=== PATIENT | male | born 1960 | race Caucasian/White ===

== ENCOUNTER 2020-09-08 10:05 | Outpatient (REF) | payer OTHER, SELFPAY ==
[2020-09-08 11:16] LABS: MANUAL DIFF FLAG NO
[2020-09-08 11:28] LABS: Basophils Absolute Auto 0.1 X10*3/uL (0.0-0.2); Basophils Percent Auto 1.1 % (0-2); Eosinophils Absolute Auto 0.1 X10*3/uL (0.0-0.4); Eosinophils Percent Auto 2.6 % (0-4); Hematocrit 40.8 % (42-52); Hemoglobin 13.8 g/dl (14.0-18.0); Imm Gran Abs Auto 0.01 X10*3/uL (0.00-0.03); Imm Gran Pct Auto 0.2 % (0.0-0.4); Lymphocytes Absolute Auto 0.9 X10*3/uL (1.2-4.9); Lymphocytes Percent Auto 19.2 % (20-40); Mean Corpuscular HGB Conc 33.8 g/dl (31.0-36.0); Mean Corpuscular Hemoglobin 29.2 pg (27.0-33.0); Mean Corpuscular Volume 86.4 fL (80-98); Mean Platelet Volume 10.7 fL (9.4-12.4); Monocytes Absolute Auto 0.3 X10*3/uL (0.1-1.2); Neutrophils Absolute Auto 3.3 X10*3/uL (2.0-8.3); Neutrophils Percent Auto 70.9 % (45-73); Platelet Count 185 X10*3/uL (160-400); Red Blood Count 4.72 X10*6/uL (4.60-5.80); Red Cell Distribution Width 13.2 % (11.0-16.0); White Blood Count 4.7 X10*3/uL (4.8-10.8)
[2020-09-08 11:32] LABS: Estimated Average Glucose 134 mg/dL; Hemoglobin A1c % 6.3 %
[2020-09-08 12:17] LABS: Alanine Aminotransferase 64 U/L (0-40); Albumin Level 4.2 g/dL (3.5-5.0); Alkaline Phosphatase 81 U/L (39-117); Anion Gap 12 (12-20); Aspartate Amino Transferase 42 U/L (5-37); Bilirubin Total 0.6 mg/dL (0.0-1.0); Blood Urea Nitrogen 17 mg/dL (9-16); Calcium 9.2 mg/dL (8.4-10.2); Carbon Dioxide 29 mmol/L (22-29); Chloride 102 mmol/L (96-108); Cholesterol 156 mg/dL; Estimated Glomerular Filt Rate > 60; Glucose Fasting 134 mg/dL (60-99); HDL Cholesterol 23 mg/dL; Potassium 4.2 mmol/l (3.3-5.1); Sodium 139 mmol/L (135-145); Total Protein 7.3 g/dL (6.5-8.0); Triglycerides 722 mg/dL
== END 2020-09-08 10:06 | disposition home or self-care (01) ==
LOC: HO.LAB 10:05
PROVIDERS: PCP Internal Medicine Medical Oncology; Visit Provider Internal Medicine Medical Oncology
DX: I10 Essential (primary) hypertension (principal); E66.9 Obesity, unspecified; E11.40 Type 2 diabetes mellitus with diabetic neuropathy, unspecified; E78.00 Pure hypercholesterolemia, unspecified
CPT/HCPCS: 36415; 80053; 80061; 83036; 85025

== ENCOUNTER → 2020-09-29 11:35 | Outpatient (BNVA) | payer OTHER, SELFPAY | PROVIDERS: PCP Internal Medicine Medical Oncology; Referring Provider Internal Medicine Medical Oncology; Visit Provider Internal Medicine | DX: G47.33 Obstructive sleep apnea (adult) (pediatric) (principal); E66.9 Obesity, unspecified; Z68.35 Body mass index [BMI] 35.0-35.9, adult; Z99.89 Dependence on other enabling machines and devices | CPT/HCPCS: 99212 ==

== ENCOUNTER 2020-11-18 17:12 | Emergency (ER) | payer OTHER, SELFPAY ==
[2020-11-18 17:49] VITALS: BP 192/99; PULSE 88; RESP 16; TEMP 36.4; O2SAT 96; BMI 35.3
--- NOTE | 2020-11-18 17:50 | ED_ITS ---
HPI - Extremity Injury (Upper) General Chief Complaint: Wound/Laceration Stated Complaint: hand wound Time Seen by Provider: 11/18/20 18:40 Source: patient Mode of arrival: ambulatory Limitations: no limitations History of Present Illness HPI narrative: 60-year-old male with past medical history of diabetes, hyperte nsion, hyperlipidemia, obstructive sleep apnea compliant with CPAP, presents with a right hand crush injury. 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 this afternoon. He cleaned out the wound and applied a Band-Aid but the pain and swelling continued to increase. Does not report any other symptoms. MD complaint: injury to: right and hand Onset (ago): hour(s) Other injuries: none Handedness: right Place: home Severity: moderate Severity scale (1-10): 7 Relieving factors: none Exacerbating factors: movement of extremity Context: crush Associated symptoms: denies other symptoms Treatments prior to arrival: bandage and NSAIDS Related Data Home Medications Medication Instructions Recorded Confirmed insulin glargine 100 unit/mL 90 unit SUBCUT BID ml 09/29/20 09/29/20 subcutaneous solution latanoprost 0.005 % eye drops 1 drp OPHTHALMIC (EYE) DAILY 09/29/20 09/29/20 Previous Rx's Medication Instructions Recorded gabapentin 300 mg capsule 300 mg PO TID #90 cap 11/01/20 Allergies Allergy/AdvReac Type Severity Reaction Status Date / Time pollen extracts [POLLEN] Allergy Unknown WATERY Verified 09/29/20 11:44 EYES/SNEEZING Review of Systems Review of Systems: Constitutional: No Fever, No Chills ENT/Mouth: No Ear Pain, No Hoarseness, No sore throat Eyes: No Eye Pain, No Swelling, No Redness, No Foreign Body Cardiovascular: No Chest Pain, No SOB Respiratory: No Cough, No Dyspnea Gastrointestinal: No Nausea, No Vomiting, No Diarrhea, No abdominal Pain Genitourinary: No Dysuria, No Hematuria Musculoskeletal: positive right hand pain, No Myalgias, No Joint Swelling Skin: No Skin lacerations, No rash Neuro: No Weakness, No Numbness, No Paresthesias, No Loss of Consciousness, No Dizziness, No Headache Psych: No Anxiety/Panic, No Depression Heme/Lymph: no easy bruising, no Lymphadenopathy Endocrine: No Polyuria, No Polydipsia Yes all other systems are reviewed and are negative PMFSH Past Medical History Attestation statement: The following information was validated with the patient. Medical History Diabetes mellitus Hyperlipidemia Hypertension Obesity (BMI 30-39.9) PAT (obstructive sleep apnea) Restless leg syndrome Social History Social History Smoking Status: Never smoker Use of substances other than those prescribed or required for medical reasons: No Advance Directives: No Advance Directives Information Provided: Yes Physical Exam Vital Signs: Vital Signs: Last Vital Signs Temp 97.5 F 11/18/20 17:49 Pulse 88 11/18/20 17:49 Resp 16 11/18/20 17:49 BP 192/99 H 11/18/20 17:49 Pulse Ox 96 11/18/20 17:49 Body Mass Index 35.3 Appearance: Alert. Oriented X3. No acute distress. Eyes: Pupils equal, round and reactive to light. ENT: Pharynx normal. Neck: Normal inspection. Neck supple. CVS: Normal heart rate and rhythm. Pulses normal. Respiratory: No respiratory distress. Breath sounds normal. Abdomen: Soft and nontender. Skin: Skin warm and dry. Normal skin color. Normal skin turgor. Extremities: No lower extremity edema. Neuro: No motor deficit. No sensory deficit. Skin: Other: Extrem: Other: Course Course Course Narrative: 60-year-old male with right hand crush injury, plan of care is for laceration repair and x-rays. He has full range of motion to all of his digits, brisk capillary refill and equal pulses to both extremities. Neurovascularly intact. Laceration is superficial, plan of care is for bacitracin and bandage, 1st metacarpal flange nondisplaced fracture. Plan of care is right thumb spica splint and for follow-up with Orthopedics. Neurovascularly intact with brisk capillary refill to all digits status post thumb spica splint. Patient verbalized understanding of and agrees plan of care discharge home. MDM - Extremity Injury (Upper) Differential Diagnosis Differential diagnosis: Likely fracture of wrist and fracture of hand Medical Records Attestation: I reviewed the patient's medical records. Lab Data Attestation: I reviewed the patient's lab results. Imaging Data Right hand x-ray: Attestation: I personally reviewed and interpreted this imaging study as follows: Radiologist's impression: EXAMINATION: XR HAND, RIGHT CLINICAL INFORMATION: Crush injury COMPARISON: Right hand films 03/28/2011 TECHNIQUE: PA, lateral, and oblique views of the right hand. FINDINGS: There is an acute transverse nondisplaced fracture involving the proximal diaphysis of the first metacarpal. Some mild mottling is noted in the soft tissues in this region which could be related to the patient's crush injury. No radiopaque foreign bodies are seen. No other fractures are detected. A small cyst is noted in the navicular. XR/XR hand RT min 3V IMPRESSION: Nondisplaced transverse fracture of the proximal diaphysis of the first metacarpal Discharge Plan Discharge Clinical Impression: Abrasion First metacarpal bone fracture Qualifiers: Encounter type: initial encounter Fracture type: closed Metacarpal location: shaft Fracture alignment: nondisplaced Laterality: right Qualified Code(s): S62.244A - Nondisplaced fracture of shaft of first metacarpal bone, right hand, initial encounter for closed fracture Patient Disposition: Home, Self-Care Instructions: Hand Fracture (ED), Thumb Fracture (ED) Additional Instructions: You were evaluated for a crush injury to the right hand. You have a metacarpal fracture, a fracture of 1 of the bones for your thumb. We have placed you in a thumb spica splint. Please keep the splint in place until you follow-up with orthopedics. Please call Dr. Braxton and request an appointment. Please let him know that you are diabetic and you have an abrasion over the fracture site. Thank you for choosing this emergency department for evaluation. Please follow-up with primary care physician as needed. Return to the emergency department for any new, concerning, or worsening symptoms. Prescriptions: No Action gabapentin 300 mg capsule 300 mg PO TID Qty: 90 RF: 0 Lantus U-100 Insulin 100 unit/mL solution 90 unit subcut BID RF: 0 latanoprost 0.005 % drops 1 drp ophthalmic (eye) DAILY RF: 0 Referrals: Contreras Braxton MD [Physician] - 2 days (First metacarpal nondisplaced fracture, right hand)
== END 2020-11-18 19:19 | disposition home or self-care (01) ==
PROVIDERS: Emergency Provider Emergency Medicine; PCP Internal Medicine Medical Oncology
DX: S62.244A Nondisplaced fracture of shaft of first metacarpal bone, right hand, initial encounter for closed fracture (principal); W20.8XXA Other cause of strike by thrown, projected or falling object, initial encounter; E11.9 Type 2 diabetes mellitus without complications; I10 Essential (primary) hypertension; Y93.H3 Activity, building and construction; Y92.019 Unspecified place in single-family (private) house as the place of occurrence of the external cause; Y99.9 Unspecified external cause status; Z79.4 Long term (current) use of insulin
CPT/HCPCS: 29125; 73130; 90471; 90715; 99284

== ENCOUNTER → 2020-11-25 13:19 | Outpatient (BNVA) | payer OTHER, SELFPAY | PROVIDERS: Visit Provider Orthopaedic Surgery | DX: S62.233A Other displaced fracture of base of first metacarpal bone, unspecified hand, initial encounter for closed fracture (principal) | CPT/HCPCS: 99202 ==

== ENCOUNTER 2020-12-16 09:19 | Outpatient (REF) | payer OTHER, SELFPAY ==
--- NOTE | 2020-12-16 11:31 | XR_ITS ---
EXAMINATION: XR HAND, RIGHT CLINICAL INFORMATION: Fracture. COMPARISON: Right hand radiographs dated 11/18/2020 TECHNIQUE: PA, lateral, and oblique views of the right hand. FINDINGS: Redemonstration of an oblique fracture through the 1st metacarpal diaphysis in similar anatomic alignment. No significant new bone/callus formation. No joint space narrowing or marginal osteophytes. No osseous erosion. No abnormal soft tissue calcification. XR/XR hand RT min 3V IMPRESSION: First metacarpal fracture in similar anatomic alignment without new bone/callus formation.
== END 2020-12-16 09:20 | disposition home or self-care (01) ==
LOC: HO.HOSX 09:19
PROVIDERS: Visit Provider Orthopaedic Surgery
DX: S62.201D Unspecified fracture of first metacarpal bone, right hand, subsequent encounter for fracture with routine healing (principal)
CPT/HCPCS: 73130; 99212

== ENCOUNTER 2021-01-20 07:50 | Outpatient (REF) | payer OTHER, SELFPAY ==
--- NOTE | ~2021-01-20 | XR_ITS ---
EXAMINATION: XR HAND, RIGHT CLINICAL INFORMATION: Fracture first metacarpal. Follow-up. COMPARISON: Radiographs right hand 12/16/2020, 11/18/2020 TECHNIQUE: PA, lateral, and oblique views of the right hand. FINDINGS: The right first metacarpal shaft fracture is unchanged in alignment. There is some callus formation present. Fracture line still visible. No new fracture or destructive process. XR/XR hand RT min 3V IMPRESSION: Healing fracture right first metacarpal. No change in alignment.
== END 2021-01-20 07:51 | disposition home or self-care (01) ==
LOC: HO.HOSX 07:50
PROVIDERS: Visit Provider Orthopaedic Surgery
DX: S62.501A Fracture of unspecified phalanx of right thumb, initial encounter for closed fracture (principal)
CPT/HCPCS: 73130; 99212

== ENCOUNTER 2021-03-09 10:30 | Outpatient (REF) | payer OTHER, SELFPAY ==
--- NOTE | 2021-03-09 10:32 | EMG_ITS ---
This is a 60-year-old man with a 40-year history of diabetes, who is known to have diabetic peripheral neuropathy. He has had numbness in both hands, but now has lost use in the right hand, which has become quite weak. PHYSICAL EXAMINATION: On examination, he has marked weakness of the intrinsic hand muscles, both in opposition, abductor pollicis brevis, and finger spread, and diffuse loss of sensation. He is areflexic throughout with distal sensory loss. IMPRESSION: Diabetic neuropathy with superimposed median and ulnar neuropathy. Nerve conduction EMG study: Severe diffuse sensory motor peripheral neuropathy in the upper extremities with severe compression palsy of the left ulnar nerve at the elbow and end-stage right median neuropathy. EMG of the right upper extremity shows active denervation in the intrinsic hand muscles of the right hand, innervated both by ulnar and median nerves. MD ALEC Pedraza/ARTISL / [id number]
== END 2021-03-09 10:31 | disposition home or self-care (01) ==
LOC: HO.NEURO 10:30
PROVIDERS: PCP Internal Medicine Medical Oncology; Visit Provider Orthopaedic Surgery
DX: R20.0 Anesthesia of skin (principal)
CPT/HCPCS: 95885; 95910

== ENCOUNTER → 2021-04-05 11:37 | Outpatient (BNVA) | payer OTHER, SELFPAY | PROVIDERS: PCP Internal Medicine Medical Oncology; Visit Provider Internal Medicine | DX: E66.9 Obesity, unspecified (principal); G47.33 Obstructive sleep apnea (adult) (pediatric); R06.00 Dyspnea, unspecified | CPT/HCPCS: 99212 ==

== ENCOUNTER 2021-09-13 09:48 | Outpatient (REF) | payer OTHER, SELFPAY ==
[2021-09-13 10:08] LABS: MANUAL DIFF FLAG NO
[2021-09-13 10:41] LABS: Basophils Percent Auto 0.9 % (0-2); Eosinophils Absolute Auto 0.1 X10*3/uL (0.0-0.4); Hemoglobin 13.7 g/dl (14.0-18.0); Imm Gran Abs Auto 0.01 X10*3/uL (0.00-0.03); Imm Gran Pct Auto 0.2 % (0.0-0.4); Lymphocytes Absolute Auto 1.1 X10*3/uL (1.2-4.9); Lymphocytes Percent Auto 24.2 % (20-40); Mean Corpuscular HGB Conc 34.3 g/dl (31.0-36.0); Mean Corpuscular Hemoglobin 29.1 pg (27.0-33.0); Mean Corpuscular Volume 84.9 fL (80-98); Mean Platelet Volume 10.5 fL (9.4-12.4); Monocytes Absolute Auto 0.3 X10*3/uL (0.1-1.2); Monocytes Percent Auto 7.2 % (2-11); Neutrophils Absolute Auto 2.8 X10*3/uL (2.0-8.3); Neutrophils Percent Auto 64.5 % (45-73); Platelet Count 170 X10*3/uL (160-400); Red Blood Count 4.71 X10*6/uL (4.60-5.80); Red Cell Distribution Width 13.2 % (11.0-16.0); White Blood Count 4.3 X10*3/uL (4.8-10.8)
[2021-09-13 11:07] LABS: Estimated Average Glucose 148 mg/dL; Hemoglobin A1c % 6.8 %
[2021-09-13 11:16] LABS: Alanine Aminotransferase 66 U/L (0-40); Albumin Level 4.3 g/dL (3.5-5.0); Alkaline Phosphatase 80 U/L (39-117); Anion Gap 16 (12-20); Aspartate Amino Transferase 46 U/L (5-37); Bilirubin Total 0.5 mg/dL (0.0-1.0); Blood Urea Nitrogen 18 mg/dL (9-16); Calcium 9.4 mg/dL (8.4-10.2); Carbon Dioxide 25 mmol/L (22-29); Chloride 103 mmol/L (96-108); Cholesterol 132 mg/dL; Estimated Glomerular Filt Rate 59; Glucose Fasting 171 mg/dL (60-99); HDL Cholesterol 24 mg/dL; Potassium 4.6 mmol/L (3.3-5.1); Sodium 139 mmol/L (135-145); Total Protein 7.1 g/dL (6.5-8.0); Triglycerides 406 mg/dL
[2021-09-13 14:29] LABS: Creatinine Urine 58.84 mg/dL; Microalbum/Creatinine Ratio Ur 149.5 ug/mg cr
== END 2021-09-13 09:49 | disposition home or self-care (01) ==
LOC: HO.LAB 09:48
PROVIDERS: PCP Internal Medicine Medical Oncology; Visit Provider Internal Medicine Medical Oncology
DX: I10 Essential (primary) hypertension (principal); E11.40 Type 2 diabetes mellitus with diabetic neuropathy, unspecified; D70.9 Neutropenia, unspecified; E78.5 Hyperlipidemia, unspecified
CPT/HCPCS: 36415; 80053; 80061; 82043; 83036; 85025

== ENCOUNTER → 2021-10-04 11:31 | Outpatient (BNVA) | payer OTHER, SELFPAY | PROVIDERS: PCP Internal Medicine Medical Oncology; Visit Provider Internal Medicine | DX: G47.33 Obstructive sleep apnea (adult) (pediatric) (principal); E66.9 Obesity, unspecified; R06.00 Dyspnea, unspecified | CPT/HCPCS: 99212 ==

== ENCOUNTER 2021-10-12 08:24 | Outpatient (REF) | payer OTHER, SELFPAY ==
--- NOTE | ~2021-10-12 | XR_ITS ---
EXAMINATION: XR HAND, RIGHT CLINICAL INFORMATION: Pain COMPARISON: None TECHNIQUE: PA, lateral, and oblique views of the right hand. FINDINGS: No fracture or dislocation. Alignment is anatomic. Joint spaces are maintained. No osseous erosion. The soft tissues are unremarkable. XR/XR hand RT min 3V IMPRESSION: Normal right hand.
== END 2021-10-12 08:25 | disposition home or self-care (01) ==
LOC: HO.HOSX 08:24
PROVIDERS: Visit Provider Orthopaedic Surgery
DX: G56.03 Carpal tunnel syndrome, bilateral upper limbs (principal); G56.21 Lesion of ulnar nerve, right upper limb; G56.22 Lesion of ulnar nerve, left upper limb
CPT/HCPCS: 73130; 99202

== ENCOUNTER → 2022-04-04 11:31 | Outpatient (BNVA) | payer OTHER, SELFPAY | PROVIDERS: PCP Internal Medicine Medical Oncology; Visit Provider Internal Medicine | DX: G47.33 Obstructive sleep apnea (adult) (pediatric) (principal); E66.9 Obesity, unspecified; Z68.37 Body mass index [BMI] 37.0-37.9, adult | CPT/HCPCS: 99212 ==

== ENCOUNTER 2022-10-09 11:12 | Outpatient (REF) | payer OTHER, SELFPAY ==
[2022-10-09 11:29] LABS: MANUAL DIFF FLAG NO
[2022-10-09 11:36] LABS: Basophils Percent Auto 0.6 % (0-2); Eosinophils Absolute Auto 0.1 X10*3/uL (0.0-0.4); Eosinophils Percent Auto 2.2 % (0-4); Hematocrit 40.5 % (42.0-52.0); Imm Gran Abs Auto 0.01 X10*3/uL (0.00-0.03); Imm Gran Pct Auto 0.2 % (0.0-0.4); Lymphocytes Percent Auto 21.4 % (20-40); Mean Corpuscular HGB Conc 34.6 g/dl (31.0-36.0); Mean Corpuscular Hemoglobin 29.5 pg (27.0-33.0); Mean Corpuscular Volume 85.4 fL (80.0-98.0); Mean Platelet Volume 10.2 fL (9.4-12.4); Monocytes Absolute Auto 0.3 X10*3/uL (0.1-1.2); Monocytes Percent Auto 6.3 % (2-11); Neutrophils Absolute Auto 3.2 x10*3/uL (2.0-8.3); Neutrophils Percent Auto 69.3 % (45-73); Platelet Count 171 X10*3/uL (160-400); Red Blood Count 4.74 X10*6/uL (4.60-5.80); Red Cell Distribution Width 13.3 % (11.0-16.0); White Blood Count 4.6 X10*3/uL (4.8-10.8)
[2022-10-09 11:46] LABS: Estimated Average Glucose 123 mg/dL; Hemoglobin A1C 150.5221 umol/L; Hemoglobin A1c % 5.9 %
[2022-10-09 13:04] LABS: Alanine Aminotransferase 125 U/L (0-40); Albumin Level 4.5 g/dL (3.5-5.0); Alkaline Phosphatase 81 U/L (39-117); Anion Gap 15 (12-20); Aspartate Amino Transferase 99 U/L (5-37); Bilirubin Total 0.6 mg/dL (0.0-1.0); Blood Urea Nitrogen 19 mg/dL (9-16); Calcium 9.5 mg/dL (8.4-10.2); Carbon Dioxide 26 mmol/L (22-29); Chloride 102 mmol/L (96-108); Cholesterol 147 mg/dL; Estimated Glomerular Filt Rate > 60; Glucose Fasting 111 mg/dL (60-99); HDL Cholesterol 27 mg/dL; Potassium 4.1 mmol/L (3.3-5.1); Sodium 139 mmol/L (135-145); Total Protein 7.5 g/dL (6.5-8.0); Triglycerides 425 mg/dL
[2022-10-09 14:30] LABS: Creatinine Urine 29.36 mg/dL; Microalbum/Creatinine Ratio Ur 425.7 ug/mg cr
== END 2022-10-09 11:13 | disposition home or self-care (01) ==
LOC: HO.LAB 11:12
PROVIDERS: PCP Internal Medicine Medical Oncology; Visit Provider Internal Medicine Medical Oncology
DX: I10 Essential (primary) hypertension (principal); E11.40 Type 2 diabetes mellitus with diabetic neuropathy, unspecified
CPT/HCPCS: 36415; 80053; 80061; 82043; 83036; 85025

== ENCOUNTER → 2022-10-10 11:32 | Outpatient (BNVA) | payer OTHER, SELFPAY | PROVIDERS: PCP Internal Medicine Medical Oncology; Visit Provider Internal Medicine | DX: G47.33 Obstructive sleep apnea (adult) (pediatric) (principal); E66.9 Obesity, unspecified; Z68.36 Body mass index [BMI] 36.0-36.9, adult | CPT/HCPCS: 99212 ==

== ENCOUNTER 2022-10-25 10:44 | Outpatient (REF) | payer OTHER, SELFPAY ==
[2022-10-25 11:10] LABS: MANUAL DIFF FLAG NO
[2022-10-25 12:14] LABS: Basophils Absolute Auto 0.1 X10*3/uL (0.0-0.2); Basophils Percent Auto 1.1 % (0-2); Eosinophils Absolute Auto 0.1 X10*3/uL (0.0-0.4); Hemoglobin 13.9 g/dl (14.0-18.0); Imm Gran Abs Auto 0.02 X10*3/uL (0.00-0.03); Imm Gran Pct Auto 0.4 % (0.0-0.4); Lymphocytes Absolute Auto 1.2 X10*3/uL (1.2-4.9); Mean Corpuscular HGB Conc 33.9 g/dl (31.0-36.0); Mean Corpuscular Hemoglobin 28.7 pg (27.0-33.0); Mean Corpuscular Volume 84.7 fL (80.0-98.0); Mean Platelet Volume 10.1 fL (9.4-12.4); Monocytes Absolute Auto 0.4 X10*3/uL (0.1-1.2); Monocytes Percent Auto 8.3 % (2-11); Neutrophils Absolute Auto 2.9 x10*3/uL (2.0-8.3); Neutrophils Percent Auto 61.2 % (45-73); Platelet Count 170 X10*3/uL (160-400); Red Blood Count 4.84 X10*6/uL (4.60-5.80); Red Cell Distribution Width 13.3 % (11.0-16.0); White Blood Count 4.7 X10*3/uL (4.8-10.8)
[2022-10-25 12:33] LABS: Estimated Average Glucose 126 mg/dL; Hemoglobin A1C 152.2652 umol/L
[2022-10-25 12:37] LABS: Alanine Aminotransferase 128 U/L (0-40); Albumin Level 4.1 g/dL (3.5-5.0); Alkaline Phosphatase 76 U/L (39-117); Anion Gap 13 (12-20); Aspartate Amino Transferase 78 U/L (5-37); Bilirubin Total 0.5 mg/dL (0.0-1.0); Blood Urea Nitrogen 16 mg/dL (9-16); Carbon Dioxide 28 mmol/L (22-29); Chloride 100 mmol/L (96-108); Cholesterol 122 mg/dL; Estimated Glomerular Filt Rate > 60; Glucose Fasting 112 mg/dL (60-99); HDL Cholesterol 25 mg/dL; LDL Cholesterol Calculated 32 mg/dl; Potassium 4.1 mmol/L (3.3-5.1); Sodium 137 mmol/L (135-145); Triglycerides 327 mg/dL
[2022-10-25 13:06] LABS: Creatinine Urine 28.41 mg/dL; Microalbum/Creatinine Ratio Ur 253.4 ug/mg cr
== END 2022-10-25 10:45 | disposition home or self-care (01) ==
LOC: HO.LAB 10:44
PROVIDERS: PCP Internal Medicine Medical Oncology; Visit Provider Internal Medicine Medical Oncology
DX: E11.40 Type 2 diabetes mellitus with diabetic neuropathy, unspecified (principal); E66.9 Obesity, unspecified; E78.5 Hyperlipidemia, unspecified
CPT/HCPCS: 36415; 80053; 80061; 82043; 83036; 85025

== ENCOUNTER 2022-11-10 12:27 | Outpatient (REF) | payer OTHER, SELFPAY ==
[2022-11-10 13:39] LABS: COVID-19 Test Positive (Negative); IDNOW Serial# BCCEAD1C
== END 2022-11-10 12:28 | disposition home or self-care (01) ==
LOC: HO.LAB 12:27
PROVIDERS: Visit Provider Internal Medicine
DX: Z20.822 Contact with and (suspected) exposure to COVID-19 (principal)
CPT/HCPCS: 87635; C9803

== ENCOUNTER 2022-11-13 13:53 | Outpatient (REF) | payer OTHER, SELFPAY ==
[2022-11-13 14:34] LABS: IDNOW Serial# 55D5AD1C
[2022-11-13 14:35] LABS: COVID-19 Test Positive (Negative)
== END 2022-11-13 13:54 | disposition home or self-care (01) ==
LOC: HO.LAB 13:53
PROVIDERS: Visit Provider Internal Medicine
DX: Z20.822 Contact with and (suspected) exposure to COVID-19 (principal)
CPT/HCPCS: 87635; C9803

== ENCOUNTER 2022-11-22 15:37 | Outpatient (REF) | payer OTHER, SELFPAY ==
[2022-11-22 16:13] LABS: COVID-19 Test Positive (Negative); IDNOW Serial# 9DB6401D
== END 2022-11-22 15:38 | disposition home or self-care (01) ==
LOC: HO.LAB 15:37
PROVIDERS: Visit Provider Internal Medicine
DX: Z20.822 Contact with and (suspected) exposure to COVID-19 (principal)
CPT/HCPCS: 87635; C9803

== ENCOUNTER 2023-02-01 10:03 | Outpatient (REF) | payer OTHER, SELFPAY ==
[2023-02-01 10:19] LABS: MANUAL DIFF FLAG NO
[2023-02-01 11:35] LABS: Basophils Percent Auto 0.8 % (0-2); Eosinophils Absolute Auto 0.2 X10*3/uL (0.0-0.4); Eosinophils Percent Auto 3.1 % (0-4); Hematocrit 40.1 % (42.0-52.0); Hemoglobin 13.8 g/dl (14.0-18.0); Lymphocytes Absolute Auto 1.3 X10*3/uL (1.2-4.9); Lymphocytes Percent Auto 24.6 % (20-40); Mean Corpuscular HGB Conc 34.4 g/dl (31.0-36.0); Mean Corpuscular Hemoglobin 29.6 pg (27.0-33.0); Mean Corpuscular Volume 85.9 fL (80.0-98.0); Mean Platelet Volume 10.2 fL (9.4-12.4); Monocytes Absolute Auto 0.4 X10*3/uL (0.1-1.2); Monocytes Percent Auto 7.6 % (2-11); Neutrophils Absolute Auto 3.3 x10*3/uL (2.0-8.3); Neutrophils Percent Auto 63.9 % (45-73); Platelet Count 175 X10*3/uL (160-400); Red Blood Count 4.67 X10*6/uL (4.60-5.80); Red Cell Distribution Width 13.3 % (11.0-16.0); White Blood Count 5.1 X10*3/uL (4.8-10.8)
[2023-02-01 11:48] LABS: Estimated Average Glucose 137 mg/dL; Hemoglobin A1c % 6.4 %
[2023-02-01 12:46] LABS: Creatinine Urine 116.17 mg/dL
[2023-02-01 15:24] LABS: Alanine Aminotransferase 83 U/L (0-40); Albumin Level 4.2 g/dL (3.5-5.0); Alkaline Phosphatase 69 U/L (39-117); Anion Gap 15 (12-20); Aspartate Amino Transferase 56 U/L (5-37); Bilirubin Total 0.7 mg/dL (0.0-1.0); Blood Urea Nitrogen 16 mg/dL (9-16); Calcium 9.1 mg/dL (8.4-10.2); Carbon Dioxide 28 mmol/L (22-29); Chloride 103 mmol/L (96-108); Cholesterol 87 mg/dL; Estimated Glomerular Filt Rate 59; Glucose Fasting 111 mg/dL (60-99); HDL Cholesterol 26 mg/dL; LDL Cholesterol Calculated 24 mg/dl; Potassium 4.6 mmol/L (3.3-5.1); Sodium 141 mmol/L (135-145); Total Protein 6.8 g/dL (6.5-8.0); Triglycerides 185 mg/dL
== END 2023-02-01 10:04 | disposition home or self-care (01) ==
LOC: HO.LAB 10:03
PROVIDERS: PCP Internal Medicine Medical Oncology; Visit Provider Internal Medicine Medical Oncology
DX: E66.9 Obesity, unspecified (principal); E11.40 Type 2 diabetes mellitus with diabetic neuropathy, unspecified; E78.5 Hyperlipidemia, unspecified
CPT/HCPCS: 36415; 80053; 80061; 82043; 83036; 85025

== ENCOUNTER → 2023-04-10 11:02 | Outpatient (BNVA) | payer OTHER, SELFPAY | PROVIDERS: PCP Internal Medicine Medical Oncology; Visit Provider Internal Medicine | DX: G47.33 Obstructive sleep apnea (adult) (pediatric) (principal); E66.9 Obesity, unspecified; Z68.36 Body mass index [BMI] 36.0-36.9, adult | CPT/HCPCS: 99212 ==

== ENCOUNTER 2023-04-23 06:05 | Emergency (ER) | payer OTHER, SELFPAY ==
[2023-04-23 06:36] VITALS: BP 159/73; PULSE 71; RESP 18; TEMP 37.1; O2SAT 98; BMI 36.7
--- NOTE | 2023-04-23 06:53 | ED_ITS ---
HPI - Dental/Oral General Chief complaint: Dental/Oral Stated complaint: tooth pain Time Seen by Provider: 04/23/23 06:29 Source: patient Mode of arrival: ambulatory Limitations: no limitations History of Present Illness HPI Narrative: 62 y/o male with history of PAT, carpal tunnel syndrome s/p recent surgery who presents to the ER for evaluation of a left upper toothache for the last month, got acutely worse last night. States he was seen by the [facility] dental clinic on April 12 for this for which she got prescribed amoxicillin and Tylenol. He completed the course of antibiotics with improvement in the pain. He reports taking leftover oxycodone from his wrist surgery for severe pain. His PCP also prescribed him some tramadol which she had been taking as well. He states last night the pain got worse and was keeping him up. He denies any new dental trauma. No facial swelling. No fevers. MD Complaint: tooth pain Location: Tooth # (16) Onset (ago): week(s) Duration: constant Severity: severe Severity scale (1-10): 10 Relieving factors: prescription analgesics Exacerbating factors: nothing Context: trauma (mechanism) and poor dental care Treatment prior to arrival: none Related Data Home Medications Medication Instructions Recorded Confirmed insulin glargine 100 unit/mL 90 unit subcut BID 09/29/20 09/29/20 subcutaneous solution (Lantus U-100 Insulin) latanoprost 0.005 % eye drops 1 drp ophthalmic (eye) DAILY 09/29/20 09/29/20 fenofibrate 160 mg tablet 160 mg PO DAILY 11/25/20 lisinopril 20 mg tablet 20 mg PO BID 11/25/20 omeprazole 20 mg capsule,delayed 20 mg PO DAILY 11/25/20 release insulin lispro 100 unit/mL subcut 04/05/21 subcutaneous solution insulin syringe-needle U-100 1 mL #10 ea 04/05/21 29 gauge x 1/2 atorvastatin 10 mg tablet 10 mg PO DAILY 04/10/23 betamethasone dipropionate 0.05 % topical 04/10/23 topical ointment Previous Rx's Medication Instructions Recorded gabapentin 300 mg capsule 300 mg PO TID #90 caps 04/13/23 amoxicillin 875 mg-potassium 1 tab PO BID #20 tabs 04/23/23 clavulanate 125 mg tablet ibuprofen 600 mg tablet 600 mg PO Q8H PRN pain #14 tabs 04/23/23 tramadol 50 mg tablet 50 mg PO Q6H PRN severe pain 04/23/23 (scale score 7-10) #10 tabs Allergies Allergy/AdvReac Type Severity Reaction Status Date / Time pollen extracts [POLLEN] Allergy Unknown WATERY Verified 04/10/23 11:20 EYES/SNEEZING Review of Systems Review of Systems: Yes all other systems are reviewed and are negative [facility] Past Medical History Medical History Closed fracture of right thumb Diabetes mellitus Dyspnea on exertion Hand weakness Hyperlipidemia Hypertension Obesity (BMI 30-39.9) PAT (obstructive sleep apnea) Restless leg syndrome Right hand weakness Social History Social History Patient Tobacco Use Status: Never used Tobacco Advance Directives: No Advance Directives Information Provided: No Current occupation: Right Handed Physical Exam Vital Signs: Vital Signs: Last Vital Signs Temp 98.7 F 04/23/23 06:36 Pulse 71 04/23/23 06:36 Resp 18 04/23/23 06:36 BP 159/73 H 04/23/23 06:36 Pulse Ox 98 04/23/23 06:36 O2 Del Method Room Air 04/23/23 06:36 BMI result Body Mass Index 36.7 Appearance: Alert. Oriented X3. No acute distress. HEENT: Normocephalic, atraumatic. Face is symmetrical, no facial swelling. No trismus. Poor dentition. Left upper molar, tooth 16. With broken tooth, decay present, tenderness present, mild associated gingival tenderness without swelling or fluctuance. Moist mucous membranes of the oropharynx with uvula midline, no tonsillar swelling. Normal voice, handling secretions normally. CVS: Normal heart rate and rhythm. Pulses normal. Respiratory: No respiratory distress. Lungs are clear throughout Skin: Skin warm and dry. Normal skin color. Normal skin turgor. No rashes. Extremities: Normal inspection x4. Neuro: Oriented X 3. No motor deficit. No sensory deficit. Medical Decision Making Medical Decision Making MDM Narrative: 62-year-old male presents to the ER for evaluation of acute on chronic toothache, left upper molar. Tooth is broken and tender, no appreciated abscess on examination. He responded well to antibiotics, will repeat course of antibiotics, changed to Augmentin. Will provide pain control. Will have him follow-up with his dentist and PCP tomorrow. He is stable for discharge home. Differential Diagnosis Differential Diagnoses: The differential diagnosis associated with the pres entation includes Toothache, dental abscess, dental fracture External Record Review External record reviewed: Prior outpatient labs Prescription Management I considered prescription management with: Pain Medication and Antibiotic Critical Care Time Critical Care Time Critical Care Time: No Discharge Plan Discharge Clinical Impression: Toothache Patient Disposition: Home, Self-Care Instructions: Toothache (ED) Additional Instructions: take the prescribed antibiotic as directed - start it perez, do not miss any doses and complete the entire course continue tylenol around the clock start ibuprofen 600 mg every 8 hours - take with food take the prescribed tramadol as needed for severe pain only follow up with your doctor and your dentist tomorrow Prescriptions: New amoxicillin-pot clavulanate 875-125 mg tablet 1 tab PO BID Qty: 20 0RF ibuprofen 600 mg tablet 600 mg PO Q8H PRN (Reason: pain) Qty: 14 0RF tramadol 50 mg tablet 50 mg PO Q6H PRN (Reason: severe pain (scale score 7-10)) Qty: 10 0RF No Action gabapentin 300 mg capsule 300 mg PO TID Qty: 90 0RF Lantus U-100 Insulin 100 unit/mL solution 90 unit subcut BID latanoprost 0.005 % drops 1 drp ophthalmic (eye) DAILY insulin lispro 100 unit/mL solution subcut (DME) insulin syringe-needle U-100 1 mL 29 gauge x 1/2 syringe See Rx Instructions .ROUTE QID Qty: 10 Rx Instructions: As directed lisinopril 20 mg tablet 20 mg PO BID fenofibrate 160 mg tablet 160 mg PO DAILY omeprazole 20 mg capsule,delayed release(DR/EC) 20 mg PO DAILY atorvastatin 10 mg tablet 10 mg PO DAILY betamethasone dipropionate 0.05 % ointment topical Referrals: Wander Reich MD [Primary Care Provider] -
[2023-04-23] MEDS: Ketorolac Tromethamine 30 MG/ML VIAL IM (07:20)
== END 2023-04-23 07:23 | disposition home or self-care (01) ==
PROVIDERS: Emergency Provider Student in an Organized Health Care Education/Training Program; PCP Internal Medicine Medical Oncology
DX: K08.89 Other specified disorders of teeth and supporting structures (principal); Z79.899 Other long term (current) drug therapy
CPT/HCPCS: 96372; 99283; 99284; J1885

== ENCOUNTER 2023-05-10 10:34 | Outpatient (REF) | payer OTHER, SELFPAY ==
[2023-05-10 10:47] LABS: MANUAL DIFF FLAG NO
[2023-05-10 11:05] LABS: Basophils Percent Auto 0.9 % (0-2); Eosinophils Absolute Auto 0.2 X10*3/uL (0.0-0.4); Eosinophils Percent Auto 3.6 % (0-4); Hematocrit 38.6 % (42.0-52.0); Hemoglobin 13.2 g/dl (14.0-18.0); Imm Gran Abs Auto 0.01 X10*3/uL (0.00-0.03); Imm Gran Pct Auto 0.2 % (0.0-0.4); Lymphocytes Absolute Auto 1.1 X10*3/uL (1.2-4.9); Lymphocytes Percent Auto 24.4 % (20-40); Mean Corpuscular HGB Conc 34.2 g/dl (31.0-36.0); Mean Corpuscular Hemoglobin 29.5 pg (27.0-33.0); Mean Corpuscular Volume 86.2 fL (80.0-98.0); Mean Platelet Volume 9.9 fL (9.4-12.4); Monocytes Absolute Auto 0.3 X10*3/uL (0.1-1.2); Monocytes Percent Auto 6.5 % (2-11); Neutrophils Absolute Auto 2.9 x10*3/uL (2.0-8.3); Neutrophils Percent Auto 64.4 % (45-73); Platelet Count 173 X10*3/uL (160-400); Red Blood Count 4.48 X10*6/uL (4.60-5.80); Red Cell Distribution Width 13.3 % (11.0-16.0); White Blood Count 4.4 X10*3/uL (4.8-10.8)
[2023-05-10 11:30] LABS: Estimated Average Glucose 126 mg/dL
[2023-05-10 11:58] LABS: Alanine Aminotransferase 50 U/L (0-40); Albumin Level 4.1 g/dL (3.5-5.0); Alkaline Phosphatase 74 U/L (39-117); Anion Gap 12 (12-20); Aspartate Amino Transferase 42 U/L (5-37); Bilirubin Total 0.6 mg/dL (0.0-1.0); Blood Urea Nitrogen 13 mg/dL (9-16); Calcium 9.5 mg/dL (8.4-10.2); Carbon Dioxide 28 mmol/L (22-29); Chloride 105 mmol/L (96-108); Estimated Glomerular Filt Rate > 60; Glucose Random 137 mg/dL (60-115); Potassium 4.4 mmol/L (3.3-5.1); Sodium 141 mmol/L (135-145); Total Protein 7.1 g/dL (6.5-8.0)
[2023-05-10 12:01] LABS: Prostate Specific Antigen 0.15 ng/mL (<0.05-4.0)
== END 2023-05-10 10:35 | disposition home or self-care (01) ==
LOC: HO.LAB 10:34
PROVIDERS: PCP Internal Medicine Medical Oncology; Visit Provider Internal Medicine Medical Oncology
DX: I10 Essential (primary) hypertension (principal); E11.40 Type 2 diabetes mellitus with diabetic neuropathy, unspecified; D70.9 Neutropenia, unspecified; N52.9 Male erectile dysfunction, unspecified; Z12.5 Encounter for screening for malignant neoplasm of prostate
CPT/HCPCS: 36415; 80053; 83036; 84153; 85025

== ENCOUNTER 2023-07-31 10:30 | Day surgery (SDC) | payer OTHER, SELFPAY ==
[2023-07-31 10:38] VITALS: BMI 36.2
--- NOTE | 2023-07-31 11:16 | PC.NURSE ---
dr. orr aware that patient checked poc at home and was 215. patient states he gave himself Novolog 40 units at 1000 due to being nervous of high sugar. poc here at 1100 was 168. will re-assess again prior to going into procedure room per dr. orr. director organizational Joann [place] aware that patient stated that he is taking hospital transportation to [facility] and taking bus to home in [place] and she has stated that this is okay per her and that patient will remain longer in pacu to recover. report will be given to pacu nurse regarding this approval and length of extra time per joann. dr. herron aware of the above and that also patient has leg wound to lower left leg that is wrapped and he cares for at home. patient states that he has been to wound clinic before due to open leg areas. dr. herron to assess and speak with patient. patient educated regarding no driving for 24 hours after anesthesia and the need for a ride with family/friend post anesthesia for future appts.
[2023-07-31 11:20] LABS: Glucose, Whole Blood 168 mg/dL (60-115)
[2023-07-31] MEDS: Lactated Ringers 1,000 ML 100 ML IVCONT (11:21)
[2023-07-31 11:35] VITALS: BP 178/75; PULSE 88; RESP 18; TEMP 36.6; O2SAT 98
--- NOTE | 2023-07-31 11:35 | P.CONAN_ITS ---
Documented by User: Jessica Flynn NP 07/27/23 11:19 HPI - Anesthesia Eval Consult details Narrative: 63yo M for Colonoscopy PMFSH Active Problems Active Problems: All Active Problems (Updated 07/27/23 @ 08:41 by Chloe Yates RN) Carpal tunnel syndrome of right wrist (Acute) Carpal tunnel syndrome of left wrist (Acute) Cubital tunnel syndrome on right (Acute) Cubital tunnel syndrome on left (Acute) Dyspnea on exertion (Acute) Right hand weakness (Acute) Hand weakness (Acute) Closed fracture of right thumb (Acute) PAT (obstructive sleep apnea) (Acute) Obesity (BMI 30-39.9) (Acute) Past Medical History Medical History Closed fracture of right thumb Diabetes mellitus Dyspnea on exertion Hand weakness Hyperlipidemia Hypertension Neuropathy Obesity (BMI 30-39.9) PAT (obstructive sleep apnea) Restless leg syndrome Retinopathy Right hand weakness Venous stasis Surgical History Surgical History History of carpal tunnel surgery of left wrist Hx of colonoscopy Hx of foot surgery Social History Social History Patient Tobacco Use Status: Never used Tobacco Are you DNR?: No Advance Directives: No Advance Directives Information Provided: Yes Nutrition Risks: No Nutritional Risk Current occupation: Right [employer] Meds Allergies Allergy/AdvReac Type Severity Reaction Status Date / Time pollen extracts [POLLEN] Allergy Unknown WATERY Verified 07/31/23 10:59 EYES/SNEEZING Home Medications Medication Instructions Recorded Confirmed Last Taken Type insulin glargine 100 unit/mL 90 unit subcut BID 09/29/20 07/31/23 Unknown History subcutaneous solution (Lantus U-100 Insulin) latanoprost 0.005 % eye drops 1 drp ophthalmic (eye) DAILY 09/29/20 07/31/23 Unknown History fenofibrate 160 mg tablet 160 mg PO DAILY 11/25/20 07/31/23 Unknown History lisinopril 20 mg tablet 20 mg PO BID 11/25/20 07/31/23 07/31/23 History omeprazole 20 mg capsule,delayed 20 mg PO DAILY 11/25/20 07/31/23 Unknown History release insulin syringe-needle U-100 1 mL #10 ea 04/05/21 Unknown History 29 gauge x 1/2 atorvastatin 10 mg tablet 10 mg PO DAILY 04/10/23 07/31/23 Unknown History aspirin 81 mg tablet,delayed 81 mg PO DAILY 07/27/23 07/27/23 Unknown History release insulin aspart U-100 100 unit/mL 50 - 100 unit subcut TID 07/31/23 07/31/23 Unk nown History subcutaneous solution (Novolog U-100 Insulin aspart) Exam Exam Date and Time: July 27, 2023 111 Pertinent Lab Results Pertinent Lab Results: Laboratory Tests 05/10/23 05/10/23 10:46 10:46 WBC 4.4 L Hgb 13.2 L Hct 38.6 L Plt Count 173 Sodium 141 Potassium 4.4 Chloride 105 Carbon Dioxide 28 BUN 13 Creatinine 0.97 Assessment and Plan Assessment Anesthesia Assessment: Chart Reviewed Documented by User: Chloe Hall DO 07/31/23 11:40 [facility] Past Medical History Medical History Closed fracture of right thumb Diabetes mellitus Dyspnea on exertion Hand weakness Hyperlipidemia Hypertension Neuropathy Obesity (BMI 30-39.9) PAT (obstructive sleep apnea) Restless leg syndrome Retinopathy Right hand weakness Venous stasis Family History Family history of problems with anesthesia: No Surgical History Surgical History History of carpal tunnel surgery of left wrist Hx of colonoscopy Hx of foot surgery History of Problems with Anesthesia: No Social History Social History Patient Tobacco Use Status: Never used Tobacco Are you DNR?: No Advance Directives: No Advance Directives Information Provided: Yes Nutrition Risks: No Nutritional Risk Current occupation: Right Handed Meds Allergies Allergy/AdvReac Type Severity Reaction Status Date / Time pollen extracts [POLLEN] Allergy Unknown WATERY Verified 07/31/23 10:59 EYES/SNEEZING Home Medications Medication Instructions Recorded Confirmed Last Taken Type insulin glargine 100 unit/mL 90 unit subcut BID 09/29/20 07/31/23 Unknown History subcutaneous solution (Lantus U-100 Insulin) latanoprost 0.005 % eye drops 1 drp ophthalmic (eye) DAILY 09/29/20 07/31/23 Unknown History fenofibrate 160 mg tablet 160 mg PO DAILY 11/25/20 07/31/23 Unknown History lisinopril 20 mg tablet 20 mg PO BID 11/25/20 07/31/23 07/31/23 History omeprazole 20 mg capsule,delayed 20 mg PO DAILY 11/25/20 07/31/23 Unknown History release insulin syringe-needle U-100 1 mL #10 ea 04/05/21 Unknown History 29 gauge x 1/2 atorvastatin 10 mg tablet 10 mg PO DAILY 04/10/23 07/31/23 Unknown History aspirin 81 mg tablet,delayed 81 mg PO DAILY 07/27/23 07/27/23 Unknown History release insulin aspart U-100 100 unit/mL 50 - 100 unit subcut TID 07/31/23 07/31/23 Unknown History subcutaneous solution (Novolog U-100 Insulin aspart) Exam Exam Date and Time: July 27, 2023 1135 Height,Weight and Vital Signs: Height 6 ft 2 in Weight 127.913 kg Vital Signs Temperature 97.9 F 07/31/23 11:35 Pulse Rate 88 07/31/23 11:35 Respiratory Rate 18 07/31/23 11:35 Blood Pressure 178/75 H 07/31/23 11:35 Pulse Oximetry 98 07/31/23 11:35 Oxygen Delivery Method Room Air 07/31/23 11:35 Temperature 97.9 F 07/31/23 11:35 Pulse Rate 88 07/31/23 11:35 Respiratory Rate 18 07/31/23 11:35 Blood Pressure 178/75 H 07/31/23 11:35 Pulse Oximetry 98 07/31/23 11:35 Oxygen Delivery Method Room Air 07/31/23 11:35 Airway Mallampati Class: III TM Dist: <=3cm Neck ROM: Full Loose/Missing/Broken Teeth: No Heart: S1S2 Lungs: CTAB Assessment and Plan Assessment Anesthesia Assessment: Anesthesia Plan Discussed and Chart Reviewed Final Anesthetic Review Family History of Problems with Anesthesia: No History of Problems with Anesthesia: No NPO: Yes ASA Class: III Final Preanesthetic Review: No Changes in Pt Med Stat, Meds/Allgs Chart Reviewed, Consent Obtained/Reviewed and Anes Risks/Benef Reviewed Patient Risk: Intermediate Procedure Risk: Low Anesthetic Plan Anesthetic Plan: MAC: and Agree w/ Assess. and Plan Disposition: Standard PACU
--- NOTE | 2023-07-31 11:47 | PC.NURSE ---
dr. herron educated patient regarding leg wounds and f/u with pcp regarding care.
--- NOTE | 2023-07-31 11:49 | MHC.SHP ---
Pre-Procedural Eval Section A Date of Service: 07/31/23 Section B Chief Complaint: Encounter for screening for malignant neoplasm Details of Present Illness: see H*P no changes Relevant Family History (Specify if Yes): No Relevant Social History: None Present Medications: see Short Stay Collaborative assessment Medical History: No relevant PMH History of Previous Operations: No relevant previous surgery Allergies: Allergies Allergy/AdvReac Type Severity Reaction Status Date / Time pollen extracts [POLLEN] Allergy Unknown WATERY Verified 07/31/23 10:59 EYES/SNEEZING Review of Systems Sugical H&P ROS: Negative: Constitution, Cardiovascular, Respiratory, Neurological, Psychiatric, Hem-Onc, Allergic/Immunologic, Gastrointestinal, Genitourinary, Musculoskeletal, Integumentary, Endocrine and Eyes/Ears/Nose/Throat Exam Surgical H&P Exam: Normal: HEENT, Normal: Heart, Normal: Lungs, Normal: Extremities, Normal: Abdomen, Normal: Skin and Normal: Neurological Plan Diagnosis/Plan: Unchanged I have reviewed the history and physical and performed a pertinent physical examination on my patient. No changes have occurred unless specified. Time Spent With Patient Time: Total time managing care of this patient today ____ minutes.
[2023-07-31 11:52] LABS: Glucose, Whole Blood 153 mg/dL (60-115)
[2023-07-31 11:53] VITALS: BP 147/67
--- NOTE | 2023-07-31 11:53 | PC.NURSE ---
poc checked prior to patient going into procedure room per dr. vásquez result was 153.
--- NOTE | 2023-07-31 12:31 | P.BOP_ITS ---
Brief Operative Note Date of Service: 07/31/23 Pre-op diagnosis: screening Post-op diagnosis: same Procedure: colonoscopy Surgeon: Hitesh Sauer Anesthesia: MAC Was an Quality Control Tech Raw Materials used for this Procedure?: No Estimated blood loss (mL): 2 Pathology: other Condition: stable Disposition: PACU
[2023-07-31 12:34] VITALS: BP 137/55; PULSE 84; RESP 16; TEMP 36.5; O2SAT 97
[2023-07-31 12:49] VITALS: BP 132/66; PULSE 80; RESP 16; TEMP 36.5; O2SAT 95
--- NOTE | 2023-07-31 13:30 | PC.NURSE ---
PATIENT WAS GIVEN A VOUCHER FOR A SHUTTLE RIDE TO THE [facility]. PT NOW REFUSES TO TAKE THE SHUTTLE HOME AND STATES HE WILL DRIVE HOME. PER LYNNE NOTIFIED AND PATIENT SIGNED AN AMA FORM. PT LEFT. TWO RN'S TRIED TO CONVINCE PATIENT TO DO THE RIGHT THING.
--- NOTE | 2023-07-31 15:05 | PC.NURSE ---
Pt called at 1505-confirmed that patient made it home safely and without incident. Pt encouraged to notify medical staff prior to coming to the hospital that he has transportation issues so that he can be assisted with making arrangements with hospital transport if his area of [place] is serviced. Pt verbalizes agreement with this plan.
--- NOTE | 2023-07-31 16:45 | OP_ITS ---
DATE OF SERVICE: 07/31/2023 SURGEON: Hitesh Sauer MD INDICATIONS: Colon cancer screening. PREOPERATIVE DIAGNOSIS: POSTOPERATIVE DIAGNOSIS: PROCEDURE PERFORMED: Colonoscopy to the terminal ileum with snare polypectomy and biopsy. ESTIMATED BLOOD LOSS: COMPLICATIONS: ANESTHESIA: Monitored anesthesia care. ASSISTANTS: SPECIMENS: DESCRIPTION OF PROCEDURE: A history and physical was performed. The risks and benefits of the procedure were explained to the patient. Informed consent was obtained. The patient was placed in the left lateral decubitus position. A digital rectal exam was performed and was found to be normal. The Olympus pediatric video colonoscope was introduced into the rectum and advanced to the cecum. The cecum was identified by transillumination, palpation, and identification of the ileocecal valve. Abdominal wall pressure was used to assist in advancement of the scope due to looping in the sigmoid. Examination was performed. The scope was removed. He tolerated the procedure well and was taken to the recovery area in stable condition. FINDINGS: The terminal ileum was examined and appeared normal. The visualized colonic mucosa was normal. Some parts of the colon including the cecum, descending colon, and sigmoid were not well seen due to retained liquid stool coating the mucosa, which was washed and suctioned as best possible. Four polyps were removed. All were less than 10 mm and removed with a combination of snare polypectomy and biopsy. One was located at the hepatic flexure, 2 at 80 cm and 1 at 40 cm. Retroflexed examination showed internal hemorrhoids. IMPRESSION: Colon polyps. RECOMMENDATION: Follow up the biopsy results. MD PAMELA Siu/MODL / [id number] MTDD
== END 2023-07-31 13:32 | disposition home or self-care (01) ==
PROVIDERS: PCP Internal Medicine; Visit Provider Internal Medicine Gastroenterology
PROC: 0DJD8ZZ Inspection of Lower Intestinal Tract, Via Natural or Artificial Opening Endoscopic (ICD-10-PCS; CPT 45378; principal; 2023-07-31 11:50)
DX: Z12.11 Encounter for screening for malignant neoplasm of colon (principal); D12.4 Benign neoplasm of descending colon; D12.3 Benign neoplasm of transverse colon; K64.8 Other hemorrhoids; E11.9 Type 2 diabetes mellitus without complications; I10 Essential (primary) hypertension; E78.5 Hyperlipidemia, unspecified; E66.9 Obesity, unspecified; Z68.36 Body mass index [BMI] 36.0-36.9, adult; G47.33 Obstructive sleep apnea (adult) (pediatric); Z99.89 Dependence on other enabling machines and devices; Z79.82 Long term (current) use of aspirin; Z79.899 Other long term (current) drug therapy; Z79.4 Long term (current) use of insulin
CPT/HCPCS: 45385; 45380; 82947; 88305

== ENCOUNTER 2023-08-21 11:16 | Outpatient (AMB) | payer OTHER, SELFPAY ==
--- NOTE | 2023-08-21 11:28 | MHC.OFFVIS ---
Intake Vital Signs 08/21/23 11:29 Height 6 ft 2 in Weight 285 lb BMI 36.6 BP 150/70 H Blood Pressure Location Lt brachial Position Sitting Pulse 78 Pulse Source Pulse Oximeter Pulse Oximetry (%) 96 Oxygen Delivery Method Room Air Intake Visit Reasons: Obstructive sleep apnea follow-up Intake Note: pt is here for follow up and states he is using cpap and everything is going okay. pt has had his machine for 5 years and would like a replacement machine sent to [facility] Accredited Pharmacy Technician Required: No Allergies pollen extracts [POLLEN] Allergy (Unknown, Verified 08/21/23 11:44) WATERY EYES/SNEEZING Medication List - Last Reconciled 08/21/23 by Fernanda Almonte MD aspirin 81 mg PO DAILY atorvastatin 10 mg PO DAILY fenofibrate 160 mg PO DAILY gabapentin 300 mg PO TID insulin aspart U-100 (Novolog U-100 Insulin aspart) 50 - 100 units subcut TID insulin glargine (Lantus U-100 Insulin) 90 units subcut BID insulin syringe-needle U-100 As directed latanoprost 0.005% 1 drp ophthalmic (eye) DAILY lisinopril 20 mg PO BID omeprazole 20 mg PO DAILY Do you need a note to return to daycare/school/sports/work: No HPI Obstructive sleep apnea follow-up HPI Details Rohit hoyt, 63 years old gentleman grossly obese with diagnosis of obstructive sleep apnea, requiring use of BiPAP for many years. He is a regular user of BiPAP every night, . Comes after 6 months for follow-up Using his BiPAP every night and sleeps well. He has. No daytime sleepiness Has not been able. To lose much weight He is told by his DME supplier that he needs a new CPAP device [facility] Medical History Venous stasis Retinopathy Neuropathy Dyspnea on exertion Right hand weakness Hand weakness Closed fracture of right thumb PAT (obstructive sleep apnea) Obesity (BMI 30-39.9) Diabetes mellitus Restless leg syndrome Hyperlipidemia Hypertension Surgical History Hx of foot surgery History of carpal tunnel surgery of left wrist Hx of colonoscopy Social History Patient Tobacco Use Status: Never used Tobacco Current occupation: Right Handed Review of Systems Const All systems reviewed & are unremarkable except as noted in HPI and below Reports snoring (Controlled with CPAP) Eyes Reports no additional complaints ENT Reports no additional complaints Card Denies chest pain, Denies irregular heart rhythm, Denies leg edema and Reports dyspnea on exertion Resp Reports dyspnea on exertion and Reports snoring (Controlled with CPAP) GI Reports heartburn (Symptoms of GERD controlled with omeprazole) and Reports vomiting Reports other (BPH symptoms controlled with med) Musc Reports no additional complaints Skin/Breast Reports system reviewed and no additional complaints, except as documented Neuro Reports no additional complaints Psych Reports no additional complaints Physical Exam Vital Signs: Last Vital Signs Pulse 78 08/21/23 11:29 BP 150/70 H 08/21/23 11:29 Pulse Ox 96 08/21/23 11:29 Oxygen Delivery Method Room Air 08/21/23 11:29 BMI result Body Mass Index 36.6 Const Other: STU HAS A VERY ROUND FACE AND A SHORT NECK. General: healthy appearing (EXCEPT FOR BEING OVERWEIGHT), comfortable, no acute distress, alert and awake Orientation/consciousness: patient oriented x3 HEENT Head: Yes normal to inspection General nose exam: No nasal polyps present and No nasal discharge present Face and sinus: Yes sinuses nontender Mouth: oropharynx abnormals (Oropharynx is narrow and crowded, Mallampati class 4) Throat: Yes posterior oropharynx normal Eyes General: appearance normal, both eyes and all related structures Neck Neck: Yes normal visual inspection, Yes no lymphadenopathy, Yes trachea midline and Yes no JVD Thyroid: Thyroid normal Chest Chest palpation & inspection: normal inspection of the chest, normal palpation of entire chest wall and no tenderness Resp Other: Percussion note resonant, breath sounds slightly diminished over the bases. Both lungs are clear without any wheezes or rhonchi. Cardio Palpation: normal PMI Rate: regular rate Rhythm: regular rhythm Heart sounds: no gallops and no murmurs Peripheral pulses: Peripheral pulses 2+ throughout GI Palpation (GI): Soft to palpation, nontender, No hepatosplenomegaly present, no masses and Other GI palpation findings present (Abdomen moderately obese and protuberant) Auscultation: normal bowel sounds Back/Spine/Pelvis Thoracic/Lumbar Spine: thoracic and lumbar spine normal to inspection Skin General skin exam: no rashes or lesions noted Neuro General: patient oriented x3 and no focal motor deficits Cranial nerves: Yes CN's II-XII intact bilaterally Extrem General: Yes normal to inspection, Yes no clubbing, cyanosis or edema and Yes no calf tenderness Psych Appearance: grossly normal and well kempt Speech and movement: Normal speech and movement present Results Reviewed Results Reviewed: COMPLIANCE REPORT FOR THE LAST 30 NIGHTS IS REVIEWED. USAGE HAS BEEN 100%. AVERAGE USE PER NIGHT. 8 HOURS 13 MINUTES PRESSURE 19/15 CM. THERE IS NOT MUCH AIR LEAK. RESIDUAL AHI 4.3 Assessment & Plan Assessment & Plan (1) Obesity (BMI 30-39.9): Comment: HE IS GROSSLY OBESE AND HAS NOT BEEN ABLE TO LOSE MUCH WEIGHT. HE IS MADE AWARE OF THIS AND INSTRUCTED TO START WALKING MORE, CUT DOWN THE CALORIES INTAKE AND LOSE AT LEAST 10-15 LB OF WEIGHT Code(s): E66.9 - Obesity, unspecified (2) PAT (obstructive sleep apnea): Comment: HE IS VERY COMPLIANT AND BENEFITTING , HAS BEEN USING 30/30 NIGHTS, 100%, AND AVERAGE USE PER NIGHT 8 HOURS 13 MINUTES WHICH IS EXCELLENT. NEEDS REPLACEMENT FOR HIS CPAP DEVICE IT IS MORE THAN 5 YEARS OLD. ORDER FOR THE REPLACEMENT IS BEING SENT. FULLFACE MASK,BI-LEVEL PRESSURE SETTING 19/15 CM. Code(s): G47.33 - Obstructive sleep apnea (adult) (pediatric) Coding Level of Care Code Est Pt Level 3 (48290) Diagnoses Obesity (BMI 30-39.9) E66.9 PAT (obstructive sleep apnea) G47.33
[2023-08-21 11:29] VITALS: BP 150/70; PULSE 78; O2SAT 96; BMI 36.6
== END 2023-08-21 11:51 | disposition home or self-care (01) ==
PROVIDERS: PCP Internal Medicine Medical Oncology; Visit Provider Internal Medicine
DX: E66.9 Obesity, unspecified (principal); G47.33 Obstructive sleep apnea (adult) (pediatric)
CPT/HCPCS: 99213

== ENCOUNTER → 2023-08-21 11:16 | Outpatient (BNVA) | payer OTHER, SELFPAY | PROVIDERS: Visit Provider Internal Medicine | DX: G47.33 Obstructive sleep apnea (adult) (pediatric) (principal); E66.9 Obesity, unspecified; Z68.36 Body mass index [BMI] 36.0-36.9, adult | CPT/HCPCS: 99212 ==

== ENCOUNTER 2023-08-24 10:52 | Outpatient (REF) | payer OTHER, SELFPAY ==
[2023-08-24 11:14] LABS: MANUAL DIFF FLAG NO
[2023-08-24 12:14] LABS: Basophils Percent Auto 0.6 % (0-2); Eosinophils Absolute Auto 0.1 X10*3/uL (0.0-0.4); Eosinophils Percent Auto 2.2 % (0-4); Hematocrit 41.8 % (42.0-52.0); Imm Gran Abs Auto 0.02 X10*3/uL (0.00-0.03); Imm Gran Pct Auto 0.4 % (0.0-0.4); Lymphocytes Absolute Auto 1.1 X10*3/uL (1.2-4.9); Lymphocytes Percent Auto 20.4 % (20-40); Mean Corpuscular HGB Conc 33.5 g/dl (31.0-36.0); Mean Corpuscular Hemoglobin 28.5 pg (27.0-33.0); Mean Platelet Volume 10.5 fL (9.4-12.4); Monocytes Absolute Auto 0.4 X10*3/uL (0.1-1.2); Monocytes Percent Auto 7.9 % (2-11); Neutrophils Absolute Auto 3.7 x10*3/uL (2.0-8.3); Neutrophils Percent Auto 68.5 % (45-73); Platelet Count 168 X10*3/uL (160-400); Red Blood Count 4.92 X10*6/uL (4.60-5.80); Red Cell Distribution Width 13.5 % (11.0-16.0); White Blood Count 5.4 X10*3/uL (4.8-10.8)
[2023-08-24 12:28] LABS: Estimated Average Glucose 137 mg/dL; Hemoglobin A1c % 6.4 % (<6.0)
[2023-08-24 12:39] LABS: Alanine Aminotransferase 42 U/L (0-40); Albumin Level 4.2 g/dL (3.5-5.0); Alkaline Phosphatase 79 U/L (39-117); Anion Gap 15 (12-20); Aspartate Amino Transferase 36 U/L (5-37); Bilirubin Total 0.6 mg/dL (0.0-1.0); Blood Urea Nitrogen 17 mg/dL (9-16); Calcium 9.6 mg/dL (8.4-10.2); Carbon Dioxide 26 mmol/L (22-29); Chloride 104 mmol/L (96-108); Cholesterol 87 mg/dL (<200); Estimated Glomerular Filt Rate > 60; Glucose Fasting 118 mg/dL (60-99); HDL Cholesterol 24 mg/dL (>40); LDL Cholesterol Calculated 22 mg/dL (<100); Potassium 4.4 mmol/L (3.3-5.1); Sodium 141 mmol/L (135-145); Total Protein 7.2 g/dL (6.5-8.0); Triglycerides 206 mg/dL (<150)
[2023-08-24 14:17] LABS: Microalbum/Creatinine Ratio Ur 284.6 ug/mg cr (<30)
== END 2023-08-24 10:53 | disposition home or self-care (01) ==
LOC: HO.LAB 10:52
PROVIDERS: PCP Internal Medicine Medical Oncology; Visit Provider Internal Medicine Medical Oncology
DX: I10 Essential (primary) hypertension (principal); E78.5 Hyperlipidemia, unspecified; E11.40 Type 2 diabetes mellitus with diabetic neuropathy, unspecified
CPT/HCPCS: 36415; 80053; 80061; 82043; 82570; 83036; 85025

== ENCOUNTER 2023-09-15 15:39 | Outpatient (REF) | payer OTHER, SELFPAY ==
--- NOTE | ~2023-09-15 | MR_ITS ---
EXAMINATION: MR LUMBAR SPINE WITHOUT CONTRAST CLINICAL INFORMATION: Lower back pain, leg weakness COMPARISON: MRI lumbar spine 09/26/2019 TECHNIQUE: MRI of the lumbar spine was obtained using routine sequences without contrast. FINDINGS: Normal lumbar lordosis is preserved. Redemonstrated grade 1 retrolisthesis at L3-L4 and L5-S1. Vertebral body heights are maintained. There is no suspicious osseous lesion. Multilevel disc desiccation with mild multilevel disc height loss, most pronounced at L5-S1. Increased type I Modic endplate changes on the right at L5-S1 and new stress-related edema within the right L5 pedicle. Multilevel anterior osteophytic spurring is seen. Level by level detail as follows: L1-L2: Mild bilateral facet arthrosis. No spinal canal or neural foraminal stenosis. L2-L3: Annular disc bulge with new right foraminal/lateral disc protrusion and mild bilateral facet arthrosis. Minimal spinal canal narrowing and abutment of the traversing right greater than left L3 nerve roots. No significant neural foraminal stenosis. L3-L4: Annular disc bulge with decreased size of the inferiorly migrated paracentral disc extrusion, paracentral annular fissure, and moderate bilateral facet arthrosis with ligamentum flavum thickening. Decreased though persistent moderate to severe spinal canal and subarticular zone narrowing with persistent mass effect along the traversing L4 nerve roots. Unchanged mild bilateral neural foraminal stenosis with mass effect along the extraforaminal right and possibly also left L3 nerve roots. L4-L5: Annular disc bulge with redemonstrated right paracentral annular fissure, broad-based paracentral disc protrusion, and moderate to advanced bilateral facet arthrosis with ligamentum flavum thickening. Stable moderate spinal canal and subarticular zone narrowing with impression upon the traversing bilateral L5 nerve roots. Unchanged mild bilateral neural foraminal stenosis. L5-S1: Annular disc bulge with increased size of inferiorly migrated broad-based paracentral/subarticular to lateral recess disc extrusion eccentric to the right. Moderate bilateral facet arthrosis. Increased mild right eccentric spinal canal stenosis and right subarticular zone narrowing with compression of the traversing right S1 nerve root. There is also increased encroachment/abutment of the traversing left S1 nerve root. Unchanged moderate bilateral neural foraminal stenosis with impingement upon the exiting L5 nerve roots. The conus medullaris terminates at the inferior L1 level. The distal spinal cord is normal in appearance. No epidural fluid collection, hematoma, or mass. No significant abnormalities of the paraspinal musculature. Redemonstrated multiple nonpathologic size criteria retroperitoneal lymph nodes, nonspecific. The abdominal aorta is of normal contour and caliber. MR/MR lumbar spine wo con IMPRESSION: 1. At L5-S1, increased size of inferiorly migrated right paracentral/subarticular to lateral recess disc extrusion contributing to severe right subarticular zone narrowing compressing the traversing right S1 nerve root. Increased encroachment upon/abutment of the traversing left S1 nerve root at this level. 2. At L3-L4, decreased inferiorly migrated paracentral disc extrusion that results in decreased though persistent moderate to severe spinal canal and subarticular zone narrowing with persistent mass effect along the traversing L4 nerve roots. Unchanged mild bilateral neural foraminal stenosis with mass effect along the extraforaminal right and possibly also left L3 nerve roots. 3. At L2-L3, there is a new right foraminal/lateral disc protrusion and a background of annular disc bulge abuts the traversing right greater than left L3 nerve roots. 4. Stable additional level by level as above, notably at L4-L5 where there is moderate spinal canal and subarticular zone narrowing and impression upon the traversing bilateral L5 nerve roots.
== END 2023-09-15 15:40 | disposition home or self-care (01) ==
LOC: HO.MRI 15:39
PROVIDERS: PCP Internal Medicine Medical Oncology; Visit Provider Internal Medicine Medical Oncology
DX: M48.00 Spinal stenosis, site unspecified (principal); M54.9 Dorsalgia, unspecified
CPT/HCPCS: 72148

== ENCOUNTER 2023-10-25 10:47 | Outpatient (REF) | payer OTHER, SELFPAY ==
[2023-10-25 11:08] LABS: MANUAL DIFF FLAG NO
[2023-10-25 12:18] LABS: Estimated Average Glucose 131 mg/dL; Hemoglobin A1c % 6.2 % (<6.0)
[2023-10-25 12:25] LABS: Basophils Absolute Auto 0.1 X10*3/uL (0.0-0.2); Basophils Percent Auto 1.1 % (0-2); Eosinophils Absolute Auto 0.2 X10*3/uL (0.0-0.4); Eosinophils Percent Auto 3.5 % (0-4); Hematocrit 41.4 % (42.0-52.0); Hemoglobin 14.1 g/dl (14.0-18.0); Imm Gran Abs Auto 0.01 X10*3/uL (0.00-0.03); Imm Gran Pct Auto 0.2 % (0.0-0.4); Lymphocytes Absolute Auto 1.1 X10*3/uL (1.2-4.9); Lymphocytes Percent Auto 25.1 % (20-40); Mean Corpuscular HGB Conc 34.1 g/dl (31.0-36.0); Mean Corpuscular Hemoglobin 29.4 pg (27.0-33.0); Mean Corpuscular Volume 86.4 fL (80.0-98.0); Mean Platelet Volume 10.5 fL (9.4-12.4); Monocytes Absolute Auto 0.3 X10*3/uL (0.1-1.2); Monocytes Percent Auto 6.2 % (2-11); Neutrophils Absolute Auto 2.9 x10*3/uL (2.0-8.3); Neutrophils Percent Auto 63.9 % (45-73); Platelet Count 167 X10*3/uL (160-400); Red Blood Count 4.79 X10*6/uL (4.60-5.80); White Blood Count 4.5 X10*3/uL (4.8-10.8)
[2023-10-25 12:59] LABS: Alanine Aminotransferase 64 U/L (0-40); Albumin Level 4.2 g/dL (3.5-5.0); Alkaline Phosphatase 77 U/L (39-117); Aspartate Amino Transferase 48 U/L (5-37); Bilirubin Total 0.4 mg/dL (0.0-1.0); Blood Urea Nitrogen 13 mg/dL (9-16); Calcium 9.4 mg/dL (8.4-10.2); Cholesterol 104 mg/dL (<200); Estimated Glomerular Filt Rate > 60; Glucose Fasting 138 mg/dL (60-99); HDL Cholesterol 23 mg/dL (>40); LDL Cholesterol Calculated 17 mg/dL (<100); Total Protein 7.4 g/dL (6.5-8.0); Triglycerides 324 mg/dL (<150)
[2023-10-25 13:06] LABS: Anion Gap 12 (12-20); Carbon Dioxide 28 mmol/L (22-29); Chloride 102 mmol/L (96-108); Potassium 3.7 mmol/L (3.3-5.1); Sodium 138 mmol/L (135-145)
[2023-10-25 13:08] LABS: Creatinine Urine 51.79 mg/dL; Microalbum/Creatinine Ratio Ur 266.4 ug/mg cr (<30)
== END 2023-10-25 10:48 | disposition home or self-care (01) ==
LOC: HO.LAB 10:47
PROVIDERS: PCP Internal Medicine Medical Oncology; Visit Provider Internal Medicine Medical Oncology
DX: I10 Essential (primary) hypertension (principal); E66.9 Obesity, unspecified; E11.40 Type 2 diabetes mellitus with diabetic neuropathy, unspecified
CPT/HCPCS: 36415; 80053; 80061; 82043; 82570; 83036; 85025

== ENCOUNTER 2023-11-08 13:23 | Outpatient (AMB) | payer OTHER, SELFPAY ==
--- NOTE | 2023-11-08 13:58 | A.OFFVIS_ITS ---
Intake Intake Visit Reasons: Lumbar radiculopathy Allergies pollen extracts [POLLEN] Allergy (Unknown, Verified 08/21/23 11:44) WATERY EYES/SNEEZING [facility] Medical History Venous stasis Retinopathy Neuropathy Dyspnea on exertion Right hand weakness Hand weakness Closed fracture of right thumb PAT (obstructive sleep apnea) Obesity (BMI 30-39.9) Diabetes mellitus Restless leg syndrome Hyperlipidemia Hypertension Surgical History Hx of foot surgery History of carpal tunnel surgery of left wrist Hx of colonoscopy Social History Patient Tobacco Use Status: Never used Tobacco Current occupation: Right Handed Assessment & Plan Assessment & Plan (1) Lumbar stenosis: Code(s): M48.061 - Spinal stenosis, lumbar region without neurogenic claudication Plan Dear Dr Reich, Thank you for referring Mr Mena to our office today. He is a 63-year-old gentleman with a multiyear history of back pain and progressive bilateral leg pain, right greater than left. The symptoms encompass his whole leg on both side. Primarily worse when he standing and walking and gets better when he sits. It does not completely go away when he sits down however. He has tried gabapentin and Tylenol which seemed to help. It does affect his daily walking distances but the pain is not disabling to degree worse keeping from from doing activities that he enjoys. He is still able to walk the mall. He has not yet done any dedicated conservative management. PMH: He is a diabetic with his last A1c at 6.2, history of GERD, sleep apnea, peripheral neuropathy, carpal tunnel release, history of osteomyelitis on his big toe on the left side which healed with antibiotics, right shoulder surgery. Denies any issues with heart attacks, strokes, kidney disorders. Social hx: He does not smoke, drink or use any marijuana or recreational drugs. Medications: Fenofibrate, omeprazole, eye drops, lisinopril, gabapentin, NovoLog, Humalog, atorvastatin Allergies: None Physical exam: Morbidly obese gentleman, no acute distress, BMI 36, he has full strength of bilateral lower extremities with absent reflexes bilaterally in the lower extremities. Normal gait. Imaging review: Lumbar MRI done in August 2023 at [facility] reveals multilevel degenerative disc disease with moderate to severe stenosis at L3-4, moderate stenosis at L4-5 and a right-sided disc herniation which appears chronic at L5- S1 causing compression of the right S1 nerve root. Impression: 63-year-old gentleman presents with chronic low back pain with bilateral leg pain, claudicating in nature. Although he does have chronic back pain, the leg pain and discomfort with walking is really the main reason he is here today. He does have stenosis at multiple levels including L3-4 and L4-5 and a disc herniation on the right at L5-S1. He has not done any conservative treatment yet in terms of physical therapy or cortisone injections. It is not been my experience that these are very helpful in this kind of situation. We reviewed his imaging at length together, and discussed the natural history of degenerative disc disease and stenosis. If we were to consider offering him surgery, in order to treat the leg pain it would be a simple decompression at L3-4, L4-5 and possibly L5-S1. At this point, his symptoms are not disabling in the sense that there are not altering his quality of life. We reviewed surgical indications for surgery and at this point, he does not feel that the pain is bad enough to justify an operation. This is certainly reasonable and I told him we would be happy to follow up with him in 3 months and we can reassess. If things get worse before then we would happy to see him back. Thank you for allowing us to care for your patient. The total time spent with this visit with this patient was 45 minutes reviewing history, physical exam, lumbar imaging review, and implementation of treatment plan or further diagnostic testing Mark Beard MD,PhD [facility] Coding Level of Care Code New Pt Level 4 (58214) Diagnoses Lumbar stenosis M48.061
== END 2023-11-08 14:10 | disposition home or self-care (01) ==
PROVIDERS: PCP Internal Medicine Medical Oncology; Referring Provider Internal Medicine Medical Oncology; Visit Provider Physician Assistant
DX: M48.061 Spinal stenosis, lumbar region without neurogenic claudication (principal)
CPT/HCPCS: 99204

== ENCOUNTER → 2023-11-08 13:23 | Outpatient (BNVA) | payer OTHER, SELFPAY | PROVIDERS: PCP Internal Medicine Medical Oncology; Visit Provider Physician Assistant | DX: M48.061 Spinal stenosis, lumbar region without neurogenic claudication (principal) | CPT/HCPCS: 99202 ==

== ENCOUNTER 2024-02-19 11:15 | Outpatient (AMB) | payer OTHER, SELFPAY ==
--- NOTE | 2024-02-19 11:26 | A.OFFVIS_ITS ---
Intake Vital Signs 02/19/24 11:28 Height 6 ft 2 in Weight 292 lb 1.8 oz BMI 37.5 BP 130/70 Blood Pressure Location Lt brachial Position Sitting Pulse 76 Pulse Source Pulse Oximeter Pulse Oximetry (%) 99 Oxygen Delivery Method Room Air Intake Visit Reasons: Obstructive sleep apnea follow-up Intake Note: pt is here for follow up and has a new cpap, and having some short of breath with exertion, but he is aware of his weight. 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: No Allergies pollen extracts [POLLEN] Allergy (Unknown, Verified 02/19/24 11:34) WATERY EYES/SNEEZING Medication List - Last Reconciled 02/19/24 by Fernanda Almonte MD aspirin 81 mg PO DAILY atorvastatin 10 mg PO DAILY fenofibrate 160 mg PO DAILY gabapentin 300 mg PO TID insulin aspart U-100 (Novolog U-100 Insulin aspart) 50 - 100 units subcut TID insulin glargine (Lantus U-100 Insulin) 90 units subcut BID insulin syringe-needle U-100 As directed latanoprost 0.005% 1 drp ophthalmic (eye) DAILY lisinopril 20 mg PO BID omeprazole 20 mg PO DAILY Do you need a note to return to daycare/school/sports/work: No HPI Obstructive sleep apnea follow-up HPI Details Stu is 63 years old gentleman with gross obesity, and round face, with diagnosis of obstructive sleep apnea. He is here for. 6 months follow-up He just had a new CPAP equipment, he has no issue with the new machine, Even the old machine he has been using every night and sleeps well at least for 8 hours per night. During the winter months he has been less than active and has put on about 5-6 lb of weight. He is somewhat out of shape and complains of getting more short of breath when he walks around. However he has no cough or wheezing. [facility] Medical History Venous stasis Retinopathy Neuropathy Dyspnea on exertion Right hand weakness Hand weakness Closed fracture of right thumb PAT (obstructive sleep apnea) Obesity (BMI 30-39.9) Diabetes mellitus Restless leg syndrome Hyperlipidemia Hypertension Surgical History Hx of foot surgery History of carpal tunnel surgery of left wrist Hx of colonoscopy Social History Patient Tobacco Use Status: Never used Tobacco Current occupation: Right Handed Review of Systems Const All systems reviewed & are unremarkable except as noted in HPI and below Reports snoring (Controlled with CPAP) Eyes Reports no additional complaints ENT Reports no additional complaints Card Denies chest pain, Denies irregular heart rhythm, Denies leg edema and Reports dyspnea on exertion Resp Reports dyspnea on exertion and Reports snoring (Controlled with CPAP) GI Reports heartburn (Symptoms of GERD controlled with omeprazole) and Reports vomiting Reports other (BPH symptoms controlled with med) Musc Reports no additional complaints Skin/Breast Reports system reviewed and no additional complaints, except as documented Neuro Reports no additional complaints Psych Reports no additional complaints Physical Exam Vital Signs: Last Vital Signs Pulse 76 02/19/24 11:28 BP 130/70 02/19/24 11:28 Pulse Ox 99 02/19/24 11:28 Oxygen Delivery Method Room Air 02/19/24 11:28 BMI result Body Mass Index 37.5 Const Other: STU HAS A VERY ROUND FACE AND A SHORT NECK. General: healthy appearing (EXCEPT FOR BEING OVERWEIGHT), comfortable, no acute distress, alert and awake Orientation/consciousness: patient oriented x3 HEENT Head: Yes normal to inspection General nose exam: No nasal polyps present and No nasal discharge present Face and sinus: Yes sinuses nontender Mouth: oropharynx abnormals (Oropharynx is narrow and crowded, Mallampati class 4) Throat: Yes posterior oropharynx normal Eyes General: appearance normal, both eyes and all related structures Neck Neck: Yes normal visual inspection, Yes no lymphadenopathy, Yes trachea midline and Yes no JVD Thyroid: Thyroid normal Chest Chest palpation & inspection: normal inspection of the chest, normal palpation of entire chest wall and no tenderness Resp Other: Percussion note resonant, breath sounds slightly diminished over the bases. Both lungs are clear without any wheezes or rhonchi. Cardio Palpation: normal PMI Rate: regular rate Rhythm: regular rhythm Heart sounds: no gallops and no murmurs Peripheral pulses: Peripheral pulses 2+ throughout GI Palpation (GI): Soft to palpation, nontender, No hepatosplenomegaly present, no masses and Other GI palpation findings present (Abdomen moderately obese and protuberant) Auscultation: normal bowel sounds Back/Spine/Pelvis Thoracic/Lumbar Spine: thoracic and lumbar spine normal to inspection Skin General skin exam: no rashes or lesions noted Neuro General: patient oriented x3 and no focal motor deficits Cranial nerves: Yes CN's II-XII intact bilaterally Extrem General: Yes normal to inspection, Yes no clubbing, cyanosis or edema and Yes no calf tenderness Psych Appearance: grossly normal and well kempt Speech and movement: Normal speech and movement present Results Reviewed Results Reviewed: Compliance report with his old CPAP device, from to 01/04 to 02/01 shows that he has used 30/30 nights with an average use it per night 8 hours 0 minute. No air leak and residual AHI 4.5. Compliance report with his new CPAP device starting on 01/20 to shows that he is using every night and average usage is 8 hours 7 minutes Again there is no air leak and residual AHI 3.1 which is even better than before Assessment & Plan Assessment & Plan (1) Obesity (BMI 30-39.9): Comment: HE IS GROSSLY OBESE AND HAS NOT BEEN ABLE TO LOSE MUCH WEIGHT. Code(s): E66.9 - Obesity, unspecified Plan: HE IS MADE AWARE OF THIS AND INSTRUCTED TO START WALKING MORE, CUT DOWN THE CALORIES INTAKE AND LOSE AT LEAST 10-15 LB OF WEIGHT (2) PAT (obstructive sleep apnea): Comment: He has known diagnosis of obstructive sleep apnea for the past many years. He is very compliant, using every night for an average of 8 hours per night. Code(s): G47.33 - Obstructive sleep apnea (adult) (pediatric) Plan: Advised to continue using bilevel CPAP device pressure setting 19/15 cm. Advised to try loosing weight (3) Dyspnea on exertion: Comment: THIS IS VERY NONSPECIFIC AND MILD . RELATED TO GROSS OBESITY, GENERAL DECONDITIONING, AND POSSIBLE MILD RESTRICTIVE PULM . DISORDER . ADVISED TO LOSE WEIGHT AND ALSO DO DEEP BREATHING EXERCISES 2 OR 3 TIMES A DAY. Code(s): R06.00 - Dyspnea, unspecified Plan: as above. Coding Level of Care Code Est Pt Level 3 (94248) Diagnoses Obesity (BMI 30-39.9) E66.9 PAT (obstructive sleep apnea) G47.33 Dyspnea on exertion R06.00
[2024-02-19 11:28] VITALS: BP 130/70; PULSE 76; O2SAT 99; BMI 37.5
== END 2024-02-19 11:39 | disposition home or self-care (01) ==
PROVIDERS: PCP Internal Medicine; Visit Provider Internal Medicine
DX: E66.9 Obesity, unspecified (principal); G47.33 Obstructive sleep apnea (adult) (pediatric); R06.00 Dyspnea, unspecified
CPT/HCPCS: 99213

== ENCOUNTER → 2024-02-19 11:15 | Outpatient (BNVA) | payer OTHER, SELFPAY | PROVIDERS: PCP Internal Medicine; Visit Provider Internal Medicine | DX: G47.33 Obstructive sleep apnea (adult) (pediatric) (principal); R06.00 Dyspnea, unspecified; E66.9 Obesity, unspecified | CPT/HCPCS: 99212 ==

== ENCOUNTER 2024-08-25 13:31 | Outpatient (AMB) | payer OTHER, SELFPAY ==
--- NOTE | 2024-08-25 13:40 | A.OFFVIS_ITS ---
Vital Signs 08/25/24 13:41 Height 6 ft 2 in Weight 286 lb 9.615 oz BMI 36.8 BP 130/70 Blood Pressure Location Lt brachial Position Sitting Pulse 67 Pulse Source Pulse Oximeter Pulse Oximetry (%) 96 Oxygen Delivery Method Room Air Intake Visit Reasons: Obstructive sleep apnea Intake Note: pt is here for follow up and states he doing well with bi-pap, but he did state he had covid again this past summer. 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 Guard Chief Required: No Allergies pollen extracts [POLLEN] Allergy (Unknown, Verified 08/25/24 13:50) WATERY EYES/SNEEZING Medication List - Last Reconciled 08/25/24 by Fernanda Almonte MD aspirin 81 mg PO DAILY atorvastatin 10 mg PO DAILY fenofibrate 160 mg PO DAILY gabapentin 300 mg PO TID PRN insulin aspart U-100 (Novolog U-100 Insulin aspart) 50 - 100 units subcut TID insulin glargine (Lantus U-100 Insulin) 90 units subcut BID insulin syringe-needle U-100 As directed latanoprost 0.005% 1 drp ophthalmic (eye) DAILY lisinopril 20 mg PO BID omeprazole 20 mg PO DAILY Do you need a note to return to daycare/school/sports/work: No HPI HPI Obstructive sleep apnea: Details: Stu is 64 years old gentleman grossly obese especially in the neck and had area, he is known to have obstructive sleep apnea and uses CPAP very regularly with good results. He does not have any asthma or COPD. Recently did suffered from COVID infection but mainly in the upper airways, and still has mild intermittent residual cough. Denies any wheezing attacks are any shortness of breath on exertion. Weight is down by a few lbs . [facility] Medical History Venous stasis Retinopathy Neuropathy Dyspnea on exertion Right hand weakness Hand weakness Closed fracture of right thumb PAT (obstructive sleep apnea) Obesity (BMI 30-39.9) Diabetes mellitus Restless leg syndrome Hyperlipidemia Hypertension Surgical History Hx of foot surgery History of carpal tunnel surgery of left wrist Hx of colonoscopy Social History Patient Tobacco Use Status: Never used Tobacco Current occupation: Right Handed Review of Systems Const All systems reviewed & are unremarkable except as noted in HPI and below Reports snoring (Controlled with CPAP) Eyes Reports no additional complaints ENT Reports no additional complaints Card Denies chest pain, Denies irregular heart rhythm, Denies leg edema and Reports dyspnea on exertion Resp Reports dyspnea on exertion and Reports snoring (Controlled with CPAP) GI Reports heartburn (Symptoms of GERD controlled with omeprazole) and Reports vomiting Reports other (BPH symptoms controlled with med) Musc Reports no additional complaints Skin/Breast Reports system reviewed and no additional complaints, except as documented Neuro Reports no additional complaints Psych Reports no additional complaints Physical Exam Vital Signs: Last Vital Signs Pulse 67 08/25/24 13:41 BP 130/70 08/25/24 13:41 Pulse Ox 96 08/25/24 13:41 Oxygen Delivery Method Room Air 08/25/24 13:41 BMI result Body Mass Index 36.8 Const Other: STU HAS A VERY ROUND FACE AND A SHORT NECK. General: healthy appearing (EXCEPT FOR BEING OVERWEIGHT), comfortable, no acute distress, alert and awake Orientation/consciousness: patient oriented x3 HEENT Head: Yes normal to inspection General nose exam: No nasal polyps present and No nasal discharge present Face and sinus: Yes sinuses nontender Mouth: oropharynx abnormals (Oropharynx is narrow and crowded, Mallampati class 4) Throat: Yes posterior oropharynx normal Eyes General: appearance normal, both eyes and all related structures Neck Neck: Yes normal visual inspection, Yes no lymphadenopathy, Yes trachea midline and Yes no JVD Thyroid: Thyroid normal Chest Chest palpation & inspection: normal inspection of the chest, normal palpation of entire chest wall and no tenderness Resp Other: Percussion note resonant, breath sounds slightly diminished over the bases. A few fine inspiratory crackles heard over the left base. Otherwise lungs are clear. Cardio Palpation: normal PMI Rate: regular rate Rhythm: regular rhythm Heart sounds: no gallops and no murmurs Peripheral pulses: Peripheral pulses 2+ throughout GI Palpation (GI): Soft to palpation, nontender, No hepatosplenomegaly present, no masses and Other GI palpation findings present (Abdomen moderately obese and protuberant) Auscultation: normal bowel sounds Back/Spine/Pelvis Thoracic/Lumbar Spine: thoracic and lumbar spine normal to inspection Skin General skin exam: no rashes or lesions noted Neuro General: patient oriented x3 and no focal motor deficits Cranial nerves: Yes CN's II-XII intact bilaterally Extrem General: Yes normal to inspection, Yes no clubbing, cyanosis or edema and Yes no calf tenderness Psych Appearance: grossly normal and well kempt Speech and movement: Normal speech and movement present Results Reviewed Results Reviewed: COMPLIANCE REPORT FOR THE LAST. 30 NIGHTS IS REVIEWED USED 30/30 NIGHTS, 100%. AVERAGE USE IT PER NIGHT 7 HOURS 34 MINUTES. PRESSURE SETTING. 19/15 CM NO SIGNIFICANT AIR LEAK. RESIDUAL AHI 3.2 Assessment & Plan Assessment & Plan (1) Obesity (BMI 30-39.9): Comment: HE IS GROSSLY OBESE. BMI=36.8 LOST 6 LB IN THE LAST 6 MONTHS. Code(s): E66.9 - Obesity, unspecified Category: Medical Plan: COMMENDED FOR LOSING WEIGHT EVEN THOUGH IT WAS MINIMAL. I STRESS THAT HE SHOULD WALK COUPLE MILES EVERY DAY AND TRY TO CUT DOWN ON DIETARY INTAKE. (2) PAT (obstructive sleep apnea): Comment: He has known diagnosis of obstructive sleep apnea for the past many years. He is very compliant, using every night for an average of 7- 8 hours per night. HE SLEEPS VERY WELL . Code(s): G47.33 - Obstructive sleep apnea (adult) (pediatric) Category: Medical Plan: COMMENDED FOR GOOD COMPLIANCE AND ADVISED TO CONTINUE USING BIPAP REGULARLY Medications: Changed From gabapentin 300 mg PO TID 90 caps 0RF To gabapentin 300 mg PO TID PRN Coding Level of Care Code Est Pt Level 3 (67012) Diagnoses Obesity (BMI 30-39.9) E66.9 PAT (obstructive sleep apnea) G47.33
[2024-08-25 13:41] VITALS: BP 130/70; PULSE 67; O2SAT 96; BMI 36.8
== END 2024-08-25 14:00 | disposition home or self-care (01) ==
PROVIDERS: PCP Internal Medicine; Visit Provider Internal Medicine
DX: E66.9 Obesity, unspecified (principal); G47.33 Obstructive sleep apnea (adult) (pediatric)
CPT/HCPCS: 99213

== ENCOUNTER → 2024-08-25 13:31 | Outpatient (BNVA) | payer OTHER, SELFPAY | PROVIDERS: PCP Internal Medicine; Visit Provider Internal Medicine | DX: G47.33 Obstructive sleep apnea (adult) (pediatric) (principal); E66.9 Obesity, unspecified; Z68.36 Body mass index [BMI] 36.0-36.9, adult | CPT/HCPCS: 99212 ==

== ENCOUNTER 2024-12-03 14:04 | Outpatient (AMB) | payer OTHER, SELFPAY ==
--- NOTE | 2024-12-03 14:08 | A.OFFVIS_ITS ---
Vital Signs 12/03/24 14:09 Height 6 ft 2 in Weight 281 lb 1.43 oz BMI 36.1 BP 150/82 H Blood Pressure Location Lt brachial Position Sitting Pulse 88 Pulse Source Pulse Oximeter Pulse Oximetry (%) 98 Oxygen Delivery Method Room Air Intake Visit Reasons: Obstructive sleep apnea Intake Note: pt is here for sick visit, went to urgent care, was told you have pneumonia both lungs. 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 Required: No Allergies pollen extracts [POLLEN] Allergy (Unknown, Verified 12/03/24 14:32) WATERY EYES/SNEEZING Medication List - Last Reconciled 12/03/24 by Fernanda Almonte MD aspirin 81 mg PO DAILY atorvastatin 10 mg PO DAILY fenofibrate 160 mg PO DAILY gabapentin 300 mg PO TID PRN insulin aspart U-100 (Novolog U-100 Insulin aspart) 50 - 100 units subcut TID insulin glargine (Lantus U-100 Insulin) 90 units subcut BID insulin syringe-needle U-100 As directed latanoprost 0.005% 1 drp ophthalmic (eye) DAILY lisinopril-hydrochlorothiazide 20-25 mg 1 tab PO BID omeprazole 20 mg PO DAILY Do you need a note to return to daycare/school/sports/work: No HPI HPI Obstructive sleep apnea: Details: Stu, 64 years old gentleman, is tall and obese, with rounded face and narrow upper airways. He is a case of obstructive sleep apnea which is being treated successfully with the CPAP. Stu is nonsmoker and does not have any underlying chronic respiratory disease. He was having nasal congestion cough and general weakness for about 1 week, And yesterday he went to urgent clinic of [facility]. He had testing for viral panel and COVID which was probably negative. He was told that he probably had infection in the sinuses. Also sent to [facility] for a chest x-ray. The treating physician called him at home indicating that he has bilateral pneumonia. Prescribed Augmentin 875 mg b.i.d. and also course of azithromycin. He has just taken these agents since yesterday. He is feeling better nasal congestion is much less, cough is also almost gone, However he was worried about pneumonia, and came to see me for good checkup. [facility] Medical History (Updated 12/03/24 @ 14:40 by Fernanda Almonte MD) Acute rhinosinusitis Venous stasis Retinopathy Neuropathy Dyspnea on exertion Right hand weakness Hand weakness Closed fracture of right thumb PAT (obstructive sleep apnea) Obesity (BMI 30-39.9) Diabetes mellitus Restless leg syndrome Hyperlipidemia Hypertension Surgical History Hx of foot surgery History of carpal tunnel surgery of left wrist Hx of colonoscopy Social History Patient Tobacco Use Status: Never used Tobacco Current occupation: Right Handed Review of Systems Const All systems reviewed & are unremarkable except as noted in HPI and below Reports snoring (Controlled with CPAP) Eyes Reports no additional complaints ENT Reports no additional complaints Card Denies chest pain, Denies irregular heart rhythm, Denies leg edema and Reports dyspnea on exertion Resp Reports dyspnea on exertion and Reports snoring (Controlled with CPAP) GI Reports heartburn (Symptoms of GERD controlled with omeprazole) and Reports vomiting Reports other (BPH symptoms controlled with med) Musc Reports no additional complaints Skin/Breast Reports system reviewed and no additional complaints, except as documented Neuro Reports no additional complaints Psych Reports no additional complaints Physical Exam Vital Signs: Last Vital Signs Pulse 88 12/03/24 14:09 BP 150/82 H 12/03/24 14:09 Pulse Ox 98 12/03/24 14:09 Oxygen Delivery Method Room Air 12/03/24 14:09 BMI result Body Mass Index 36.1 Const Other: STU HAS A VERY ROUND FACE AND A SHORT NECK. General: healthy appearing (EXCEPT FOR BEING OVERWEIGHT), comfortable, no acute distress, alert and awake Orientation/consciousness: patient oriented x3 HEENT Other: Throat is very clear and he has only mild nasal congestion . Head: Yes normal to inspection General nose exam: No nasal polyps present and No nasal discharge present Face and sinus: Yes sinuses nontender Mouth: oropharynx abnormals (Oropharynx is narrow and crowded, Mallampati class 4) Throat: Yes posterior oropharynx normal Eyes General: appearance normal, both eyes and all related structures Neck Neck: Yes normal visual inspection, Yes no lymphadenopathy, Yes trachea midline and Yes no JVD Thyroid: Thyroid normal Chest Chest palpation & inspection: normal inspection of the chest, normal palpation of entire chest wall and no tenderness Resp Other: Percussion note resonant, breath sounds slightly diminished over the bases. Both lungs are clear to auscultation. There are no crepitations wheezes or rhonchi. Cardio Palpation: normal PMI Rate: regular rate Rhythm: regular rhythm Heart sounds: no gallops and no murmurs Peripheral pulses: Peripheral pulses 2+ throughout GI Palpation (GI): Soft to palpation, nontender, No hepatosplenomegaly present, no masses and Other GI palpation findings present (Abdomen moderately obese and protuberant) Auscultation: normal bowel sounds Back/Spine/Pelvis Thoracic/Lumbar Spine: thoracic and lumbar spine normal to inspection Skin General skin exam: no rashes or lesions noted Neuro General: patient oriented x3 and no focal motor deficits Cranial nerves: Yes CN's II-XII intact bilaterally Extrem General: Yes normal to inspection, Yes no clubbing, cyanosis or edema and Yes no calf tenderness Psych Appearance: grossly normal and well kempt Speech and movement: Normal speech and movement present Results Reviewed Results Reviewed: The report of chest x-ray performed on 12/02/24 at [facility], indicates that there are no infiltrates, and no new change as compared to a chest x-ray on 08/19/2024. Assessment & Plan Assessment & Plan (1) Acute rhinosinusitis: Comment: He has had nonspecific upper respiratory infection most likely viral. He is prone to have recurrent rhinosinusitis. He is already much better and nasal congestion as well as cough is almost gone. * I reviewed the report of chest x-ray , from [facility], It is reported that there is no acute change, and definitely there is no evidence of pneumonia. Code(s): J01.90 - Acute sinusitis, unspecified Category: Medical Plan: Discussed with the patient, reassured, that he does not have pneumonia. Advised to continue taking Augmentin 875 b.i.d. for 1 week. Also advised that there is no need to take azithromycin anymore Coding Level of Care Code Est Pt Level 3 (49226) Diagnoses Acute rhinosinusitis J01.90
[2024-12-03 14:09] VITALS: BP 150/82; PULSE 88; O2SAT 98; BMI 36.1
== END 2024-12-03 14:31 | disposition home or self-care (01) ==
PROVIDERS: PCP Internal Medicine; Visit Provider Internal Medicine
DX: J01.90 Acute sinusitis, unspecified (principal)
CPT/HCPCS: 99213

== ENCOUNTER → 2024-12-03 14:04 | Outpatient (BNVA) | payer OTHER, SELFPAY | PROVIDERS: PCP Internal Medicine; Visit Provider Internal Medicine | DX: J01.90 Acute sinusitis, unspecified (principal); Z79.2 Long term (current) use of antibiotics | CPT/HCPCS: 99212 ==

== ENCOUNTER 2025-02-10 13:29 | Outpatient (AMB) | payer OTHER, SELFPAY ==
[2025-02-10 13:37] VITALS: BP 122/70; PULSE 74; O2SAT 98; BMI 37.1
--- NOTE | 2025-02-10 13:37 | MHC.OFFVIS ---
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 Allergies pollen extracts [POLLEN] Allergy (Unknown, Verified 02/10/25 13:48) WATERY EYES/SNEEZING Medication List - Last Reconciled 02/10/25 by Fernanda Almonte MD aspirin 81 mg PO DAILY atorvastatin 10 mg PO DAILY fenofibrate 160 mg PO DAILY gabapentin 300 mg PO TID PRN insulin aspart U-100 (Novolog U-100 Insulin aspart) 50 - 100 units subcut TID insulin glargine (Lantus U-100 Insulin) 90 units subcut BID insulin syringe-needle U-100 As directed latanoprost 0.005% 1 drp ophthalmic (eye) DAILY lisinopril-hydrochlorothiazide 20-25 mg 1 tab PO BID omeprazole 20 mg PO DAILY Do you need a note to return to daycare/school/sports/work: No HPI HPI brennen: Details: STU 64 YEARS OLD VERY PLEASANT GENTLEMAN IS GROSSLY OBESE, MORE SPECIFICALLY HE HAS A ROUND FACE AND A SHORT NECK , AND SEVERELY COMPROMISED OROPHARYNGEAL SPACE. HE HAS SEVERE OBSTRUCTIVE SLEEP APNEA, BEING TREATED WITH BILEVEL CPAP. HE USES VERY REGULARLY 100% OF THE TIME AND AVERAGE USAGE PER NIGHT IS 7-8 HOURS. HE SAY IS THAT HE SLEEPS GOOD WITH THE CPAP. HE IS NOT TIRED OR SLEEPY DURING THE DAY. THE ONLY PROBLEM IS THAT DURING THE WINTER MONTHS HE HAS PUT ON SOME WEIGHT AGAIN, INSTEAD OF LOSING. HE HAS NOT BEEN ABLE TO WALK MUCH. HE UNDERSTANDS ABOUT THE DIET BUT HAS NOT BEEN FOLLOWING IT STRICTLY. [facility] Medical History Acute rhinosinusitis Venous stasis Retinopathy Neuropathy Dyspnea on exertion Right hand weakness Hand weakness Closed fracture of right thumb BRENNEN (obstructive sleep apnea) Obesity (BMI 30-39.9) Diabetes mellitus Restless leg syndrome Hyperlipidemia Hypertension Surgical History Hx of foot surgery History of carpal tunnel surgery of left wrist Hx of colonoscopy Social History Patient Tobacco Use Status: Never used Tobacco Current occupation: Right Handed Review of Systems Const All systems reviewed & are unremarkable except as noted in HPI and below Reports snoring (Controlled with CPAP) Eyes Reports no additional complaints ENT Reports no additional complaints Card Denies chest pain, Denies irregular heart rhythm, Denies leg edema and Reports dyspnea on exertion Resp Reports dyspnea on exertion and Reports snoring (Controlled with CPAP) GI Reports heartburn (Symptoms of GERD controlled with omeprazole) and Reports vomiting Reports other (BPH symptoms controlled with med) Musc Reports no additional complaints Skin/Breast Reports system reviewed and no additional complaints, except as documented Neuro Reports no additional complaints Psych Reports no additional complaints Physical Exam Vital Signs: Last Vital Signs Pulse 74 02/10/25 13:37 BP 122/70 02/10/25 13:37 Pulse Ox 98 02/10/25 13:37 Oxygen Delivery Method Room Air 02/10/25 13:37 BMI result Body Mass Index 37.1 Const Other: STU HAS A VERY ROUND FACE AND A SHORT NECK. General: healthy appearing (EXCEPT FOR BEING OVERWEIGHT), comfortable, no acute distress, alert and awake Orientation/consciousness: patient oriented x3 HEENT Other: Throat is very clear and he has only mild nasal congestion . Head: Yes normal to inspection General nose exam: No nasal polyps present and No nasal discharge present Face and sinus: Yes sinuses nontender Mouth: oropharynx abnormals (Oropharynx is narrow and crowded, Mallampati class 4) Throat: Yes posterior oropharynx normal Eyes General: appearance normal, both eyes and all related structures Neck Neck: Yes normal visual inspection, Yes no lymphadenopathy, Yes trachea midline and Yes no JVD Thyroid: Thyroid normal Chest Chest palpation & inspection: normal inspection of the chest, normal palpation of entire chest wall and no tenderness Resp Other: Percussion note resonant, breath sounds slightly diminished over the bases. Both lungs are clear to auscultation. There are no crepitations wheezes or rhonchi. Cardio Palpation: normal PMI Rate: regular rate Rhythm: regular rhythm Heart sounds: no gallops and no murmurs Peripheral pulses: Peripheral pulses 2+ throughout GI Palpation (GI): Soft to palpation, nontender, No hepatosplenomegaly present, no masses and Other GI palpation findings present (Abdomen moderately obese and protuberant) Auscultation: normal bowel sounds Back/Spine/Pelvis Thoracic/Lumbar Spine: thoracic and lumbar spine normal to inspection Skin General skin exam: no rashes or lesions noted Neuro General: patient oriented x3 and no focal motor deficits Cranial nerves: Yes CN's II-XII intact bilaterally Extrem General: Yes normal to inspection, Yes no clubbing, cyanosis or edema and Yes no calf tenderness Psych Appearance: grossly normal and well kempt Speech and movement: Normal speech and movement present Results Reviewed Results Reviewed: COMPLIANCE REPORT FOR THE LAST 30 NIGHTS IS REVIEWED HIS USAGE IS 100% OF THE NIGHT AVERAGE USE IT PER NIGHT, 7 HOURS 56 MINUTES WHICH IS EXCELLENT HE HAS VERY LITTLE AIR LEAK. HIS RESIDUAL AHI IS 7 THIS TIME . WHICH I THINK IS BECAUSE OF HIS GAINING WEIGHT Assessment & Plan Assessment & Plan (1) Obesity (BMI 30-39.9): Comment: HE IS GROSSLY OBESE. BMI=37.1 GAINED 7 LBS . Code(s): E66.9 - Obesity, unspecified Category: Medical Plan: STU IS FULLY AWARE OF HIS WEIGHT AND ALSO UNDERSTANDS ABOUT THE DIET AND NEED TO EXERCISE OR WALK DAILY. HOWEVER HE JUST FORGETS AND STARTS TAKING IT EASY. I HAVE STRESS THAT HE NEEDS TO CUT OUT THE PORTIONS OF CARBOHYDRATES AND INCREASE INTAKE OF SOLIDS AND VEGGIES AND FRUITS. HE SHOULD ALSO WALK DAILY AND MINIMUM WALK OF 2 MILES AT A VIGOROUS PACE. (2) BRENNEN (obstructive sleep apnea): Comment: He has known diagnosis of obstructive sleep apnea for the past many years. He is very compliant, using every night for an average of 7- 8 hours per night. He sleeps very well Compliance report shows that he has residual AHI of 7.0, this is a little bit high. And I think may be because of gaining some weight. Code(s): G47.33 - Obstructive sleep apnea (adult) (pediatric) Category: Medical Plan: Commended for good compliance. Advised to keep on using BiPAP regularly , Hopefully by weight loss is residual AHI would be reduced to below 5. (3) Dyspnea on exertion: Comment: THIS IS VERY NONSPECIFIC AND MILD . .He has no cough or wheezing Code(s): R06.00 - Dyspnea, unspecified Category: Medical Plan: Advised to do gentle exercise daily and walk at least 2 miles every day and during that time try to do deep breathing exercises. Coding Level of Care Code Est Pt Level 3 (97386) Diagnoses Obesity (BMI 30-39.9) E66.9 BRENNEN (obstructive sleep apnea) G47.33 Dyspnea on exertion R06.00
--- OUTSIDE RECORDS SUMMARY | 2025-02-10 15:52 | XMS_ITS | Clinical Summary ---
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 09/13/20 20 Active atorvastatin (Lipitor) 10 MG tablet daily. 10/30/20 22 Active Blood Glucose Monitoring Suppl (FreeStyle Lite) device as directed 09/24/20 20 Active gabapentin (Neurontin) 300 MG capsule 3 times a day. 06/18/20 18 Active Insulin Aspart (NovoLOG) 100 UNIT/ML solution ADMINISTER 50 TO 100 UNITS UNDER THE SKIN THREE TIMES DAILY DIRECTED PER SLIDING SCALE Active insulin glargine (Lantus) 100 UNIT/ML injection INJECT 90 UNITS SUBCUTANEOUSLY TWICE DAILY Active insulin syringe (Easy Touch Insulin Syringe) 29G X 1/2 1 mL misc USE DIRECTED FIVE TIMES DAILY Active insulin syringe 29G X 1/2 1 mL misc USE TO INJECT INSULIN FIVE TIMES DAILY Active FreeStyle lancets as directed 09/24/20 20 Active meclizine (Antivert) 25 MG tablet 1 tablet as needed 10/01/20 20 Active omega-3 (Fish Oil) 1000 MG capsule 2 times daily. 01/08/20 17 Active lisinopril (Prinivil, Zestril) 10 MG split tablet Take 1 tablet by mouth at bed time. Active omeprazole (PriLOSEC) [address] capsule Take 1 capsule by mouth in the morning. Active lisinopril 20 MG tablet Take 1 tablet by mouth 2 times daily. Active Insulin Syringe 29G X 1/2 0.3 ML misc DIRECTED WITH INSULIN Active glucose blood test strip as directed 10/30/20 20 Active Glucose Blood (FREESTYLE LITE TEST ) USE TO TEST UP TO FIVE TIMES DAILY Active fenofibrate (Triglide) 160 MG tablet daily. Active Blood Glucose Calibration (Contour Next Control) Low solution as directed 09/18/20 Active glucose blood test strip as directed 09/18/20 Active Immunizations Name Administration Dates Next Due Moderna Covid-19 Vaccine 12+ 02/09/2021 Tdap 11/18/2020 Social History Tobacco Use Types Packs/Day Years Used Date Smoking Tobacco: Never Smokeless Tobacco: Never Tobacco Cessation:Counseling Given: Not Answered Sex and Gender Information Value Date Recorded Sex Assigned at Male 09/25/2022 10:24 AM EDT Legal Sex Male 10:24 AM EDT Gender Identity Male 04/12/2023 8:08 AM EDT Sexual Orientation Don't know 04/12/2023 8: 08 AM EDT Plan of Treatment Health Maintenance Due Date Last Done Comments CT Colonography 1960 Colonoscopy 1960 Colorectal Cancer Screening 1960 Depression Screening 1960 FIT DNA/Cologuard 1960 FIT 1960 FOBT 1960 HIV Screening 1960 Lipid Panel 1960 SDOH Screening 1960 Sigmoidoscopy 1960 Alcohol/Substance Use Screening 1972 Hepatitis C Screening 1978 Pneumococcal Vaccine: 50+ Years (1 of 1 - PCV) 2010 Zoster Vaccines (1 of 2) 2010 Dental Prophylaxis 06/13/2013 12/13/2012 Dental Oral Exam 12/15/2019 06/13/2019, 09/09/2012 Dental X-Ray: Full Mouth 06/14/2022 06/13/2019 Tobacco Screening 04/12/2024 04/12/2023 Dental X-Ray: Bitewings 04/13/2024 04/12/2023, 06/13 COVID-19 Vaccine ( season) 2024 10/25/2021, 03/16/2021, 02/22/2021, Additional history exists Influenza Vaccine (#1) 2024 DTaP/Tdap/Td Vaccines (2 - Td or Tdap) 11/18/2030 11/18/2020 RSV Patients and Patients Aged 60 years or older (1 - 1-dose 75+ series) 2035 HIB Vaccines Aged Out No longer eligi ble based on patient's age to complete this topic HPV Vaccines Aged Out No longer eligi ble based on patient's age to complete this topic Hepatitis A Vaccines Aged Out No long er eligible based on patient's age to complete this topic Hepatitis B Vaccines Aged Out No long er eligible based on patient's age to complete this topic IPV Vaccines Aged Out No longer eligi ble based on patient's age to complete this topic Meningococcal Vaccine Aged Out No godfrey laurel eligible based on patient's age to complete this topic RSV under 20 months Aged Out No longe r eligible based on patient's age to complete this topic Rotavirus Vaccines Aged Out No longer eligible based on patient's age to complete this topic Procedures Procedure Name Priority Date/Time Associated Diagnosis Comments BITEWING - SINGLE RADIOGRAPHIC IMAGE Routine 04/12/2023 11:30 AM EDT Dental cyst Dental caries INTRAORAL - COMPLETE SERIES OF RADIOGRAPHIC IMAGES Routine 06/13/2019 12:00 AM EDT PERIODIC ORAL EVALUATION - ESTABLISHED PATIENT Routine 06/13/2019 12:00 AM EDT PROPHYLAXIS - ADULT Routine 12/13/2012 1 2:00 AM EST from Last 3 Months or Most Recently Relevant to Health Maintenance Insurance DENTAL [facility]
--- OUTSIDE RECORDS SUMMARY | 2025-02-10 15:52 | XMS_ITS | Encounter Summary ---
Author Organization [employer] Address [address] [place] [address] [address] [place] [address] Care Team Providers Care Carport Erector Name Role Phone Unavailable Primary Care Provider Unavailabl e Encounter Details Date Type Department Care Team (Late st Contact Info) Description 04/13/2023 Orders Only [facility] [address] [place] [address] Lucy Geronimo, DDS [address] [place] [address] Social History Tobacco Use Types Packs/Day Years Used Date Smoking Tobacco: Never Smokeless Tobacco: Never Sex and Gender Information Value Date Recorded Sex Assigned at Male 09/25/2022 10:24 AM EDT Legal Sex Male 10:24 AM EDT Gender Identity Male 04/12/2023 8:08 AM EDT Sexual Orientation Don't know 04/12/2023 8: 08 AM EDT COVID-19 Exposure Response Date Recorded In the last 10 days, have yo u been in contact with someone who was confirmed or suspected to have Coronavirus/COVID-19? No / Unsure 04/12/2023 11:22 AM EDT documented as of this encounter Plan of Treatment Not on file documented as of this encounter Visit Diagnoses Not on filedocumented in this encounter
--- OUTSIDE RECORDS SUMMARY | 2025-02-10 15:52 | XMS_ITS | Patient Health Record ---
Author Organization [facility] Address [address] [place] [id number] Care Team Providers Care Supervisor Inventory Merchandising Name Role Phone Wander Reich MD Primary Care Provider Unavailab Hitesh Guzmán Jr Unavailable Allergies Allergen (clinical drug ingredient) Drug/Non Drug Allergy documented on EMR Reaction Allergy Type Onset Date Status Pollen Pollen Unknown Allergy Active Reason For Referral No Information Medications Medication SIG (Take, Route, Frequency, Duration) Notes Start Date End Date Status Atorvastatin Calcium 10 MG TAKE 1 TABLET BY MOUTH EVERY DAY Diagnosis Unavailable Oral for 30 Active Betamethasone Dipropionate Aug 0.05 % External for 21 Active Omeprazole 20 MG TAKE 1 CAPSULE BY [facility] EVERY DAY Oral for 90 Active Lantus 100 UNIT/ML INJECT 90 UNITS SUBCUTANEOUS TWICE DAILY Subcutaneous for 88 Active Contour Next Test - USE DIRECTED 5 TI MES DAILY In Vitro for 30 Active NovoLOG 100 UNIT/ML Injection for 32 Active Gabapentin 300 MG TAKE 1 CAPSULE BY [facility] THREE TIMES DAILY Oral for 30 Active Fenofibrate 160 MG Oral for 90 Active Lisinopril 20 MG Oral for 90 A ctive Aspirin 81 81 MG 1 tablet Orally Once a day for 30 day(s) Active MiraLax (colon prep) 17 GM/SCOOP mixed with Gatorade or Crystal Light Orally begin at 5:00 p.m. the day before the procedure for 1 day 06/18/2023 Active Easy Touch Insulin Syringe 29G X 1/2 1 ML USE DIRECTED FIVE TIMES DAILY for 90 Active Immunizations Vaccine Route Administration Date Status Comme nts Influenza Unknown 06/18/2023 Refused Social History Tobacco Use: Social History Observation Description Date Details (start date - stop date) Never Smoker NA - NA Tobacco Use/Smoking Question Answer Notes Patient is a nonsmoker Alcohol Screen Question Answer Notes Did you have a drink containing alcohol in the p ast year? No Points 0 Interpretation Negative Problems Problem Type SNOMED Code ICD Code Onset Dates Problem Status W/U Status Risk Notes Problem 031093214 Colon cancer screening (Z12.11) Active confirmed Problem 727774015 supervisor intermediates (current) use of insulin (Z79.4) Active confirmed Problem 072137357 Long-term use of aspirin therapy (Z79.82) Active confirmed Plan Of Treatment Future Test Test Name Order Date COLONOSCOPY 06/18/2023 Insurance Providers Payer Name Payer Address Payer Phone Subscriber Number Group Number Insured Name Patient Relationship to Insured Coverage Start Date Coverage End Date [facility] [address] Attn Claims DARIEL Araiza [id number] STU FORBES Self - patient is the insured Medical (General) History Medical History History ICD Code 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
--- OUTSIDE RECORDS SUMMARY | 2025-02-10 15:52 | XMS_ITS | Encounter Summary ---
Author Organization [employer] Address [address] [place] [address] [address] [place] [address] Care Team Providers Care Cement Finishing Supervisor Name Role Phone Unavailable Primary Care Provider Unavailabl e Reason for Visit * Reason Onset Date Comments medication 04/13/2023 Encounter Details Date Type Department Care Team ([facility] st Contact Info) Description 04/13/2023 Telephone [facility] [address] [place] [address] Lucy Geronimo DDS [address] [place] [address] medication Social History Tobacco Use Types Packs/Day Years [...] AM EDT documented as of this encounter Miscellaneous Notes * Telephone Encounter - Lucy Geronimo DDS - 04/13/2023 11:24 AM EDT Please inform the pt that the abx is for 7 days, and new pain medication has been sent- Ibuprofen 800 mg * Telephone Encounter - Madelin Valencia - 04/13/2023 9:22 AM EDT Patient called in stating that he is curious if amoxicillin causes more pain. He took it last nightand experienced far more pain than he was in before and almost went to the ER. He ended up taking some oxycodone that he had from a prior wrist surgery and that helped. He took the amoxicillin this morning and says he feels ok but still has a lot of pain. He is looking for something other than the a cetaminophen to be sent to pharmacy. The insurance didn't cover it because it is over the counter. documented in this encounter Plan of Treatment Not on file documented as of this encounter Visit Diagnoses Not on filedocumented in this encounter
== END 2025-02-10 13:50 | disposition home or self-care (01) ==
LOC: HO.HPS 13:29
PROVIDERS: PCP Internal Medicine; Visit Provider Internal Medicine
DX: E66.9 Obesity, unspecified (principal); G47.33 Obstructive sleep apnea (adult) (pediatric); R06.00 Dyspnea, unspecified
CPT/HCPCS: 99213

== ENCOUNTER → 2025-02-10 13:29 | Outpatient (BNVA) | payer OTHER, SELFPAY | PROVIDERS: PCP Internal Medicine; Visit Provider Internal Medicine | DX: G47.33 Obstructive sleep apnea (adult) (pediatric) (principal); R06.00 Dyspnea, unspecified; E66.9 Obesity, unspecified; Z68.37 Body mass index [BMI] 37.0-37.9, adult | CPT/HCPCS: 99212 ==

== ENCOUNTER 2025-04-29 15:36 | Emergency (ER) | payer OTHER, SELFPAY ==
--- NOTE | ~2025-04-29 | XR_ITS ---
EXAMINATION: XR LUMBOSACRAL SPINE CLINICAL INFORMATION: atraumatic low back pain COMPARISON: None available. TECHNIQUE: Three views of the lumbosacral spine. FINDINGS: There is maintained lumbar lordosis. The vertebral heights and alignment is normal. There is mild loss of 5-S1 disc height. Rest the disc heights are normal. The vertebral heights and alignment is normal. There is mild/moderate ventral spinal spondylosis L5-S1, L3-4 and mild spondylosis L5-disc level. XR/XR lumbar spine 2-3V IMPRESSION: Degenerative disc changes and spondylosis as described above. No acute fracture, lytic or sclerotic process seen. Electronically signed by: Kris Leavitt MD 04/29/2025 04:39 PM EDT
[2025-04-29 15:53] VITALS: BP 122/76; PULSE 80; RESP 18; TEMP 36.2; O2SAT 97; BMI 36.8
--- NOTE | 2025-04-29 15:53 | ED_ITS ---
HPI - Back Pain/Injury General Chief Complaint: Back Pain/Injury Stated Complaint: Lower back pain, leg pain Time Seen by Provider: 04/29/25 17:58 Source: patient Mode of arrival: ambulatory Limitations: no limitations History of Present Illness ED Provider: SARAH SHELDON PA-C HPI Narrative: 64 year old male with pmhx significant for spinal stenosis, lumbar radiculopathy, DM, GERD, PAT, peripheral neuropathy, CTS, osteomyelitis presents to the ED today for evaluation of low back pain x2 years, worsening over the last 6 weeks. Admits to bilateral low back pain with radiation down bilateral lower extremities. Reports chronic numbness to bilateral lower extremities. Takes gabapentin for peripheral neuropathy. Saw his PCP for symptoms. Has MRI scheduled in 2 weeks. States I do not know why have to wait 2 weeks for an MRI . He is not taking any [id number] medications for pain. Denies hx IVDU. Denies hx spinal surgery. Denies saddle anesthesia, bowel or bladder incontinence or retention, dysuria, hematuria, fever, chills. Reports following up with neuro spine 2 years ago. Was told to return with any new or worsening symptoms with plan for possible surgery. Reports calling their office. They are unable to see him without an updated MRI. Patient states that his sugars are well controlled. Related Data Home Medications ?Medication ?Instructions ?Recorded ?Confirmed insulin glargine 100 unit/mL 90 unit subcut BID 09/29/20 12/03/24 subcutaneous solution (Lantus U-100 Insulin) latanoprost 0.005 % eye drops 1 drp ophthalmic (eye) DAILY 09/29/20 12/03/24 fenofibrate 160 mg tablet 160 mg PO DAILY 11/25/20 12/03/24 omeprazole 20 mg capsule,delayed 20 mg PO DAILY 11/25/20 12/03/24 release insulin syringe-needle U-100 1 mL #10 ea 04/05/21 12/03/24 29 gauge x 1/2 atorvastatin 10 mg tablet 10 mg PO DAILY 04/10/23 12/03/24 aspirin 81 mg tablet,delayed 81 mg PO DAILY 07/27/23 12/03/24 release insulin aspart U-100 100 unit/mL 50 - 100 unit subcut TID 07/31/23 12/03/24 subcutaneous solution (Novolog U-100 Insulin aspart) gabapentin 300 mg capsule 300 mg PO TID PRN 08/25/24 12/03/24 lisinopril 20 1 tab PO BID 12/03/24 12/03/24 mg-hydrochlorothiazide 25 mg tablet Previous Rx's ?Medication ?Instructions ?Recorded lidocaine 5 % topical patch 1 patch topical DAILY #15 ea 04/29/25 (Lidoderm) prednisone 20 mg tablet 40 mg (2 x 20 mg) PO DAILY 5 days 04/29/25 #10 tabs Allergies Allergy/AdvReac Type Severity Reaction Status Date / Time pollen extracts [POLLEN] Allergy Unknown WATERY Verified 04/29/25 15:55 EYES/SNEEZING Review of Systems Review of Systems: Constitutional: No fever, chills, fatigue, night sweats, weight changes ENT/Mouth: No ear pain, hearing loss, nasal congestion, sinus pain, rhinorrhea, sore throat Eyes: No eye pain, swelling, redness, vision changes, discharge Cardio: No chest pain, palpitations, BATISTA, orthopnea, peripheral edema Pulm: No SOB, cough, sputum, wheezing, dyspnea, hemoptysis GI: No nausea, vomiting, hematemesis, abdominal pain, diarrhea, constipation, hematochezia, melena : No irregular bleeding, dysuria, frequency, urgency, hesitancy, hematuria, flank pain, urinary flow changes, urinary incontinence or retention MSK: +back pain, No neck pain, joint pain, myalgias Skin: No lesions, rashes Neuro: No weakness, numbness, paresthesias, LOC, dizziness, headache All other systems reviewed and are negative. [facility] Past Medical History Attestation statement: The following information was validated with the patient. Source: old records reviewed and nursing notes reviewed Medical History Acute rhinosinusitis Venous stasis Retinopathy Neuropathy Dyspnea on exertion Right hand weakness Hand weakness Closed fracture of right thumb PAT (obstructive sleep apnea) Obesity (BMI 30-39.9) Diabetes mellitus Restless leg syndrome Hyperlipidemia Hypertension Surgical History Hx of foot surgery History of carpal tunnel surgery of left wrist Hx of colonoscopy Social History Social History Patient Tobacco Use Status: Never used Tobacco Advance Directives: No Advance Directives Information Provided: Yes Current occupation: Right Handed Physical Exam Vital Signs: Vital Signs: Last Vital Signs Temp 97.2 F 04/29/25 18:19 Pulse 80 04/29/25 18:19 Resp 18 04/29/25 18:19 BP 122/76 04/29/25 18:19 Pulse Ox 97 04/29/25 18:19 O2 Del Method Room Air 04/29/25 18:19 BMI result Body Mass Index 36.8 vital sign stable General: Well appearing, in no acute distress. Skin: Warm, dry, intact. No rashes or lesions. Head: Normocephalic, atraumatic. EENT: Hearing is intact b/l. Conjunctiva clear. Sclera is anicteric. PERRLA. EOM intact. Moist mucous membranes.? Cardiac: Chest wall symmetric. RRR Lungs: Normal respiratory effort without accessory muscle use. CTA bilaterally. Back: No midline spinous tenderness or step-off deformity. No paraspinal muscle tenderness to palpation. negative straight leg raise b/l. no cvat. Ext: Upper and lower extremities atraumatic, without tenderness, deformity, sw elling or erythema Neuro: AOx3. Normal speech. Strength 5/5 intact throughout. Sensation intact to light touch. NV intact distally. Ambulating with slow steady gait Course Course Course Narrative: 04/29/25 1554 DARIEL Patel This is a Rapid Medical Examination (RME) performed by Fatou Sheldon PA-C in triage. Full HPI, ROS, assessment and treatment plan per primary provider in the Main ED. Hx: 64 yo M here for eval of low back pain radiating down both LEs x years, pain now getting worse x1.5 mo. no injury/trauma. numbness to b/l LEs, intermittent. PE/vitals: ambulating w/ steady gait, well appearing Plan: xrs Reevaluation(s) Reevaluation #1: X-ray showing degenerative disc changes and spondylosis. No acute fracture, lytic or sclerotic process seen. There are no back pain red flags. Exam is quite unremarkable. He does have MRI ordered in 2 weeks. I do not feel as though things to be done emergently in the ED today. I do not have concern for cauda equina at this time. Will send patient home on a short course of prednisone. Advised to monitor his glucose at home and discontinue meds if it starts elevating. He verbalizes understanding. Patient has remained stable throughout ED visit today. Discussed worrisome signs and symptoms and when to return to the ED. All questions answered at this time. Patient is agreeable with disposition and stable for discharge. Medical Decision Making Medical Decision Making MDM Narrative: 64 year old male with pmhx significant for spinal stenosis, lumbar radiculopathy, DM, GERD, PAT, peripheral neuropathy, CTS, osteomyelitis presents to the ED today for evaluation of low back pain x2 years, worsening over the last 6 weeks. vital signs stable. afebrile. On exam, there is no midline spinous tenderness or step-off deformity. There is no paraspinal muscle tenderness. No overlying erythema. No fluctuance or crepitus. CMS intact distally. Sensation intact to light touch throughout. Ambulating with slow but steady gait. Negative straight leg raise bilaterally. Concern for MSK sprain/strain, fracture, subluxation, disc herniation, sciatica, arthritis, DDD. Presentation not consistent with UTI, pyelo, hydro nephritis, nephrolithiasis, renal colic. Unlikely cord compression, cauda equina, Guillain-Reliance, epidural abscess, aortic dissection, aortic aneurysm. Plan for imaging, re-evaluation. Differential Diagnosis Differential Diagnoses: The differential diagnosis associated with the presentation includes as above Admission/Observation Not indicated. Independent Interpretation I performed an independent interpretation of an: Plain X-Ray Interpretation: X-ray lumbar spine without compression fracture Radiology Impression Discussion of test interpretation with radiology: I have reviewed the radiologist's reading. Radiologist Impression: Date of Service: 04/29/25 Procedure(s): XR lumbar spine 2-3V Accession Number(s): [id number] cc: JESSICA NIETO BURRER OPERATOR; Sarah Sheldon~ EXAMINATION: XR LUMBOSACRAL SPINE CLINICAL INFORMATION: atraumatic low back pain COMPARISON: None available. TECHNIQUE: Three views of the lumbosacral spine. FINDINGS: There is maintained lumbar lordosis. The vertebral heights and alignment is normal. There is mild loss of 5-S1 disc height. Rest the disc heights are normal. The vertebral heights and alignment is normal. There is mild/moderate ventral spinal spondylosis L5-S1, L3-4 and mild spondylosis L5-disc level. XR/XR lumbar spine 2-3V IMPRESSION: Degenerative disc changes and spondylosis as described above. No acute fracture, lytic or sclerotic process seen. Electronically signed by: Kris Leavitt MD 04/29/2025 04:39 PM EDT RP External Record Review External record reviewed: Inpatient record Prescription Management I considered prescription management with: Pain Medication and Other (prednisone) Social Determinants Patient?s care significantly limited by Social Determinants of Health including: Other Social Determinant of Health Critical Care Time Critical Care Time Critical Care Time: No Discharge Plan Discharge Clinical Impression: Degenerative disc disease, lumbar Patient Disposition: Home, Self-Care Instructions: Degenerative Disc Disease (ED) Additional Instructions: You were evaluated in the Emergency Department today for your back pain.? Your evaluation did not show signs of medical conditions requiring emergent intervention at this time. Xray of your low back shows degenerative disc changes. Avoid bending, lifting, or twisting. Use ice several times per day for 20 minutes at a time for the next 48 hours and then change to heat. I recommend you take 600mg ibuprofen every 6 hours or tylenol 650mg every 6 hours as needed for pain. If needed, you can alternate these medications so that you take one medication every 3 hours. For example, at noon take ibuprofen, then at 3pm take tylenol, then at 6pm take ibuprofen. I am sending a course of steroids to your pharmacy. As discussed, you need to monitor your blood sugars at home daily. If you find your sugars are getting high, please discontinue prednisone use. Lidoderm patches are numbing patches. Apply to painful areas. Please schedule an appointment for follow-up with your primary care provider this week for further evaluation of your symptoms. Return to the Emergency Department if you experience worsening back pain, difficulty walking, fevers, numbness, tingling, incontinence, or any other concerning symptoms. In the case of an emergency call 911. Prescriptions: New prednisone 20 mg tablet 40 mg PO DAILY 5 Days Qty: 10 0RF lidocaine [Lidoderm] 5 % adhesive patch,medicated 1 patch topical DAILY Qty: 15 0RF Rx Instructions: leave on most painful area for up to 12 hrs No Action aspirin 81 mg Tablet,Delayed Release (Dr/Ec) 81 mg PO DAILY insulin aspart U-100 [Novolog U-100 Insulin aspart] 100 unit/mL solution 50 - 100 unit subcut TID Lantus U-100 Insulin 100 unit/mL solution 90 unit subcut BID latanoprost 0.005 % drops 1 drp ophthalmic (eye) DAILY (DME) insulin syringe-needle U-100 1 mL 29 gauge x 1/2 syringe See Rx Instructions .ROUTE QID Qty: 10 Rx Instructions: As directed fenofibrate 160 mg tablet 160 mg PO DAILY omeprazole 20 mg capsule,delayed release(DR/EC) 20 mg PO DAILY atorvastatin 10 mg tablet 10 mg PO DAILY gabapentin 300 mg capsule 300 mg PO TID PRN lisinopril-hydrochlorothiazide 20-25 mg tablet 1 tab PO BID Referrals: Jessica Nieto NP [Primary Care Provider] - 5 days Interventions: ED Discharge Assessment Last Done: 04/29/25 18:19 Discharge Date/Time: 04/29/25 18:20 Print Language: Danish
[2025-04-29 18:19] VITALS: BP 122/76; PULSE 80; RESP 18; TEMP 36.2; O2SAT 97
== END 2025-04-29 18:20 | disposition home or self-care (01) ==
PROVIDERS: Emergency Provider Emergency Medicine Emergency Medical Services; PCP Nurse Practitioner Family
DX: M54.50 Low back pain, unspecified (principal); E11.9 Type 2 diabetes mellitus without complications; K21.9 Gastro-esophageal reflux disease without esophagitis; M51.369 Other intervertebral disc degeneration, lumbar region without mention of lumbar back pain or lower extremity pain; Z79.899 Other long term (current) drug therapy
CPT/HCPCS: 72100; 99282; 99283

== ENCOUNTER → 2025-04-29 15:55 | Outpatient (BNV) | payer OTHER, SELFPAY | PROVIDERS: PCP Nurse Practitioner Family; Visit Provider Radiology Diagnostic Radiology | DX: M47.816 Spondylosis without myelopathy or radiculopathy, lumbar region (principal) | CPT/HCPCS: 72100 ==

== ENCOUNTER 2025-05-11 14:29 | Outpatient (AMB) | payer OTHER, SELFPAY ==
--- NOTE | 2025-05-11 14:32 | HO.SPINEOV ---
Intake Visit Reasons: low back pain getting worst Intake Note: Mr. Mena is here today c/o low back pain that is getting worse. Auto Design Checker Required: No Allergies pollen extracts [POLLEN] Allergy (Unknown, Verified 04/29/25 15:55) WATERY EYES/SNEEZING Assessment & Plan Assessment & Plan (1) Lumbar stenosis: Code(s): M48.061 - Spinal stenosis, lumbar region without neurogenic claudication Category: Medical Plan Mr Mena is here in follow-up. He has had progressively worsening bilateral leg pain since I last saw him about a year and a half ago. Symptoms have now become quite intense, whereas before they are very manageable. He is taking Tylenol and gabapentin but it does not really seem to do much. He was in the emergency room a few weeks ago and they gave him steroid and he was on that for 4 5 days but it did not do much. A repeat MRI done at [place] shows progression of the stenosis at L3-4 and L4-5. Specifically L4-5 is now quite severe in addition to L3-4 also being moderate to severe. The disc herniation he had at L5-S1 seems to have retracted a bit. I do not see any overt compression of the nerves although it does come close to contacting them. I reviewed with the patient his films, went over things at length and I think he would be a good candidate for decompression. Specifically L3-4 and L4-5. I will review with Dr. Beard to see if he also thinks we need to consider L5-S1. Usually he will do this unilaterally with a minimally invasive approach for bilateral decompression. So I reviewed that procedure with the patient, risks, benefits etc.. Once I have a chance to review everything with Dr. Beard I will get back to the patient with a final plan. He knows he needs to stop his Mounjaro 1 week before surgery. Other than that his diabetes is well controlled with an A1c just under 6. He has no major medical problems that should preclude him from surgery. Total amount of time spent in this visit was 20 minutes in discussion of symptoms, lumbar MRI imaging results and subsequent plan of care Mark Beard MD,PhD [facility] Coding Level of Care Code Est Pt Level 3 (16614) Diagnoses Lumbar stenosis M48.061
--- OUTSIDE RECORDS SUMMARY | 2025-05-11 16:11 | XMS_ITS | Clinical Summary ---
Author Organization [employer] Address [address] [place] [address] [address] [place] [address] Care Team Providers Care Sprue Knocker Name Role Phone Unavailable Primary Care Provider [...] Active glucose blood test strip as directed 09/24/20 20 Active Glucose Blood (FREESTYLE LITE TEST ) USE TO TEST UP TO FIVE TIMES DAILY Active fenofibrate (Triglide) 160 MG tablet daily. Active Blood Glucose Calibration (Contour Next Control) Low solution as directed 09/18/20 Active glucose blood test strip as directed 09/18/20 Active Immunizations Immunization Administration Dates Next Due Moderna Covid-19 Vaccine [...] Panel 1960 SDOH Screening 1960 Sigmoidoscopy 1960 Disability Screening 1960 Alcohol/Substance Use Screening 1972 Hepatitis C [...] 03/16/2021, 02/22/2021, Additional history exists Influenza Vaccine (Season Ended) 2025 DTaP/Tdap/Td Vaccines (2 - Td or Tdap) [...] patient's age to complete this topic Meningococcal B Vaccine Aged Out No l onger eligible based on patient's age to complete [...] Recently Relevant to Health Maintenance Insurance [facility] * Guarantor: Mark Mena Account Type Relation to Patient Date of Phone Billing Address Personal/Family Self 4 [facility] [place]
== END 2025-05-11 15:46 | disposition home or self-care (01) ==
LOC: HO.HNS 14:30
PROVIDERS: PCP Nurse Practitioner Family; Visit Provider Physician Assistant
DX: M48.061 Spinal stenosis, lumbar region without neurogenic claudication (principal)
CPT/HCPCS: 99213

== ENCOUNTER → 2025-05-11 14:29 | Outpatient (BNVA) | payer OTHER, SELFPAY | PROVIDERS: PCP Nurse Practitioner Family; Visit Provider Physician Assistant | DX: M48.061 Spinal stenosis, lumbar region without neurogenic claudication (principal) | CPT/HCPCS: 99212 ==

== ENCOUNTER 2025-05-26 12:29 | Outpatient (AMB) | payer OTHER, SELFPAY ==
[2025-05-26 12:41] VITALS: BP 123/62; PULSE 82; TEMP 37; O2SAT 96; BMI 35.9
--- NOTE | 2025-05-26 12:41 | MHC.OFFWIV ---
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 - The cough has persisted for at least three weeks, initially severe but improving with jvie-yaa-qsefnup cold and allergy medications. - The patient reports nocturnal cough with associated chest discomfort and a strange taste, likely due to phlegm. - No significant fever history as an adult, but reports fatigue and minor headaches. - Shortness of breath occurs with exertion, but no wheezing or significant dyspnea at rest. - The patient's mother was diagnosed with mild pneumonia, raising concerns about a similar condition. - No sinus pain or ear pain reported, and no significant sinus tenderness on examination. Physical Exam General: Cooperative, healthy appearing, comfortable and no acute distress Orientation/consciousness: Patient oriented x3 Limitations: No limitations Head: Normal to inspection Ears: Hearing grossly normal bilaterally, external ears normal and TM's normal bilaterally Nose: Normal external nose present, Normal nares present and No nasal discharge present Face and sinus: Normal facial exam and Yes sinuses nontender Mouth: Normal oral and palatal mucosa present and moist mucous membranes Throat: Yes tonsils normal, Yes uvula midline. Posterior oropharynx erythema, no exudates Eyes: Appearance normal, both eyes and all related structures Neck: Normal visual inspection, full ROM Respiratory: Clear to auscultation bilaterally. Normal respiratory effort, able to speak in complete sentences, Actively coughing, no respiratory distress, not tachypneic, no tripod positioning and no use of accessory muscles Cardiovascular: Regular rate and rhythm. Normal S1 and S2 Skin: No rashes or lesions noted Neuro: Patient oriented x3 Extremities: Normal to inspection and Yes no clubbing, cyanosis or edema PFSH Medical History Acute rhinosinusitis Venous stasis Retinopathy Neuropathy Dyspnea on exertion Right hand weakness Hand weakness Closed fracture of right thumb PAT (obstructive sleep apnea) Obesity (BMI 30-39.9) Diabetes mellitus Restless leg syndrome Hyperlipidemia Hypertension Surgical History Hx of foot surgery History of carpal tunnel surgery of left wrist Hx of colonoscopy Social History Patient Tobacco Use Status: Never used Tobacco Current occupation: Right Handed Review of Systems Const All systems reviewed & are unremarkable except as noted in HPI and below Physical Exam Vital Signs: Last Vital Signs Temp 98.6 F 05/26/25 12:41 Pulse 82 05/26/25 12:41 BP 123/62 05/26/25 12:41 Pulse Ox 96 05/26/25 12:41 Oxygen Delivery Method Room Air 05/26/25 12:41 BMI result Body Mass Index 35.9 Assessment & Plan Assessment & Plan (1) URI, acute: Code(s): J06.9 - Acute upper respiratory infection, unspecified Plan: - VSS, pt well appearing and PE unremarkable. - Prescribe cough suppressants to be taken at night to alleviate nocturnal cough and improve sleep quality. - Consider starting Z-Mark azithromycin if symptoms do not improve within a couple of days, indicating a possible bacterial infection. Sent prescription, asked pt to see if this resolved in 24-48hours and if not, he should waste picker the antibiotic. Patient was informed and verbally consented to the use of an ambient scribe for clinic note documentation during this visit Medications: New benzonatate 200 mg PO BEDTIME PRN 10 caps 0RF cough azithromycin For 250 mg dose pack: take 500 mg today (day 1), then 250 mg for 4 days (days 2-5) PO 6 tabs 0RF Coding Level of Care Code New Pt Level 3 (03705) Diagnoses URI, acute J06.9
--- OUTSIDE RECORDS SUMMARY | 2025-05-26 13:21 | XMS_ITS | Clinical Summary ---
Author Organization [employer] Address [address] [place] [address] [address] [place] [address] Care Team Providers Care Highway Engineering Technician Name Role Phone Unavailable Primary Care Provider [...] Relevant to Health Maintenance Insurance DENTAL - [facility] * Guarantor: Mark Mena Account Type Relation to Patient Date of Phone Billing Address Personal/Family Self 4 [facility] [place]
--- OUTSIDE RECORDS SUMMARY | 2025-05-26 13:22 | XMS_ITS | Patient Health Record ---
Author Organization [facility] Address [address] [place] [id number] Care Team Providers Care Legal Job Titles Name Role Phone Wander Reich MD Primary Care Provider Unavailab Hitesh Guzmán Jr Unavailable [phone] Allergies Allergen (clinical drug ingredient) Drug/Non Drug [...] 20 MG TAKE 1 CAPSULE BY MO [facility] EVERY DAY Oral for 90 Active Lantus 100 UNIT/ML INJECT 90 UNITS SUBCUTANEOUS TWICE DAILY Subcutaneous for 88 Active Contour Next Test - USE DIRECTED 5 TI MES DAILY In Vitro for 30 Active NovoLOG 100 UNIT/ML Injection for 32 Active Gabapentin 300 MG TAKE 1 CAPSULE BY MO [facility] THREE TIMES DAILY Oral for 30 Active [...] Problem Status W/U Status Risk Notes Problem 721085339 Colon cancer screening (Z12.11) Active confirmed Problem 402981722 longterm (current) use of insulin (Z79.4) Active confirmed Problem 605414257 Long-term use of aspirin therapy (Z79.82) Active confirmed Plan Of Treatment Future Test Test Name Order Date COLONOSCOPY 06/18/2023 Insurance Providers Payer Name Payer Address Payer Phone Subscriber Number Group Number Insured Name Patient Relationship to Insured Coverage Start Date Coverage End Date [facility] [address] Attn Claims DARIEL Araiza [id number] STU FORBES Self - patient is the insured Medical (General) History Medical History History ICD Code 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
== END 2025-05-26 13:18 | disposition home or self-care (01) ==
PROVIDERS: PCP Nurse Practitioner Family; Visit Provider Physician Assistant
DX: J06.9 Acute upper respiratory infection, unspecified (principal)

== ENCOUNTER → 2025-05-26 12:29 | Outpatient (BNVA) | payer OTHER, SELFPAY | PROVIDERS: PCP Nurse Practitioner Family; Visit Provider Physician Assistant | DX: R05.3 Chronic cough (principal); J06.9 Acute upper respiratory infection, unspecified | CPT/HCPCS: 99202 ==

== ENCOUNTER 2025-05-28 13:26 | Emergency (ER) | payer OTHER, SELFPAY ==
[2025-05-28 13:30] VITALS: BP 125/68; PULSE 89; RESP 16; TEMP 36.4; O2SAT 96; BMI 35.8
--- NOTE | 2025-05-28 13:39 | ED.GENADULT ---
HPI - General Adult General Chief complaint: Back Pain/Injury Stated complaint: Pain both legs Time Seen by Provider: 05/28/25 14:38 History of Present Illness ED Provider: Maxime Connelly HPI narrative: 64-year-old male with severe lumbar radiculopathy presents to ED for lower back pain exacerbation radiating down legs. Patient comes to the ED stating he wants pain controlled. Patient has spinal surgery due for the 17 of June but has been refused pain meds by his spinal surgeon and other primary care providers. Related Data Home Medications ?Medication ?Instructions ?Recorded ?Confirmed latanoprost 0.005 % eye drops 1 drp ophthalmic (eye) DAILY 09/29/20 12/03/24 fenofibrate 160 mg tablet 160 mg PO DAILY 11/25/20 12/03/24 omeprazole 20 mg capsule,delayed 20 mg PO DAILY 11/25/20 12/03/24 release insulin syringe-needle U-100 1 mL #10 ea 04/05/21 12/03/24 29 gauge x 1/2 atorvastatin 10 mg tablet 10 mg PO DAILY 04/10/23 12/03/24 aspirin 81 mg tablet,delayed 81 mg PO DAILY 07/27/23 12/03/24 release gabapentin 300 mg capsule 300 mg PO TID PRN 08/25/24 12/03/24 lisinopril 20 1 tab PO BID 12/03/24 12/03/24 mg-hydrochlorothiazide 25 mg tablet insulin lispro 200 unit/mL (3 mL) 1 sliding scale dose subcut 05/26/25 subcutaneous pen (Humalog KwikPen USEASDIRECTD U-200 Insulin) insulin lispro 200 unit/mL (3 mL) subcut 05/26/25 subcutaneous pen (Humalog KwikPen U-200 Insulin) Previous Rx's ?Medication ?Instructions ?Recorded lidocaine 5 % topical patch 1 patch topical DAILY #15 ea 04/29/25 (Lidoderm) prednisone 20 mg tablet 40 mg (2 x 20 mg) PO DAILY 5 days 04/29/25 #10 tabs azithromycin 250 mg tablet See Rx Instructions PO .COMPLEX #6 05/26/25 tabs benzonatate 200 mg capsule 200 mg PO BEDTIME PRN cough #10 05/26/25 caps oxycodone 5 mg tablet 5 mg PO Q8H PRN pain #9 tabs 05/28/25 prednisone 20 mg tablet 40 mg (2 x 20 mg) PO DAILY 5 days 05/28/25 #10 tabs Allergies Allergy/AdvReac Type Severity Reaction Status Date / Time pollen extracts (POLLEN) Allergy Unknown WATERY Verified 05/28/25 13:34 EYES/SNEEZING Review of Systems Review of Systems: Back pain radiating down both legs Yes all other systems are reviewed and are negative [facility] Past Medical History Medical History Acute rhinosinusitis Venous stasis Retinopathy Neuropathy Dyspnea on exertion Right hand weakness Hand weakness Closed fracture of right thumb PAT (obstructive sleep apnea) Obesity (BMI 30-39.9) Diabetes mellitus Restless leg syndrome Hyperlipidemia Hypertension Surgical History Hx of foot surgery History of carpal tunnel surgery of left wrist Hx of colonoscopy Social History Social History Patient Tobacco Use Status: Never used Tobacco Advance Directives: No Advance Directives Information Provided: No Do you have a plan to hurt others: No Plan Current occupation: Right Handed Physical Exam ED Vital Signs: Vital Signs - 24 hr 05/28/25 13:30 05/28/25 16:03 Temperature 97.5 F 97.5 F Pulse Rate 89 89 Respiratory Rate 16 16 Blood Pressure 125/68 125/68 Pulse Oximetry 96 96 Oxygen Delivery Method Room Air Room Air BMI result Body Mass Index 35.8 Const General: cooperative, healthy appearing, comfortable, no acute distress, well developed, alert, awake and Physically active Orientation/consciousness: patient oriented x3 HENMT Head: Yes normal to inspection, Yes No palpable skull fracture present, Yes normocephalic and Yes atraumatic Eyes General: appearance normal, both eyes and all related structures Neck Neck: Yes normal visual inspection, Yes full ROM, Yes no lymphadenopathy, Yes no meningeal signs, Yes trachea midline, Yes supple, No anterior neck swelling and No tender Chest Chest palpation & inspection: normal inspection of the chest and normal palpation of entire chest wall Resp Effort & Inspection: normal respiratory effort and able to speak in complete sentences Auscultation: clear to auscultation bilaterally Cardio Jugular venous distension: no JVD Heart sounds: S1 normal heart sound present and S2 normal heart sound present GI Inspection: Yes normal to inspection Palpation (GI): Soft to palpation, not firm, nontender, no guarding and not rigid General: Yes no CVA tenderness Back/Spine/Pelvis Back: no CVA tenderness and back tenderness (lumbar spine tenderness) Skin General skin exam: no rashes or lesions noted, elasticity normal and turgor normal Neuro General: patient oriented x3, gait normal, tone normal, moves all extremities, Normal light touch and pain sensation, no meningeal signs, no focal motor deficits, CN's II-XI intact bilaterally and normal sensation to monofilament Extrem General: Yes normal to inspection, Yes full ROM and Yes capillary refill normal Psych Appearance: grossly normal, well kempt and not disheveled Course Course Course Narrative: RME: 64-year-old male presents to ED for back pain radiating down both legs. Patient states this is chronic in his due for surgery June 17. Patient presents to ED for pain management. Patient was informed by his primary care provider he is not able to describe any pain meds. Patient denies any recent trauma. Medications Administered Discontinued Medications Generic Name Dose Route Start Last Admin Trade Name Freq PRN Reason Stop Dose Admin Acetaminophen 975 mg 05/28/25 15:24 05/28/25 15:31 Acetaminophen 325 Mg Tablet PO 05/28/25 15:25 Not Given ONCE ONE Ketorolac Tromethamine 30 mg 05/28/25 14:50 05/28/25 15:06 Ketorolac Tromethamine 30 Mg/Ml Vial IM 05/28/25 14:51 Not Given ONCE ONE Medical Decision Making Medical Decision Making MDM Narrative: 64-year-old male presents to ED for chronic back pain exacerbation without any recent trauma. Patient denies any IV drug use. Not suspecting cauda equinus or epidural abscess. Patient denies any urinary/bowel incontinence. Not suspecting osteomyelitis, fracture, dislocation, pyelonephritis, kidney stones, UTI, or any other life threatening eitology.. Patient will be discharged with oxycodone. Patient informed to follow up with spinal surgeon Dr. Batista. Patient states Tylenol is not enough. Patient explained worrisome signs and informed to return to the ED immediately. no need for repeat imaging. patient had recent xrays. Differential Diagnosis Differential Diagnoses: The differential diagnosis associated with the presentation includes (lumbar radiculopahty) Admission/Observation Consideration of admission/observation: Escalation of care including admission/observation considered Independent Historian Clinical information obtained from an independent historian. History obtained from or confirmed by: Other (patient) Prescription Management I considered prescription management with: Pain Medication Discharge Plan Discharge Clinical Impression: Lumbar radiculopathy Patient Disposition: Home, Self-Care Instructions: Lumbar Radiculopathy (ED) Additional Instructions: Recommend follow-up with spinal surgeon will need to referral to pain management. Return to the ED immediately for any worsening back pain, urinary/bowel incontinence, lower extremity weakness paralysis, fever, chills, abdominal pain, nausea, vomiting, or any other concerning symptoms. Prescriptions: New prednisone 20 mg tablet 40 mg PO DAILY 5 Days Qty: 10 0RF oxycodone 5 mg tablet 5 mg PO Q8H PRN (Reason: pain) Qty: 9 0RF Rx Instructions: Partial Fill upon patient request. No Action prednisone 20 mg tablet 40 mg PO DAILY 5 Days Qty: 10 0RF lidocaine [Lidoderm] 5 % adhesive patch,medicated 1 patch topical DAILY Qty: 15 0RF Rx Instructions: leave on most painful area for up to 12 hrs aspirin 81 mg Tablet,Delayed Release (Dr/Ec) 81 mg PO DAILY latanoprost 0.005 % drops 1 drp ophthalmic (eye) DAILY (DME) insulin syringe-needle U-100 1 mL 29 gauge x 1/2 syringe See Rx Instructions .ROUTE QID Qty: 10 Rx Instructions: As directed fenofibrate 160 mg tablet 160 mg PO DAILY omeprazole 20 mg capsule,delayed release(DR/EC) 20 mg PO DAILY atorvastatin 10 mg tablet 10 mg PO DAILY gabapentin 300 mg capsule 300 mg PO TID PRN lisinopril-hydrochlorothiazide 20-25 mg tablet 1 tab PO BID Humalog KwikPen Insulin 200 unit/mL (3 mL) insulin pen subcut Humalog KwikPen Insulin 200 unit/mL (3 mL) insulin pen 1 sliding scale dose subcut USEASDIRECTD azithromycin 250 mg tablet See Rx Instructions PO .COMPLEX Qty: 6 0RF Rx Instructions: For 250 mg dose pack: take 500 mg today (day 1), then 250 mg for 4 days (days 2-5) PO benzonatate 200 mg capsule 200 mg PO BEDTIME PRN (Reason: cough) Qty: 10 0RF Referrals: Jessica Acosta NP [Primary Care Provider, Internal Medicine] - 2 days Referral Note: Lumbar radiculopathy Clinical Impression: Lumbar radiculopathy Itz Beard MD, PhD [Physician, Neuro Spine] Referral Note: Lumbar radiculopathy Clinical Impression: Lumbar radiculopathy Stand Alone Forms: Work/School Release Interventions: ED Discharge Assessment Last Done: 05/28/25 16:03 Discharge Date/Time: 05/28/25 16:03 Print Language: Cameroonian
--- OUTSIDE RECORDS SUMMARY | 2025-05-28 14:46 | XMS_ITS | Patient Health Record ---
Author Organization [facility] Address [address] [place] [id number] Care Team Providers Care Wet Pour Mixer Name Role Phone Wander Reich MD Primary [...] 20 MG TAKE 1 CAPSULE BY MO [facility] EVERY DAY Oral for 90 Active Lantus 100 UNIT/ML INJECT 90 UNITS SUBCUTANEOUS TWICE DAILY Subcutaneous for 88 Active Contour Next Test - USE DIRECTED 5 TI MES DAILY In Vitro for 30 Active NovoLOG 100 UNIT/ML Injection for 32 Active Gabapentin 300 MG TAKE 1 CAPSULE BY MO [facility] THREE TIMES DAILY Oral [...] Problem Status W/U Status Risk Notes Problem 574522782 Colon cancer screening (Z12.11) Active confirmed Problem 823760399 assisted (current) use of insulin (Z79.4) Active confirmed Problem 117206079 Long-term use of aspirin therapy (Z79.82) Active confirmed Plan Of Treatment Future Test Test Name Order Date COLONOSCOPY 06/18/2023 Insurance Providers Payer Name Payer Address Payer Phone Subscriber Number Group Number Insured Name Patient Relationship to Insured Coverage Start Date Coverage End Date [facility] [address] Attn Claims DARIEL Araiza [id number] STU FORBES Self - patient is the insured Medical (General) History Medical History History ICD Code 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
--- OUTSIDE RECORDS SUMMARY | 2025-05-28 14:46 | XMS_ITS | Clinical Summary ---
Author Organization [employer] Address [address] [place] [address] [address] [place] [address] Care Team Providers Care Head Of Biology Name Role Phone Unavailable Primary Care Provider [...] Relevant to Health Maintenance Insurance DENTAL - [facility] * Guarantor: Mark Mena Account Type Relation to Patient Date of Phone Billing Address Personal/Family Self 4 [facility] [place]
--- NOTE | 2025-05-28 15:06 | PC.NURSE ---
pt refused IM toraol as im nt supposed to take NSAID's because of my diabetes. PA notified
--- NOTE | 2025-05-28 16:02 | PC.NURSE ---
PT REFUSING APAP. ST I HAVE TYLENOL IN MY POCKET, I DIDNT COME HERE FOR TEMPORARY RELIEF DARIEL Connelly notified
[2025-05-28 16:03] VITALS: BP 125/68; PULSE 89; RESP 16; TEMP 36.4; O2SAT 96
== END 2025-05-28 16:03 | disposition home or self-care (01) ==
PROVIDERS: Emergency Provider Emergency Medicine Emergency Medical Services; PCP Nurse Practitioner Family
DX: M54.16 Radiculopathy, lumbar region (principal); M79.604 Pain in right leg; M79.605 Pain in left leg; M54.50 Low back pain, unspecified; Z79.899 Other long term (current) drug therapy
CPT/HCPCS: 99283; J1885

== ENCOUNTER → 2025-06-09 13:39 | Outpatient (BNV) | payer OTHER, SELFPAY | PROVIDERS: PCP Nurse Practitioner Family; Visit Provider Internal Medicine | DX: Z01.810 Encounter for preprocedural cardiovascular examination (principal) | CPT/HCPCS: 93010 ==

== ENCOUNTER 2025-06-17 07:09 | Day surgery (SDC) | payer OTHER, SELFPAY ==
--- OUTSIDE RECORDS SUMMARY | 2025-05-18 12:57 | XMS_ITS | Clinical Summary ---
Author Organization [employer] Address [address] [place] [address] [address] [place] [address] Care Team Providers Care Sales Representative Womens Health Name Role Phone Unavailable Primary Care Provider [...] Relevant to Health Maintenance Insurance DENTAL - [facility] * Guarantor: Mark Mena Account Type Relation to Patient Date of Phone Billing Address Personal/Family Self 4 [facility] [place]
--- NOTE | 2025-06-09 | ECG_ITS ---
Test Reason : PREOP Blood Pressure : */* mmHG Vent. Rate : 74 BPM Atrial Rate : 74 BPM P-R Int : 180 ms QRS Dur : 98 ms QT Int : 404 ms P-R-T Axes : 61 -6 46 degrees QTcB Int : 448 ms Normal sinus rhythm Normal ECG When compared with ECG of 10-Feb-2016 14:03, Questionable change in QRS axis Referred By: Jessica Flynn Electronically Signed By: DEWAYNE RENTERIA
[2025-06-09 12:46] VITALS: BP 144/67; PULSE 80; RESP 17; O2SAT 98; BMI 36.5
--- NOTE | 2025-06-09 13:00 | HO.ANESPROP2 ---
Documented by User: Jessica Flynn NP 06/10/25 08:55 HPI - Anesthesia Eval Consult details Narrative: 64yo M for Bilateral L3-4, L4-5 Decompression, 06/17/25 URI 05/2025, rx'd Zpak but pt only took 1 pill. Symptoms resolved (productive cough) No CP/SOB with house work/yard work/ walking the [place] PAT: CPAP QHS, [place] [facility] [place] [facility] [place], last office visit 01/2025 DM: A1C 6.1, FBS ~ 100-200 varies widely GERD: ppi daily controls Anesthesia Pre-Procedure Meds Is the patient on any of the following meds?: GLP1/DPP4 PMFSH Active Problems Active Problems: All Active Problems URI, acute (Acute) Lumbar stenosis (Acute) Cubital tunnel syndrome on left (Acute) Cubital tunnel syndrome on right (Acute) Carpal tunnel syndrome of left wrist (Acute) Carpal tunnel syndrome of right wrist (Acute) Acute rhinosinusitis (Acute) Dyspnea on exertion (Acute) Right hand weakness (Acute) Hand weakness (Acute) Closed fracture of right thumb (Acute) PAT (obstructive sleep apnea) (Acute) Obesity (BMI 30-39.9) (Acute) Past Medical History Medical History Back pain Depression Anxiety Severe sepsis Diabetic neuropathy GERD (gastroesophageal reflux disease) Acute rhinosinusitis Venous stasis Retinopathy Neuropathy Dyspnea on exertion Right hand weakness Hand weakness Closed fracture of right thumb PAT (obstructive sleep apnea) Obesity (BMI 30-39.9) Diabetes mellitus Restless leg syndrome Hyperlipidemia Hypertension Family History Family history of problems with anesthesia: No Surgical History Surgical History Hx of wisdom tooth extraction Hx of shoulder surgery History of esophagogastroduodenoscopy (EGD) Hx of foot surgery History of carpal tunnel surgery of left wrist Hx of colonoscopy History of Problems with Anesthesia: No Social History Social History Are 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 Allergies Allergy/AdvReac Type Severity Reaction Status Date / Time pollen extracts (POLLEN) Allergy Unknown WATERY Verified 06/17/25 07:32 EYES/SNEEZING Home Medications ?Medication ?Instructions ?Recorded ?Confirmed ?Last Taken ?Type latanoprost 0.005 % eye drops 1 drp ophthalmic (eye) BEDTIME 09/29/20 06/08/25 Unknown History fenofibrate 160 mg tablet 160 mg PO DAILY 11/25/20 06/08/25 Unknown History omeprazole 20 mg capsule,delayed 20 mg PO DAILY 11/25/20 06/09/25 Unknown History release insulin syringe-needle U-100 1 mL #10 ea 04/05/21 12/03/24 Unknown History 29 gauge x 1/2 atorvastatin 10 mg tablet 10 mg PO DAILY 04/10/23 06/08/25 Unknown History aspirin 81 mg tablet,delayed 81 mg PO DAILY 07/27/23 06/08/25 06/14/25 History release gabapentin 300 mg capsule 600 mg PO TID PRN Pain 08/25/24 06/09/25 06/17/25 06:45 History insulin lispro 200 unit/mL (3 mL) 1 sliding scale dose subcut 05/26/25 06/09/25 Unknown History subcutaneous pen (Humalog KwikPen USEASDIRECTD U-200 Insulin) dasiglucagon 0.6 mg/0.6 mL 0.6 mg subcut ONCE hypoglycemia 06/08/25 06/08/25 Unknown History subcutaneous syringe (Zegalogue) insulin glargine U-300 conc 300 90 unit subcut BID 06/08/25 06/09/25 Unknown History unit/mL (3 mL) subcutaneous pen (Toujeo Max U-300 SoloStar) lisinopril 20 1 tab PO BID 06/08/25 06/08/25 Unknown History mg-hydrochlorothiazide 12.5 mg tablet tirzepatide 2.5 mg/0.5 mL 2.5 mg subcut QWEEK 0706/08/25 05/27/25 History subcutaneous pen injector (Mounjaro) Exam Height,Weight and Vital Signs: Height 6 ft 2 in Weight 128.82 kg Last Vital Signs Pulse 80 06/09/25 12:46 Resp 17 06/09/25 12:46 BP 144/67 H 06/09/25 12:46 Pulse Ox 98 06/09/25 12:46 O2 Del Method Room Air 06/09/25 12:46 Pertinent Lab Results Pertinent Lab Results: Lab Results 06/09/25 Range/Units 13:24 WBC 5.8 (4.8-10.8) X10*3/uL RBC 4.77 (4.60-5.80) X10*6/uL Hgb 14.5 (14.0-18.0) g/dl Hct 40.4 L (42.0-52.0) % MCV 84.7 (80.0-98.0) fL MCH 30.4 (27.0-33.0) pg MCHC 35.9 (31.0-36.0) g/dl RDW 14.3 (11.0-16.0) % Plt Count 163 (160-400) X10*3/uL MPV 10.4 (9.4-12.4) fL Absolute Nucleated RBC 0.000 (0.0-0.012) X10*3/uL Nucleated RBC % (auto) 0.0 (0.0-0.2) /100WBC Sodium 141 (135-145) mmol/L Potassium 4.0 (3.3-5.1) mmol/L Chloride 101 (96-108) mmol/L Carbon Dioxide 31 H (22-29) mmol/L Anion Gap 13 (12-20) BUN 14 (9-16) mg/dL Creatinine 0.93 (0.5-1.4) mg/dL Estim Creat Clear Calc 114.4 Estimated GFR > 60 Random Glucose 228 H (60-115) mg/dL Calcium 10.0 D (8.4-10.2) mg/dL Narrative Narrative: EKG 05/2025 Vent. Rate : 74 BPM Atrial Rate : 74 BPM P-R Int : 180 ms QRS Dur : 98 ms QT Int : 404 ms P-R-T Axes : 61 -6 46 degrees QTcB Int : 448 ms Normal sinus rhythm Normal ECG When compared with ECG of 10-Feb-2016 14:03, Questionable change in QRS axis Airway Mallampati Class: III TM Dist: <=3cm Neck ROM: Full Loose/Missing/Broken Teeth: Yes (1 x crowned upper front) Heart: RRR Lungs: CTAB Assessment and Plan Assessment Anesthesia Assessment: Anesthesia Plan Discussed and PAT Visit Final Anesthetic Review Family History of Problems with Anesthesia: No History of Problems with Anesthesia: No Documented by User: Elaina San MD 06/17/25 08:54 PMFSH Past Medical History Medical History Back pain Depression Anxiety Severe sepsis Diabetic neuropathy GERD (gastroesophageal reflux disease) Acute rhinosinusitis Venous stasis Retinopathy Neuropathy Dyspnea on exertion Right hand weakness Hand weakness Closed fracture of right thumb PAT (obstructive sleep apnea) Obesity (BMI 30-39.9) Diabetes mellitus Restless leg syndrome Hyperlipidemia Hypertension Surgical History Surgical History Hx of wisdom tooth extraction Hx of shoulder surgery History of esophagogastroduodenoscopy (EGD) Hx of foot surgery History of carpal tunnel surgery of left wrist Hx of colonoscopy Social History Social History Are 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 Allergies Allergy/AdvReac Type Severity Reaction Status Date / Time pollen extracts (POLLEN) Allergy Unknown WATERY Verified 06/17/25 07:32 EYES/SNEEZING Home Medications ?Medication ?Instructions ?Recorded ?Confirmed ?Last Taken ?Type latanoprost 0.005 % eye drops 1 drp ophthalmic (eye) BEDTIME 09/29/20 06/08/25 Unknown History fenofibrate 160 mg tablet 160 mg PO DAILY 11/25/20 06/08/25 Unknown History omeprazole 20 mg capsule,delayed 20 mg PO DAILY 11/25/20 06/09/25 Unknown History release insulin syringe-needle U-100 1 mL #10 ea 04/05/21 12/03/24 Unknown History 29 gauge x 1/2 atorvastatin 10 mg tablet 10 mg PO DAILY 04/10/23 06/08/25 Unknown History aspirin 81 mg tablet,delayed 81 mg PO DAILY 07/27/23 06/08/25 06/14/25 History release gabapentin 300 mg capsule 600 mg PO TID PRN Pain 08/25/24 06/09/25 06/17/25 06:45 History insulin lispro 200 unit/mL (3 mL) 1 sliding scale dose subcut 05/26/25 06/09/25 Unknown History subcutaneous pen (Humalog KwikPen USEASDIRECTD U-200 Insulin) dasiglucagon 0.6 mg/0.6 mL 0.6 mg subcut ONCE hypoglycemia 06/08/25 06/08/25 Unknown History subcutaneous syringe (Zegalogue) insulin glargine U-300 conc 300 90 unit subcut BID 06/08/25 06/09/25 Unknown History unit/mL (3 mL) subcutaneous pen (Toujeo Max U-300 SoloStar) lisinopril 20 1 tab PO BID 06/08/25 06/08/25 Unknown History mg-hydrochlorothiazide 12.5 mg tablet tirzepatide 2.5 mg/0.5 mL 2.5 mg subcut QWEEK 06/08/25 06/08/25 05/27/25 History subcutaneous pen injector (Mounjaro) Assessment and Plan Final Anesthetic Review NPO: Yes ASA Class: III Final Preanesthetic Review: Meds/Allgs Chart Reviewed, Consent Obtained/Reviewed and Anes Risks/Benef Reviewed Patient Risk: Intermediate Procedure Risk: Intermediate Anesthetic Plan Anesthetic Plan: GA Disposition: Standard PACU
[2025-06-09 14:07] LABS: Hematocrit 40.4 % (42.0-52.0); Hemoglobin 14.5 g/dl (14.0-18.0); Mean Corpuscular HGB Conc 35.9 g/dl (31.0-36.0); Mean Corpuscular Hemoglobin 30.4 pg (27.0-33.0); Mean Corpuscular Volume 84.7 fL (80.0-98.0); NRBC Abs Auto 0.000 X10*3/uL (0.0-0.012); NRBC Pct Auto 0.0 /100WBC (0.0-0.2); Platelet Count 163 X10*3/uL (160-400); Red Blood Count 4.77 X10*6/uL (4.60-5.80); White Blood Count 5.8 X10*3/uL (4.8-10.8)
[2025-06-09 14:55] LABS: Anion Gap 13 (12-20); Blood Urea Nitrogen 14 mg/dL (9-16); Calcium 10.0 mg/dL (8.4-10.2); Carbon Dioxide 31 mmol/L (22-29); Chloride 101 mmol/L (96-108); Creatinine Clr Calc Pharmacy 114.4; Estimated Glomerular Filt Rate > 60; Potassium 4.0 mmol/L (3.3-5.1); Sodium 141 mmol/L (135-145)
--- NOTE | 2025-06-16 13:33 | MHC.SHP ---
Pre-Procedural Eval Section A - 24 Hr Update-Section A only Date of Service: 06/17/25 Section B - Complete if H&P > 30 days Chief Complaint: Spinal stenosis, lumbar region without neurogenic Allergies: Allergies Allergy/AdvReac Type Severity Reaction Status Date / Time pollen extracts (POLLEN) Allergy Unknown WATERY Verified 05/28/25 13:34 EYES/SNEEZING Review of Systems Sugical H&P ROS: Negative: Constitution, Cardiovascular, Respiratory, Neurological, Psychiatric, Hem-Onc, Allergic/Immunologic, Gastrointestinal, Genitourinary, Musculoskeletal, Integumentary, Endocrine and Eyes/Ears/Nose/Throat Exam Surgical H&P Exam: Not Evaluated: HEENT, Not Evaluated: Heart, Not Evaluated: Lungs, Not Evaluated: Extremities, Not Evaluated: Abdomen, Not Evaluated: Skin and Not Evaluated: Neurological Exam Comment: The patient is awake, alert, no acute distress. Proposed surgical incision site is clean, dry, no signs of recent trauma. Plan Diagnosis/Plan: Unchanged I have reviewed the history and physical and performed a pertinent physical examination on my patient. No changes have occurred unless specified. Plan remains the same, left-sided approach for bilateral L3-4 and L4-5 decompression Time Spent With Patient Time: Total time managing care of this patient today _7___ minutes.
[2025-06-17] VITALS (9 sets, daily range): BP systolic 143–168; BP diastolic 67–85; PULSE 78–87; RESP 13–18; TEMP 36.1–36.4; O2SAT 96–99; BMI 35.7
--- NOTE | ~2025-06-17 | FL_ITS ---
EXAMINATION: FL GUIDANCE ONLY HISTORY: L3-5 DECOMPRESSION COMPARISON: Correlation is made with plain films of the lumbar spine dated 04/29/2025. TECHNIQUE: Fluoroscopy time: 5.6 seconds. Cumulative Dose: 4.6873 mGy. DAP: 1.9846 mGym2 Images: 1. FINDINGS: A single fluoroscopic spot film of the lumbar spine in the lateral projection demonstrates a probe directed toward the L4-5 intervertebral disc space from a posterior approach. FL/FL guidance in OR IMPRESSION: Fluoroscopy during procedure. Please see procedure report for additional information. Electronically signed by: Wander Burdick MD 06/17/2025 01:13 PM EDT
[2025-06-17] MEDS: Lactated Ringers 1,000 ML 100 ML IVCONT (07:58)
[2025-06-17 08:08] LABS: Glucose, Whole Blood 201 mg/dL (60-115)
--- NOTE | 2025-06-17 08:47 | PC.NURSE ---
pt has open areas to both lower leg pepe areas that are wrapped
--- NOTE | 2025-06-17 12:37 | W.PM.OPN ---
Operative Note Operative Note Date of Service: 06/17/25 Narrative: Preoperative Diagnosis: L3-4, L4-5 bilateral spinal stenosis/lateral recess stenosis/neural foraminal stenosis Operation: L3-4, L4-5 bilateral Laminotomy, Partial facetectomy and foraminotomy with use of microscope Consent Informed Consent was obtained for this operation. I have explained the nature, purpose and benefits of the operation. I have discussed the risks and benefit of the operation including possible complications or adverse events with patient/family. Alternative(s) were discussed with the patient with their relative benefits and risks as well as the consequences of not accepting the operation were included in obtaining consent. Surgeon: TONI DIAZ MD, PHD Procedure Assisted By: Mark Marquez Description of Procedure This patient is suffering from neurogenic claudication. MRI shows severe spinal stenosis L3-4 and L4-5. He was offered a L3-4 L4-5 decompression through a left-sided approach.. The patient was offered a decompression. The procedure complications were explained. The patient was consented. The patient was brought to the operating room and endotracheally intubated. The patient was turned in prone position on the Franki frame. Prep and drape was done followed by timeout. The Physician assistant research scientist provided access. A mid lumbar incision was made followed by release of the paravertebral muscle on the left side to expose the L3-L5 lamina and facet joints. An intraoperative x-ray was obtained to confirm the correct level. The microscope was brought in. I took over the procedure. The high-speed drill was used to do a L3-4 laminotomy until flavum ligament was reached. A #2 Kerrison was used to expand the laminotomy near flush to the pedicles and to include a partial facetectomy. The flavum ligament was opened and resected with a #3 Kerrison to decompress the underlying thecal sac. The flavum ligament was removed to decompress the lateral recess and the exiting L4 nerve root. The patient was turned contralaterally. The spinous processes undercut and and this way I was able to reach the contralateral side. More ligament was removed to decompress the thecal sac. Nerve hook was used to palpate the contralateral pedicle and nerve root. Then attention was turned to the L4-5 level. A left L4-5 laminotomy was done with a partial facetectomy. The hypertrophied flavum ligament was over the resected to expose the underlying thecal sac and exiting L5 nerve root. The L5 nerve root was decompressed of its trajectory. Then the spinous process was undercut. Flavum ligament was resected to the contralateral side to decompress the right side as well. A long nerve hook could be easily passed along the medial side of the pedicles as a sign of adequate decompression. Surgery took longer is anticipated due to the patient's habitus. The microscope was removed. Hemostasis was done. The physician assistant research scientist close the Incision in 2 layers. Steri-Strips were used to approximate incision. An OpSite with Tegaderm was used to cover the incision. All sponge needle counts were correct. Patient was extubated and transported in stable is to recovery room. Anesthesia: General Estimated Blood Loss (ml): 200 cc Complications: None Duration of Surgery: 2 hours Postoperative Plan: Discharge to home
--- NOTE | 2025-06-17 12:48 | PM.DS ---
DS: Providers Provider Date of Service: 06/17/25 Date of discharge: 06/17/25 Primary care physician: Jessica Acosta NP DS: Summary Time Attestation Discharge Coordination Time (in mins): 12 Quality: Safe Use of Opioids Does Pt have an Active Cancer Diagnosis on the Problem List?: No Quality: Stroke Does the patient have a stroke diagnosis?: No Physical Exam Vital Signs: Vital Signs: Last Vital Signs Temp 96.9 F 06/17/25 07:42 Pulse 78 06/17/25 07:42 Resp 16 06/17/25 07:42 BP 160/85 H 06/17/25 07:42 Pulse Ox 98 06/17/25 07:42 O2 Del Method Room Air 06/17/25 07:42 BMI result Body Mass Index 35.7 DS: Data Data Completed and Pending Labs on day of discharge: Laboratory Results - last 24 hr 06/17/25 08:00 POC Glucose 201 H Discharge Plan Discharge Patient Disposition: Home, Self-Care Referrals: Jessica Acosta NP [Primary Care Provider, Internal Medicine] - 1 Week Discharge Medications: Continued oxycodone 5 mg tablet 5 mg PO Q8H PRN (Reason: pain) Qty: 9 0RF Rx Instructions: Partial Fill upon patient request. lisinopril-hydrochlorothiazide 20-12.5 mg tablet 1 tab PO BID insulin glargine U-300 conc [Toujeo Max U-300 SoloStar] 300 unit/mL (3 mL) insulin pen 90 unit SUBCUT BID Zegalogue Syringe 0.6 mg/0.6 mL syringe 0.6 mg subcut ONCE Mounjaro 2.5 mg/0.5 mL pen injector 2.5 mg subcut QWEEK latanoprost 0.005 % drops 1 drp ophthalmic (eye) BEDTIME (DME) insulin syringe-needle U-100 1 mL 29 gauge x 1/2 syringe See Rx Instructions .ROUTE QID Qty: 10 Rx Instructions: As directed fenofibrate 160 mg tablet 160 mg PO DAILY omeprazole 20 mg capsule,delayed release(DR/EC) 20 mg PO DAILY atorvastatin 10 mg tablet 10 mg PO DAILY gabapentin 300 mg capsule 600 mg PO TID PRN (Reason: Pain) Humalog KwikPen Insulin 200 unit/mL (3 mL) insulin pen 1 sliding scale dose subcut USEASDIRECTD Held aspirin 81 mg Tablet,Delayed Release (Dr/Ec) 81 mg PO DAILY Hold Instructions: Resume on 06/22/25. Discharge Orders: Discharge Order (Routine); Ordered 06/17/25 Ordered By: Sin Sharma Diet: Advance to usual diet Activity on Discharge: As tolerated Activity Restrictions/Additional Instructions: After your spinal surgery we ask you to observe the following restrictions/guidelines: Activity: It is normal to feel some discomfort as you increase your activity, but that will improve with time. We ask you avoid heavy lifting or acitivities that cause pain. As a general rule, 8lbs is a safe limit for lifting right after surgery. Walk as much as you feel comfortable but not to exhaustion. You will feel extra tired the first few days after surgery. Stay well hydrated. It is OK to walk up and down stairs You may return to driving when you are off narcotics (such as vicodin, oxycodone, dilaudid, etc), and you are back to normal functional capacity. If you have any concerns please check with office before driving. Return to work is specific to each patient and each surgery, so please speak with your doctor/PA at first follow up. Please bring paperwork such as FMLA at that time if you need it filled out. Medications: YOU MAY RESUME THE OXYCODONE 5 MG THAT YOU HAVE AT HOME. IF YOU REQUIRE REFILL HE CAN REACH OUT TO OUR OFFICE. We recommend you take 1,000mg Tylenol every 8 hours for the first few weeks after surgery, if you do not have any liver issues and can tolerate this medication. Do not exceed 4,000mg daily. We will give you a short supply of narcotics after surgery (usually one weeks worth). If you need more please call the office but do not use more than prescribed. You will need to give our office 48 hours notice if you need narcotics refilled and we do not fill narcotics on weekends or evenings. If you are on a narcotic, it is a good idea to take a stool softener such as colace or senna to avoid constipation If you take blood thinner such as aspirin, Plavix, Coumadin, Effient, Eliquis etc for conditions such as Afib, DVT, Pulmonary embolus, coronary disease, stents etc please speak with your surgeon about specific details as to when you can resume these medications. You can resume NSAIDs on post op day 1 (eg: Motrin, Naproxen, etc). Follow up: Please call the office, , after surgery to arrange a 3 week follow up for wound check. Wound Care: You may remove your dressing on the first day after surgery. ?You may ?leave open to air. Please do not remove the steri strips underneath. they will fall off on their own in one week. IT IS NORMAL FOR THE WOUND TO OOZE OR BE BLOODY FOR A FEW DAYS AFTER SURGERY. ?IF THIS HAPPENS JUST PLACE NEW DRESSING OVER IT TO AVOID STAINING CLOTHES. You may shower on post op day # 1 We ask that you do not let the water soak the wound. If it does get wet, just towel dry lightly. Please do not scrub your incision or place any type of chemical/ointment on the wound. No tub baths, pools or jacuzzis for one month. If you have any leaking or redness from your wound, or fevers, please call the office. Print Language: Sinhala
--- NOTE | 2025-06-17 15:30 | PC.NURSE ---
PATIENT GIVEN DISCHARGE PAPERS. PATIENT IS TAKING A SHUTTLE BUS FROM [facility]. THIS RN CORTEX'D DR. DIAZ TO SEE IF THAT WAS APPROPRIATE AND DR. KAISER'S RESPONSE WAS SURE . THIS RN ALSO HAD ADOLFO HERRERA, DIRECTOR COME TO THE RI AREA TO APPROVE THE SHUTTLE WELL AND TO SPEAK WITH THE PATIENT. DR. DIAZ OR ONE THE HIS PA'S TO CONTACT PATIENT VIA PHONE.
== END 2025-06-17 15:20 | disposition home or self-care (01) ==
PROVIDERS: Nurse Practitioner; PCP Nurse Practitioner Family; Visit Provider Neurological Surgery
PROC: (CPT 63047; principal; 2025-06-17 09:30)
DX: M48.062 Spinal stenosis, lumbar region with neurogenic claudication (principal); I10 Essential (primary) hypertension; E78.5 Hyperlipidemia, unspecified; E11.40 Type 2 diabetes mellitus with diabetic neuropathy, unspecified; K21.9 Gastro-esophageal reflux disease without esophagitis; E66.01 Morbid (severe) obesity due to excess calories; Z68.36 Body mass index [BMI] 36.0-36.9, adult; Z79.4 Long term (current) use of insulin; Z79.85 Long-term (current) use of injectable non-insulin antidiabetic drugs; Z79.82 Long term (current) use of aspirin; Z79.899 Other long term (current) drug therapy
CPT/HCPCS: 63047; 63048; 36415; 80048; 82947; 85027; 93005; J0131; J0690; J2003; J2405; J2704; J3010

== ENCOUNTER → 2025-06-17 07:09 | Outpatient (BNV) | payer OTHER, SELFPAY | PROVIDERS: PCP Nurse Practitioner Family; Visit Provider Neurological Surgery | DX: M48.062 Spinal stenosis, lumbar region with neurogenic claudication (principal) | CPT/HCPCS: 63047; 63048; 99499 ==

== ENCOUNTER 2025-07-03 14:32 | Emergency (ER) | payer OTHER, SELFPAY ==
--- NOTE | 2025-07-03 14:36 | ED.GENADULT ---
HPI - General Adult General Chief complaint: Back Pain/Injury Stated complaint: Back Pain Recent Surgery 2 Weeks Ago Time Seen by Provider: 07/03/25 18:53 Related Data Home Medications ?Medication ?Instructions ?Recorded ?Confirmed latanoprost 0.005 % eye drops 1 drp ophthalmic (eye) BEDTIME 09/29/20 06/08/25 fenofibrate 160 mg tablet 160 mg PO DAILY 11/25/20 06/08/25 omeprazole 20 mg capsule,delayed 20 mg PO DAILY 11/25/20 06/09/25 release insulin syringe-needle U-100 1 mL #10 ea 04/05/21 12/03/24 29 gauge x 1/2 atorvastatin 10 mg tablet 10 mg PO DAILY 04/10/23 06/08/25 aspirin 81 mg tablet,delayed 81 mg PO DAILY 07/27/23 06/08/25 release Held on 06/17/25. Instructions: Resume on 06/22/25. gabapentin 300 mg capsule 600 mg PO TID PRN Pain 08/25/24 06/09/25 insulin lispro 200 unit/mL (3 mL) 1 sliding scale dose subcut 05/26/25 06/09/25 subcutaneous pen (Humalog KwikPen USEASDIRECTD U-200 Insulin) dasiglucagon 0.6 mg/0.6 mL 0.6 mg subcut ONCE hypoglycemia 06/08/25 06/08/25 subcutaneous syringe (Zegalogue) insulin glargine U-300 conc 300 90 unit subcut BID 06/08/25 06/09/25 unit/mL (3 mL) subcutaneous pen (Toujeo Max U-300 SoloStar) lisinopril 20 1 tab PO BID 06/08/25 06/08/25 mg-hydrochlorothiazide 12.5 mg tablet tirzepatide 2.5 mg/0.5 mL 2.5 mg subcut QWEEK 06/08/25 06/08/25 subcutaneous pen injector (Maura) Previous Rx's ?Medication ?Instructions ?Recorded oxycodone 5 mg tablet 5 mg PO Q8H PRN pain #30 tabs 06/30/25 oxycodone 5 mg tablet 5 mg PO Q8H PRN pain #30 tabs 07/03/25 Allergies Allergy/AdvReac Type Severity Reaction Status Date / Time pollen extracts (POLLEN) Allergy Unknown WATERY Verified 07/03/25 14:38 EYES/SNEEZING PMFSH Past Medical History Medical History Back pain Depression Anxiety Severe sepsis Diabetic neuropathy GERD (gastroesophageal reflux disease) Acute rhinosinusitis Venous stasis Retinopathy Neuropathy Dyspnea on exertion Right hand weakness Hand weakness Closed fracture of right thumb PAT (obstructive sleep apnea) Obesity (BMI 30-39.9) Diabetes mellitus Restless leg syndrome Hyperlipidemia Hypertension Surgical History Hx of wisdom tooth extraction Hx of shoulder surgery History of esophagogastroduodenoscopy (EGD) Hx of foot surgery History of carpal tunnel surgery of left wrist Hx of colonoscopy Social History Social History Are you a primary care tech to a significant other at home: Yes (to mother who is 89 yr old) Do you presently have visiting nurse or other home services: No Patient Tobacco Use Status: Never used Tobacco Advance Directives: No Advance Directives Information Provided: No Current occupation: Right Handed Physical Exam ED Vital Signs: BMI result Body Mass Index 35.3 Course Course Course Narrative: RME performed by Corinne Galloway PA-C. Patient is a 65 year old assigned male at presenting to the emergency department with low back pain. Patient states that his pain radiates from his low back all the way down to his left foot and down the entire left side. Patient states that 2 weeks ago had a spinal surgery and was told by the spine team that he can no longer get oxycodone because his insurance won't pay for it anymore. Detailed physical exam and review of systems are deferred to the knitting tester. Patient states that he is only here for pain control with oxycodone and if we cannot facilitate that - there is no reason for him to be here . Patient placed back in the waiting room pending room availability. Patient left the department without completing treatment. Patient's limited physical examination performed in triage showed a non-toxic individual walking with a rollater type walker. Discharge Plan Discharge Clinical Impression: Back pain Patient Disposition: Left W/O Completing Treatment Prescriptions: No Action oxycodone 5 mg tablet 5 mg PO Q8H PRN (Reason: pain) Qty: 30 0RF Rx Instructions: Partial Fill upon patient request. oxycodone 5 mg tablet 5 mg PO Q8H PRN (Reason: pain) Qty: 30 0RF Rx Instructions: Partial Fill upon patient request. aspirin 81 mg Tablet,Delayed Release (Dr/Ec) 81 mg PO DAILY lisinopril-hydrochlorothiazide 20-12.5 mg tablet 1 tab PO BID insulin glargine U-300 conc [Toujeo Max U-300 SoloStar] 300 unit/mL (3 mL) insulin pen 90 unit SUBCUT BID Zegalogue Syringe 0.6 mg/0.6 mL syringe 0.6 mg subcut ONCE Mounjaro 2.5 mg/0.5 mL pen injector 2.5 mg subcut QWEEK latanoprost 0.005 % drops 1 drp ophthalmic (eye) BEDTIME (DME) insulin syringe-needle U-100 1 mL 29 gauge x 1/2 syringe See Rx Instructions .ROUTE QID Qty: 10 Rx Instructions: As directed fenofibrate 160 mg tablet 160 mg PO DAILY omeprazole 20 mg capsule,delayed release(DR/EC) 20 mg PO DAILY atorvastatin 10 mg tablet 10 mg PO DAILY gabapentin 300 mg capsule 600 mg PO TID PRN (Reason: Pain) Humalog KwikPen Insulin 200 unit/mL (3 mL) insulin pen 1 sliding scale dose subcut USEASDIRECTD Discharge Date/Time: 07/03/25 20:42
[2025-07-03 14:37] VITALS: BP 154/67; PULSE 87; RESP 18; TEMP 37.1; O2SAT 98; BMI 35.3
--- OUTSIDE RECORDS SUMMARY | 2025-07-03 18:06 | XMS_ITS | Patient Health Record ---
Author Organization [facility] Address [address] [place] [id number] Care Team Providers Care Veterinary Surgery Technician Name Role Phone Wander Reich MD Primary Care Provider Unavailab Hitesh uGzmán Jr Unavailable [phone] Allergies Allergen (clinical drug ingredient) Drug/Non Drug [...] 20 MG TAKE 1 CAPSULE BY [facility] EVERY DAY Oral for 90 Active Lantus 100 UNIT/ML INJECT 90 UNITS SUBCUTANEOUS TWICE DAILY Subcutaneous for 88 Active Contour Next Test - USE DIRECTED 5 TI MES DAILY In Vitro for 30 Active NovoLOG 100 UNIT/ML Injection for 32 Active Gabapentin 300 MG TAKE 1 CAPSULE BY [facility] THREE TIMES DAILY Oral for 30 Active [...] Problem Status W/U Status Risk Notes Problem 660378240 Colon cancer screening (Z12.11) Active confirmed 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 (Z79.4) Active confirmed Problem 532875656 Long-term use of aspirin therapy (Z79.82) Active confirmed Plan Of Treatment Future Test Test Name Order Date COLONOSCOPY 06/18/2023 Insurance Providers Payer Name Payer Address Payer Phone Subscriber Number Group Number Insured Name Patient Relationship to Insured Coverage Start Date Coverage End Date [facility] [address] Attn Claims DARIEL Araiza [id number] STU FORBES Self - patient is the insured Medical (General) History Medical History History ICD Code 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
== END 2025-07-03 20:42 | disposition left against medical advice (07) ==
PROVIDERS: Emergency Provider Emergency Medicine; PCP Nurse Practitioner Family
DX: M54.50 Low back pain, unspecified (principal); Z53.21 Procedure and treatment not carried out due to patient leaving prior to being seen by health care provider
CPT/HCPCS: 99281

== ENCOUNTER 2025-07-08 15:05 | Outpatient (AMB) | payer OTHER, SELFPAY ==
--- OUTSIDE RECORDS SUMMARY | 2025-07-08 15:07 | XMS_ITS | Patient Health Record ---
Author Organization [facility] Address [address] [place] [id number] Care Team Providers Care Baseball Coach Name Role Phone Wander Reich MD Primary [...] 20 MG TAKE 1 CAPSULE BY MO [facility] EVERY DAY Oral for 90 Active Lantus 100 UNIT/ML INJECT 90 UNITS SUBCUTANEOUS TWICE DAILY Subcutaneous for 88 Active Contour Next Test - USE DIRECTED 5 TI MES DAILY In Vitro for 30 Active NovoLOG 100 UNIT/ML Injection for 32 Active Gabapentin 300 MG TAKE 1 CAPSULE BY MO [facility] THREE TIMES DAILY Oral for [...] Problem Status W/U Status Risk Notes Problem 240144035 Colon cancer screening (Z12.11) Active confirmed Problem 284610094 assisted (current) use of insulin (Z79.4) Active confirmed Problem 468543970 Long-term use of aspirin therapy (Z79.82) Active confirmed Plan Of Treatment Future Test Test Name Order Date COLONOSCOPY 06/18/2023 Insurance Providers Payer Name Payer Address Payer Phone Subscriber Number Group Number Insured Name Patient Relationship to Insured Coverage Start Date Coverage End Date [facility] [address] Attn Claims DARIEL Araiza [id number] STU FORBES Self - patient is the insured Medical (General) History Medical History History ICD Code 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
--- OUTSIDE RECORDS SUMMARY | 2025-07-08 15:07 | XMS_ITS | Clinical Summary ---
Author Organization [employer] Address [address] [place] [address] [address] [place] [address] Care Team Providers Care Heel Attacher Wood Name Role Phone Unavailable Primary Care Provider [...] FIT DNA/Cologuard 1960 FIT 1960 FOBT 1960 Lipid Panel 1960 SDOH Screening 1960 [...] 02/22/2021, Additional history exists Influenza Vaccine (#1) 2025 DTaP/Tdap/Td Vaccines (2 - Td or [...] Relevant to Health Maintenance Insurance DENTAL - [facility]
--- NOTE | 2025-07-08 15:17 | HO.SPINEOV ---
Intake Visit Reasons: 1st post op Intake Note: Mr. Mena is here today for his 1st post-op visit. Client Development Consultant Required: No Allergies pollen extracts (POLLEN) Allergy (Unknown, Verified 07/03/25 14:38) WATERY EYES/SNEEZING Assessment & Plan Assessment & Plan (1) Status post lumbar spine surgery for decompression of spinal cord: Code(s): Z98.890 - Other specified postprocedural states Category: Medical Plan Operation: L3-4, L4-5 bilateral Laminotomy Mark is a 65 year old male who comes in today for his 1st postoperative visit after having a L3-5 lumbar decompression completed by Dr. Beard a few weeks ago. He reports that overall he has done well since his surgery, however he continues to have some left-sided shooting radicular pain. He feels his right-sided pain has completely resolved since his surgery. In addition to the radicular pain he describes some spasming type pain in his low back, that worsens with ambulation. During this visit he asked a plethora of questions regarding the postoperative healing course, all of which I answered to the best of my ability. He did raise several concerns regarding persistent nausea since he started taking oxycodone, and requested medication to help treat this. No new neurological deficits. The patient ambulates well and rises from seated position without difficulty. His posterior incision site is closed and well healing, with minimal edema and no notable erythema or fluctuance. Mark should follow up with 1 of us in 6 weeks for his 2nd postoperative appointment. I will send in a prescription for baclofen to help treat the muscle spasms in his low back that he continues to have. In addition to this I will send in a prescription for Zofran to help treat his nausea. Sin Beard MD,PhD [facility] Medications: New baclofen 10 mg PO TID PRN 30 tabs 0RF muscle spasms ondansetron HCl 4 mg PO Q8H 20 tabs 0RF nausea Discontinued oxycodone Partial Fill upon patient request. Discontinued Reason: Doctor's Order 5 mg PO Q8H PRN 30 tabs 0RF pain Coding Level of Care Code Global (96738) Diagnoses Status post lumbar spine surgery for decompression of spinal cord Z98.890
== END 2025-07-08 15:42 | disposition home or self-care (01) ==
LOC: HO.HNS 15:05
PROVIDERS: PCP Nurse Practitioner Family; Visit Provider Physician Assistant
DX: Z98.890 Other specified postprocedural states (principal)
CPT/HCPCS: 99024

== ENCOUNTER → 2025-07-08 15:05 | Outpatient (BNVA) | payer OTHER, SELFPAY | PROVIDERS: PCP Nurse Practitioner Family; Visit Provider Physician Assistant | DX: Z98.890 Other specified postprocedural states (principal) | CPT/HCPCS: 99212 ==

== ENCOUNTER 2025-08-11 13:44 | Outpatient (AMB) | payer OTHER, SELFPAY ==
--- NOTE | 2025-08-11 13:53 | A.OFFVIS_ITS ---
Vital Signs 08/11/25 13:57 Height 6 ft 2 in Weight 274 lb 7.608 oz BMI 35.2 BP 140/62 H Blood Pressure Location Lt brachial Position Sitting Pulse 76 Pulse Source Pulse Oximeter Pulse Oximetry (%) 96 Oxygen Delivery Method Room Air Intake Visit Reasons: Obstructive sleep apnea Intake Note: pt is here for follow up of PAT. Service Observer Required: No Allergies pollen extracts (POLLEN) Allergy (Unknown, Verified 08/11/25 14:16) WATERY EYES/SNEEZING Do you need a note to return to daycare/school/sports/work: No HPI HPI Obstructive sleep apnea: Details: Mark is 65 years old gentleman with gross obesity, round face and very narrow oropharynx. He has been on BiPAP, using it very regularly, and benefiting. His pressure setting is 19/15 cm, He has had some residual obstructive events all along. Last visit his residual AHI was 7 . He comes after 6 months for follow-up. . Weight is almost the same Recently has had spine surgery, and still has some back pain and stiffness. He still using the BiPAP very regularly up to 8-1/2 hours every night. His compliance report indicates that he still has high residual AHI, 15.6 this time. This is all due to remaining obstructive events , he does not have any central events . [facility], [facility] Medical History Back pain Depression Anxiety Severe sepsis Diabetic neuropathy GERD (gastroesophageal reflux disease) Acute rhinosinusitis Venous stasis Retinopathy Neuropathy Dyspnea on exertion Right hand weakness Hand weakness Closed fracture of right thumb PAT (obstructive sleep apnea) Obesity (BMI 30-39.9) Diabetes mellitus Restless leg syndrome Hyperlipidemia Hypertension Surgical History Hx of wisdom tooth extraction Hx of shoulder surgery History of esophagogastroduodenoscopy (EGD) Hx of foot surgery History of carpal tunnel surgery of left wrist Hx of colonoscopy Social History Are you a primary child care centre director to a significant other at home: Yes (to mother who is 89 yr old) Do you presently have visiting nurse or other home services: No Patient Tobacco Use Status: Never used Tobacco Current occupation: Right Handed Review of Systems Const All systems reviewed & are unremarkable except as noted in HPI and below Reports snoring (Controlled with CPAP) Eyes Reports no additional complaints ENT Reports no additional complaints Card Denies chest pain, Denies irregular heart rhythm, Denies leg edema and Reports dyspnea on exertion Resp Reports dyspnea on exertion and Reports snoring (Controlled with CPAP) GI Reports heartburn (Symptoms of GERD controlled with omeprazole) and Reports vomiting Reports other (BPH symptoms controlled with med) Musc Reports no additional complaints Skin/Breast Reports system reviewed and no additional complaints, except as documented Neuro Reports no additional complaints Psych Reports no additional complaints Physical Exam Vital Signs: Last Vital Signs Pulse 76 08/11/25 13:57 BP 140/62 H 08/11/25 13:57 Pulse Ox 96 08/11/25 13:57 Oxygen Delivery Method Room Air 08/11/25 13:57 BMI result Body Mass Index 35.2 Const Other: MARK HAS A VERY ROUND FACE AND A SHORT NECK. General: healthy appearing (EXCEPT FOR BEING OVERWEIGHT), comfortable, no acute distress, alert and awake Orientation/consciousness: patient oriented x3 HEENT Other: Throat is very clear and he has only mild nasal congestion . Head: Yes normal to inspection General nose exam: No nasal polyps present and No nasal discharge present Face and sinus: Yes sinuses nontender Mouth: oropharynx abnormals (Oropharynx is narrow and crowded, Mallampati class 4) Throat: Yes posterior oropharynx normal Eyes General: appearance normal, both eyes and all related structures Neck Neck: Yes normal visual inspection, Yes no lymphadenopathy, Yes trachea midline and Yes no JVD Thyroid: Thyroid normal Chest Chest palpation & inspection: normal inspection of the chest, normal palpation of entire chest wall and no tenderness Resp Other: Percussion note resonant, breath sounds slightly diminished over the bases. Both lungs are clear to auscultation. There are no crepitations wheezes or rhonchi. Cardio Palpation: normal PMI Rate: regular rate Rhythm: regular rhythm Heart sounds: no gallops and no murmurs Peripheral pulses: Peripheral pulses 2+ throughout GI Palpation (GI): Soft to palpation, nontender, No hepatosplenomegaly present, no masses and Other GI palpation findings present (Abdomen moderately obese and protuberant) Auscultation: normal bowel sounds Back/Spine/Pelvis Thoracic/Lumbar Spine: thoracic and lumbar spine normal to inspection Skin General skin exam: no rashes or lesions noted Neuro General: patient oriented x3 and no focal motor deficits Cranial nerves: Yes CN's II-XII intact bilaterally Extrem General: Yes normal to inspection, Yes no clubbing, cyanosis or edema and Yes no calf tenderness Psych Appearance: grossly normal and well kempt Speech and movement: Normal speech and movement present Results Reviewed Results Reviewed: Usage has been 100% and average usage per night 8 hours 29 minutes. No air leak. Residual AHI 15.6. No central events Assessment & Plan Assessment & Plan (1) Obesity (BMI 30-39.9): Comment: HE IS GROSSLY OBESE. BMI=35.2 Code(s): E66.9 - Obesity, unspecified Category: Medical Plan: Discussed with him and advised that he needs to start walking daily and also try to cut down the intake of calories. (2) PAT (obstructive sleep apnea): Comment: He has known diagnosis of obstructive sleep apnea for the past many years. He is very compliant, using every night for an average of 7- 8 hours per night. He sleeps very well Compliance report shows that he has residual AHI of 15.6 this is much higher than before. Code(s): G47.33 - Obstructive sleep apnea (adult) (pediatric) Category: Medical Plan: I will send request to adjust the pressure to 22/16 cm , and see if this makes a difference. Otherwise he may have to undergo CPAP titration in the sleep lab. Coding Level of Care Code Est Pt Level 3 (20011) Diagnoses Obesity (BMI 30-39.9) E66.9 PAT (obstructive sleep apnea) G47.33
[2025-08-11 13:57] VITALS: BP 140/62; PULSE 76; O2SAT 96; BMI 35.2
--- OUTSIDE RECORDS SUMMARY | 2025-08-11 17:36 | XMS_ITS | Encounter Summary ---
Author Organization [employer] Address [address] [place] [address] [address] [place] [address] Care Team Providers Care Security Alarm Technician Name Role Phone Unavailable Primary Care Provider Unavailabl e Reason for Visit * Reason Onset Date Comments medication 04/13/2023 Encounter Details Date Type Department Care Team ([facility] st Contact Info) Description 04/13/2023 Telephone [facility]ULT [facility] [address] [place] [address] Lucy Geronimo DDS [address] [place], [place] [id number] medication Social History Tobacco Use Types Packs/Day [...] 800 mg * Telephone Encounter - Madelin Erik - 04/13/2023 9:22 AM EDT Patient called [...]
--- OUTSIDE RECORDS SUMMARY | 2025-08-11 17:36 | XMS_ITS | Patient Health Record ---
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) Active confirmed Problem 715988788 Long-term use of aspirin therapy (Z79.82) Active confirmed Plan Of Treatment Future Test Test Name Order Date COLONOSCOPY 06/18/2023 Insurance Providers Payer Name Payer Address Payer Phone Subscriber Number Group Number Insured Name Patient Relationship to Insured Coverage Start Date Coverage End Date [facility] [address] Attn Claims DARIEL Araiza [id number] STU FORBES Self - patient is the insured Medical (General) History Medical History History ICD Code 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
--- OUTSIDE RECORDS SUMMARY | 2025-08-11 17:36 | XMS_ITS | Clinical Summary ---
Author Organization [employer] Address [address] [place] [address] [address] [place] [address] Care Team Providers Care Key Carrier Name Role Phone Unavailable Primary Care Provider [...] 04/13/2024 04/12/2023, 06/13 COVID-19 Vaccine ( season) 2025 10/25/2021, 03/16/2021, 02/22/2021, Additional history exists Influenza [...] Relevant to Health Maintenance Insurance DENTAL - [facility]
--- OUTSIDE RECORDS SUMMARY | 2025-08-11 17:36 | XMS_ITS | Encounter Summary ---
Author Organization [employer] Address [address] [place] [address] [address] [place] [address] Care Team Providers Care Flooring Professional Name Role Phone Unavailable Primary Care Provider Unavailabl e Encounter Details Date Type Department Care Team (Late st Contact Info) Description 04/13/2023 Orders Only [facility] ADULT DENTAL [address] [place] [address] Lucy Geronimo, DDS [address] [place] [address] Social History Tobacco Use Types Packs/Day Years [...]
== END 2025-08-11 14:27 | disposition home or self-care (01) ==
LOC: HO.HPS 13:44
PROVIDERS: PCP Internal Medicine; Visit Provider Internal Medicine
DX: E66.9 Obesity, unspecified (principal); G47.33 Obstructive sleep apnea (adult) (pediatric)
CPT/HCPCS: 99213

== ENCOUNTER → 2025-08-11 13:44 | Outpatient (BNVA) | payer OTHER, SELFPAY | PROVIDERS: PCP Internal Medicine; Visit Provider Internal Medicine | DX: G47.33 Obstructive sleep apnea (adult) (pediatric) (principal); E66.9 Obesity, unspecified | CPT/HCPCS: 99212 ==

== ENCOUNTER 2025-08-17 11:41 | Outpatient (AMB) | payer OTHER, SELFPAY ==
--- NOTE | 2025-08-17 11:49 | HO.SPINEOV ---
Intake Visit Reasons: 2nd post op Intake Note: Mr. Mena is here today for 2nd post op Pulmonologist Intensivist Required: No Allergies pollen extracts (POLLEN) Allergy (Unknown, Verified 08/17/25 11:54) WATERY EYES/SNEEZING Assessment & Plan Assessment & Plan (1) Lumbar stenosis: Code(s): M48.061 - Spinal stenosis, lumbar region without neurogenic claudication Category: Medical Plan Mr Mena is here in follow-up. He underwent lumbar decompression with good relief of his preoperative leg pain but postoperatively he has been left with the pain in his left low back in his left buttock into his left posterior thigh that remains when he stands and walks. He distinctly describes it as being different than the pain that he had before surgery but it is similar in the sense that it is only there when he is standing and walking. He thought that maybe it would go away but it has been 2 months now since his procedure and he is a bit frustrated that he is not making more progress. He has been taking Tylenol and gabapentin and that seems to make it more manageable but he wants to get to the bottom of what is causing it. He has no focal motor deficits. His wound is healed up nicely. At this point I think it is worth looking into with a lumbar MRI with and without gadolinium to see if there is any residual stenosis. If not, I will recommend he follow up with our pain management clinic as he may just be in that small percentage of people who have residual nerve pain even despite adequate decompression. Mark Beard MD, PhD [facility] Orders: Orders MR lumbar spine wo/w con Today M48.061 - Spinal stenosis, lumbar region without neurogenic claudication Coding Level of Care Code Global (83028) Diagnoses Lumbar stenosis M48.061
--- OUTSIDE RECORDS SUMMARY | 2025-08-17 14:24 | XMS_ITS | Encounter Summary ---
Author Organization [employer] Address [address] [place] [address] [address] [place] [address] Care Team Providers Care Student Assistance Counselor Name Role Phone Unavailable Primary Care Provider Unavailabl e Encounter Details Date Type Department Care Team (Late st Contact Info) Description 04/13/2023 Orders Only [facility] ADULT DENTAL [address] [place] [address] Lucy Geronimo, DDS [address] [place] [address] Social History Tobacco Use Types Packs/Day Years [...]
--- OUTSIDE RECORDS SUMMARY | 2025-08-17 14:24 | XMS_ITS | Patient Health Record ---
Author Organization [facility] Address [address] [place] [id number] Care Team Providers Care Laborer Marine Terminal Name Role Phone Wander Reich MD Primary [...] 20 MG TAKE 1 CAPSULE BY [facility] EVERY DAY Oral for 90 Active Lantus 100 UNIT/ML INJECT 90 UNITS SUBCUTANEOUS TWICE DAILY Subcutaneous for 88 Active Contour Next Test - USE DIRECTED 5 TI MES DAILY In Vitro for 30 Active NovoLOG 100 UNIT/ML Injection for 32 Active Gabapentin 300 MG TAKE 1 CAPSULE BY [facility] THREE TIMES DAILY Oral for [...] Problem Status W/U Status Risk Notes Problem 392246171 Colon cancer screening (Z12.11) Active confirmed 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.4) Active confirmed Problem 592717323 Long-term use of aspirin therapy (Z79.82) Active confirmed Plan Of Treatment Future Test Test Name Order Date COLONOSCOPY 06/18/2023 Insurance Providers Payer Name Payer Address Payer Phone Subscriber Number Group Number Insured Name Patient Relationship to Insured Coverage Start Date Coverage End Date [facility] [address] Attn Claims DARIEL Araiza [id number] STU FORBES Self - patient is the insured Medical (General) History Medical History History ICD Code 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
--- OUTSIDE RECORDS SUMMARY | 2025-08-17 14:24 | XMS_ITS | Clinical Summary ---
Author Organization [employer] Address [address] [place] [address] [address] [place] [address] Care Team Providers Care Pole Setter Name Role Phone Unavailable Primary Care Provider [...] Relevant to Health Maintenance Insurance DENTAL - [facility]
--- OUTSIDE RECORDS SUMMARY | 2025-08-17 14:24 | XMS_ITS | Encounter Summary ---
Author Organization [employer] Address [address] [place] [address] 7 [place] [address] Care Team Providers Care Cardiopulmonary Technician Name Role Phone Unavailable Primary Care Provider Unavailabl e Reason for Visit * Reason Onset Date Comments medication 04/13/2023 Encounter Details Date Type Department Care Team ([facility] st Contact Info) Description 04/13/2023 Telephone [facility] ADULT DENTAL [address] [place] [address] Lucy Geronimo DDS [address] [place], [place] [phone] medication Social History Tobacco Use Types Packs/Day [...]
== END 2025-08-17 12:28 | disposition home or self-care (01) ==
LOC: HO.HNS 11:42
PROVIDERS: PCP Internal Medicine; Visit Provider Physician Assistant
DX: M48.061 Spinal stenosis, lumbar region without neurogenic claudication (principal)
CPT/HCPCS: 99024

== ENCOUNTER → 2025-08-17 11:41 | Outpatient (BNVA) | payer OTHER, SELFPAY | PROVIDERS: PCP Internal Medicine; Visit Provider Physician Assistant | DX: M48.061 Spinal stenosis, lumbar region without neurogenic claudication (principal) | CPT/HCPCS: 99212 ==

== ENCOUNTER 2025-09-25 11:58 | Outpatient (AMB) | payer OTHER, SELFPAY ==
--- NOTE | 2025-09-25 12:05 | A.OFFVIS_ITS ---
Vital Signs 09/25/25 12:06 Height 6 ft 2 in Weight 281 lb BMI 36.1 BP 132/66 Blood Pressure Location Lt brachial Position Sitting Respiration 16 Pulse 77 Pulse Source Pulse Oximeter Pulse Oximetry (%) 96 Oxygen Delivery Method Room Air Intake Visit Reasons: Spinal stenosis Life Insurance Underwriter Required: No Allergies pollen extracts (POLLEN) Allergy (Unknown, Verified 09/25/25 12:07) WATERY EYES/SNEEZING Medication List - Last Reconciled 09/25/25 by Corinne Rodriguez LPN aspirin 81 mg PO DAILY Held on 06/17/25. Instructions: Resume on 06/22/25. atorvastatin 10 mg PO DAILY dasiglucagon (Zegalogue) 0.6 mg subcut ONCE fenofibrate 160 mg PO DAILY gabapentin 600 mg PO TID PRN insulin glargine U-300 conc (Toujeo Max U-300 SoloStar) 90 units subcut BID insulin lispro (Humalog KwikPen U-200 Insulin) 1 sliding scale dose subcut USEASDIRECTD insulin syringe-needle U-100 As directed latanoprost 0.005% 1 drp ophthalmic (eye) BEDTIME lisinopril-hydrochlorothiazide 20-12.5 mg 1 tab PO BID omeprazole 20 mg PO DAILY HPI HPI Spinal stenosis: Details: History of Present Illness The patient is a 65-year-old male presenting with persistent pain in the lower back and left buttock following lumbar decompression surgery. He underwent lumbar decompression at L3-4 and L4-5 approximately three months ago, which initially relieved gluteal and leg pain but did not alleviate the lower back and left buttock pain. The pain has persisted despite the use of acetaminophen and gabapentin, which have only made it more manageable. Prior to the surgery, the patient experienced bilateral leg pain, which worsened significantly before the summer, prompting a return to the surgeon and subsequent MRI evaluation. Post-surgery, the pain is primarily localized to the left leg and lower back, with the pain intensity fluctuating and exacerbated by walking. The patient reports that sitting alleviates the pain, while lying down eventually leads to discomfort due to restless legs. The patient has been informed by the surgeon that there is residual stenosis at L4-5, which might resolve spontaneously, although this explanation seemed questionable to him. He has not received cortisone injections previously and is considering this option despite concerns about potential side effects and the temporary nature of relief. The patient is also diabetic, with well-controlled blood sugar levels, and is aware that cortisone may cause a transient increase in glucose levels. Pain Description - Onset: Pain began post-lumbar decompression surgery, approximately three months ago. - Quality: Persistent, fluctuating intensity, exacerbated by walking, alleviated by sitting. - Location: Lower back and left buttock, radiating to the left leg. - Exacerbating factors: Walking, lying down due to restless legs. - Relieving factors: Sitting, use of acetaminophen and gabapentin. - Interference: Pain interferes with walking, causing the patient to bend over due to back discomfort. Physical Exam - Musculoskeletal: Straight leg raise test performed, no pain elicited in the back Results - MRI: Post-surgical MRI shows persistent stenosis at L4-5, despite decompression surgery. Pain Management - Affect: Pain significantly impacts ambulation and daily activities. - Analgesia: Currently using acetaminophen and gabapentin, with limited relief. - Adverse Effects: No specific adverse effects from current medications reported. - Activities of Daily Living: Pain limits walking and requires frequent rest. - Aberrant Drug Related Behaviors: No aberrant behaviors reported. [facility] Medical History Back pain Depression Anxiety Severe sepsis Diabetic neuropathy GERD (gastroesophageal reflux disease) Acute rhinosinusitis Venous stasis Retinopathy Neuropathy Dyspnea on exertion Right hand weakness Hand weakness Closed fracture of right thumb PAT (obstructive sleep apnea) Obesity (BMI 30-39.9) Diabetes mellitus Restless leg syndrome Hyperlipidemia Hypertension Surgical History Hx of wisdom tooth extraction Hx of shoulder surgery History of esophagogastroduodenoscopy (EGD) Hx of foot surgery History of carpal tunnel surgery of left wrist Hx of colonoscopy Social History Are you a primary pediatric care coordinator to a significant other at home: Yes (to mother who is 89 yr old) Do you presently have visiting nurse or other home services: No Patient Tobacco Use Status: Never used Tobacco Current occupation: Right Handed Physical Exam Vital Signs: Last Vital Signs Pulse 77 09/25/25 12:06 Resp 16 09/25/25 12:06 BP 132/66 09/25/25 12:06 Pulse Ox 96 09/25/25 12:06 Oxygen Delivery Method Room Air 09/25/25 12:06 BMI result Body Mass Index 36.1 Assessment & Plan Assessment & Plan (1) Status post lumbar spine surgery for decompression of spinal cord: Code(s): Z98.890 - Other specified postprocedural states Category: Surgical (2) Lumbar radicular pain: Code(s): M54.16 - Radiculopathy, lumbar region Category: Medical Plan Plan Patient was informed and verbally consented to the use of an ambient scribe for clinic note documentation during this visit. 1. Lumbar Radiculopathy - Plan to discuss with spine surgery team regarding potential re-operation or further decompression. - Consideration of a larger facetectomy and possible fusion at the affected level. - Schedule a left L4 transforaminal epidural steroid injection to alleviate left leg pain. 2. Lumbar Spinal Stenosis - Persistent stenosis noted on MRI, plan to consult with spine surgery for further management. - Consideration of surgical intervention if conservative measures fail. 3. Neurogenic Claudication - Symptoms include pain with ambulation, relieved by sitting. - Plan for epidural steroid injection to manage symptoms. 4. Restless Legs Syndrome - Symptoms noted at night, contributing to discomfort when lying down. - No specific management plan discussed during the visit. Discussion Notes I discussed with the patient the current findings of lumbar radiculopathy and spinal stenosis, emphasizing the persistent stenosis noted on MRI despite previous decompression surgery. We reviewed the potential benefits and risks of a left L4 transforaminal epidural steroid injection to alleviate left leg pain, and the possibility of further surgical intervention if conservative measures fail. The patient was informed about the temporary nature of cortisone relief and the potential for increased blood sugar levels due to his diabetes. Patient Instructions - Schedule a left L4 transforaminal epidural steroid injection as discussed. - Monitor blood sugar levels closely following the injection due to potential increase. - Follow up with the spine surgery team for further evaluation and management options. Coding Level of Care Code New Pt Level 4 (47902) Diagnoses Status post lumbar spine surgery for decompression of spinal cord Z98.890 Lumbar radicular pain M54.16
[2025-09-25 12:06] VITALS: BP 132/66; PULSE 77; RESP 16; O2SAT 96; BMI 36.1
--- OUTSIDE RECORDS SUMMARY | 2025-09-25 13:32 | XMS_ITS | Encounter Summary ---
Author Organization [employer] Address [address] [place] [address] [address] [place] [address] Care Team Providers Care Insert Molding Operator Name Role Phone Unavailable Primary Care Provider Unavailabl e Encounter Details Date Type Department Care Team (Late st Contact Info) Description 04/13/2023 Orders Only [facility] ADULT DENTAL [address] [place] [address] Lucy Geronimo, DDS [address] [place] [address] Social History Tobacco Use Types Packs/Day Years [...]
--- OUTSIDE RECORDS SUMMARY | 2025-09-25 13:32 | XMS_ITS | Patient Health Record ---
Author Organization [facility] Address [address] [place] [id number] Care Team Providers Care Civil Division Commander Deputy Sheriff Name Role Phone Wander Reich MD Primary Care Provider UnavailHitesh Cruz Jr Unavailable [phone] Allergies Allergen (clinical drug ingredient) Drug/Non Drug Allergy documented on EMR Reaction Allergy Type Onset Date Status Pollen Pollen Unknown Allergy Active Reason For Referral No Information Medications Medication SIG (Take, Route, Frequency, Duration) Notes Start Date End Date Status Atorvastatin Calcium 10 MG TAKE 1 TABLET BY MOUTH EVERY DAY Diagnosis Unavailable Oral; Duration: 30 Active Betamethasone Dipropionate Aug 0.05 % External; Duration: 21 Activ e Omeprazole 20 MG TAKE 1 CAPSULE BY [facility] EVERY DAY Oral; Duration: 90 Active Lantus 100 UNIT/ML INJECT 90 UNITS SUBCUTANEOUS TWICE DAILY Subcutaneous; Duration: 88 Active Contour Next Test - USE DIRECTED 5 TI MES DAILY In Vitro; Duration: 30 Active NovoLOG 100 UNIT/ML Injection; Duration: 32 Active Gabapentin 300 MG TAKE 1 CAPSULE BY [facility] THREE TIMES DAILY Oral; Duration: 30 Active Fenofibrate 160 MG Oral; Duration: 90 Active Lisinopril 20 MG Oral; Duration: 90 Active Aspirin 81 81 MG 1 tablet Orally Once a day; Duration: 30 day(s) Active MiraLax (colon prep) 17 GM/SCOOP mixed with Gatorade or Crystal Light Orally begin at 5:00 p.m. the day before the procedure; Duration: 1 day 06/18/2023 Active Easy Touch Insulin Syringe 29G X 1/2 1 ML USE DIRECTED FIVE TIMES DAILY; Duration: 90 Active Immunizations Vaccine Route Administration Date [...] Problem Status W/U Status Risk Notes Problem Colon cancer screening (305823469) Colon cancer screening (Z12.11) Active confirmed Problem Long-term current use of insulin (032385546) rn long term care (current) use of insulin (Z79.4) Active confirmed Problem Long-term current use of antiplatelet drug (147751193285073) Long-term use of aspirin therapy (Z79.82) Active confirmed Plan Of Treatment Future Test Test Name Order Date COLONOSCOPY 06/18/2023 Insurance Providers Payer Name Payer Address Payer Phone Subscriber Number Group Number Insured Name Patient Relationship to Insured Coverage Start Date Coverage End Date [facility] [address] Attn Claims DARIEL Araiza [id number] STU FORBES Self - patient is the insured Medical (General) History Medical History History ICD Code 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
--- OUTSIDE RECORDS SUMMARY | 2025-09-25 13:32 | XMS_ITS | Clinical Summary ---
Author Organization [employer] Address [address] [place] [address] 7t [place] [address] Care Team Providers Care Charge Account Identification Clerk Name Role Phone Unavailable Primary Care Provider [...] Relevant to Health Maintenance Insurance DENTAL - [facility]
--- OUTSIDE RECORDS SUMMARY | 2025-09-25 13:32 | XMS_ITS | Encounter Summary ---
Author Organization [employer] Address [address] [place] [address] 7 [place] [address] Care Team Providers Care Assistant Golf Coach Name Role Phone Unavailable Primary Care Provider Unavailabl e Reason for Visit * Reason Onset Date Comments medication 04/13/2023 Encounter Details Date Type Department Care Team ([facility] st Contact Info) Description 04/13/2023 Telephone [facility] ADULT DENTAL [address] [place] [address] Lucy Geronimo DDS [address] [place], [place] [phone] medication Social History Tobacco Use Types Packs/Day [...]
== END 2025-09-25 12:32 | disposition home or self-care (01) ==
PROVIDERS: PCP Nurse Practitioner Family; Visit Provider Internal Medicine
DX: M54.16 Radiculopathy, lumbar region (principal); Z98.890 Other specified postprocedural states
CPT/HCPCS: 99204

== ENCOUNTER → 2025-09-25 11:58 | Outpatient (BNVA) | payer OTHER, SELFPAY | PROVIDERS: PCP Nurse Practitioner Family; Visit Provider Internal Medicine | DX: M48.062 Spinal stenosis, lumbar region with neurogenic claudication (principal); M54.16 Radiculopathy, lumbar region; G25.81 Restless legs syndrome; Z98.890 Other specified postprocedural states | CPT/HCPCS: 99202 ==

== ENCOUNTER 2025-10-19 13:41 | Outpatient (AMB) | payer OTHER, SELFPAY ==
--- NOTE | 2025-10-19 14:01 | HO.SPINEOV ---
Intake Visit Reasons: pain after sx Intake Note: Mr. Mena is here today c/o pain after surgery. Chain Testing Machine Operator Required: No Allergies pollen extracts (POLLEN) Allergy (Unknown, Verified 10/19/25 14:01) WATERY EYES/SNEEZING Assessment & Plan Assessment & Plan (1) Lumbar radicular pain: Code(s): M54.16 - Radiculopathy, lumbar region Category: Medical Plan Mark comes in today for a subsequent follow up appointment to discuss a recent 2nd opinion that he had regarding surgery. To recap he had an L3-5 lumbar decomp[address] completed by Dr. Beard on 06/17/25. The bulk of his back pain seem to have significantly lessened after surgery, however he was left with residual low grade left low back pain and pain in his left buttock that shoots into his left posterior thigh. He obtained MRI imaging after his last appointment. He subsequently took his repeat MRI to [facility] for a 2nd opinion and was offered a full laminectomy L3-[address] Urias after he informed the patient that he still had severe compression at these levels. To recap regarding this issue Dr. Beard did review the patient's most recent MRI imaging completed in August at [place] and recommended that the patient undergo conservative treatment such as physical therapy and injections to see if the stenosis will improve as he heals from surgery. The plan was to have him follow up with us regarding potential further recommendations once he is a bit farther out from surgery so we can see how he progressed after healing for a few months after his procedure. He asked why we did not do a laminectomy, and asked me to show him on our spine models exactly the type of surgery that we did. Utilizing the spine models in office I walks the patient through a lumbar decompression via laminotomy L3-4, L4-5. I explained to him the risks/benefits of full laminectomy surgery. After a lengthy discussion regarding this the patient reported that he we will be following through with our recommendations of continued conservative management and will get his scheduled injection with our colleagues in pain management. If his pain persists after his injections he reported that he will be calling the office to try and follow up with Dr. Beard regarding this. Sin Beard MD,PhD [facility] Coding Level of Care Code Global (25077) Diagnoses Lumbar radicular pain M54.16
--- OUTSIDE RECORDS SUMMARY | 2025-10-19 18:30 | XMS_ITS | Encounter Summary ---
Author Organization [employer] Address [address] [place] [address] 7 [place] [address] Care Team Providers Care Log Operations Coordinator Name Role Phone Unavailable Primary Care Provider Unavailabl e Reason for Visit * Reason Onset Date Comments medication 04/13/2023 Encounter Details Date Type Department Care Team ([facility] st Contact Info) Description 04/13/2023 Telephone [facility] ADULT DENTAL [address] [place] [address] Lucy Geronimo DDS [address] [place], [place] [phone] medication Social History Tobacco Use Types Packs/Day [...]
--- OUTSIDE RECORDS SUMMARY | 2025-10-19 18:30 | XMS_ITS | Encounter Summary ---
Author Organization [employer] Address [address] [place] [address] [address]t [place] [address] Care Team Providers Care Human Performance Consultant Name Role Phone Unavailable Primary Care Provider Unavailabl e Encounter Details Date Type Department Care Team (Late st Contact Info) Description 04/13/2023 Orders Only [facility] ADULT DENTAL [address] [place] [address] Lucy Geronimo, DDS [address] [place] [address] Social History Tobacco Use Types Packs/Day Years [...]
--- OUTSIDE RECORDS SUMMARY | 2025-10-19 18:30 | XMS_ITS | Clinical Summary ---
Author Organization [employer] Address [address] [place] [address] [address] [place] [address] Care Team Providers Care Roller Mechanic Name Role Phone Unavailable Primary Care Provider [...] Relevant to Health Maintenance Insurance DENTAL - [facility] * Guarantor: Mark Mena Account Type Relation to Patient Date of Phone Billing Address Personal/Family Self [address] [facility] [place]
== END 2025-10-19 14:43 | disposition home or self-care (01) ==
LOC: HO.HNS 13:41
PROVIDERS: PCP Nurse Practitioner Family; Visit Provider Physician Assistant
DX: M54.16 Radiculopathy, lumbar region (principal)
CPT/HCPCS: 99213

== ENCOUNTER → 2025-10-19 13:41 | Outpatient (BNVA) | payer OTHER, SELFPAY | PROVIDERS: PCP Nurse Practitioner Family; Visit Provider Physician Assistant | DX: M54.16 Radiculopathy, lumbar region (principal) | CPT/HCPCS: 99212 ==

== ENCOUNTER 2025-10-19 17:00 | Outpatient (RCR) | payer OTHER, SELFPAY ==
--- NOTE | 2025-10-12 13:56 | MHC.PT.EP ---
[facility] [place] Office [place] Office [place] Office [address] Joycelyn Simpson [address] [phone] F: [phone] F: [phone] F: [phone] F: [phone] Physical Therapy Plan of Care Date of Evaluation: 10/12/25 Date of Surgery: 06/17/2025 Diagnosis: spinal stenosis lumbar region without neurogenic claudication s/p L3-4, L4-5 decompression Assessment: 65 y/o male s/p L3-4, L 4-5 decompression surgery on 06/17/2025. Reports R LE pain has resolved but L LE and lumbar pain remain limiting ability to walk long distances and stand for prolonged periods. He also reports difficulty with balance. Examination shows decreased lumbar AROM, decreased hip AROM, decreased hip strength, impaired balance and imparied gait pattern. Recommend PT 2x/week for 5 weeks to address impairments, implement HEP, and optimize functional mobility. Frequency and Duration: The patient will be seen 2x/week for 5 weeks Short Term Goals: 3 weeks I with HEP Pt will demonstrate standign balance on airex with eyes open and no sway > 30sec Clerk Guide Goals: 5 weeks I with HEP and self management of sx Pt will be able to ambulate > 25 min wth pain < 3/10 and LRAD Pt will be able to stand to perform chores with pain < 3/10 Treatment Plan: Modalities to reduce pain, spasms and effusion. Manual therapy to restore motion and function. Therapeutic exercise to improve strength and flexibility. Neuromuscular re-education for posture and balance. Therapeutic activities to return to functional activities of daily living. Electronically signed by: Ioana Bai PT Please sign and return to therapist. Thank you for your referral.
--- NOTE | 2025-10-23 12:00 | MHC.PT.DC ---
[facility] [place] Office [place] Office [place] Office [address] Joycelyn Simpson [address] [phone] F: [phone] F: [phone] F: [phone] F: [phone] Physical Therapy Discharge Report Diagnosis: spinal stenosis lumbar region without neurogenic claudication s/p L3-4, L4-5 decompression Date of Surgery: 06/17/2025 Date of Evaluation: 10/12/25 Date of Discharge: 10/23/25 Treatments to Date: 3 Cancellations to Date: 0 No Shows to Date: 0 Discharge Status: Patient Elected to Stop Discharge Summary: Pt called and self discharged reporting increased pain with PT. Electronically signed by: Ioana Bai PT Please sign and return to therapist. Thank you for your referral.
== END 2025-10-23 12:00 | disposition home or self-care (01) ==
LOC: HO.PT 17:00
PROVIDERS: PCP Nurse Practitioner Family; Visit Provider Physician Assistant
DX: M48.061 Spinal stenosis, lumbar region without neurogenic claudication (principal); Z98.890 Other specified postprocedural states
CPT/HCPCS: 97110; 97162